=== PATIENT | female | born 1985 | race Caucasian/White ===

== ENCOUNTER 2016-09-14 02:37 | Emergency (ER) | payer OTHER ==
[2016-09-14] MEDS ORDERED: KETOROLAC 30 MG/ML VIAL (J1885) As Ordered ONE (03:32)
[2016-09-14] MEDS ORDERED: LORazepam 2 MG/ML VIAL (J2060) As Ordered ONE ×2 (03:35→04:32)
--- NOTE | 2016-09-14 05:34 | EDDOCDS ---
Physician Documentation [facility] Name: Alessia Huff Age: 31 yrs Sex: Female : 1985 Arrival Date: 09/14/2016 Time: 02:37 Bed 5 Private MD: Disposition: 09/14/16 05:16 Discharged to Home/Self Care. Impression: Pelvic and perineal pain - Chronic. - Condition is Stable. - Medication Reconciliation, Local Pharmacy Hours form. - Follow up: Private Physician; When: Call to arrange an appointment; Reason: Recheck today's complaints, Continuance of care. - Problem is chronic. - Symptoms have improved. Historical: - Allergies: Morphine (Chest pain, SOB, itching); Suprax (Hives); - Home Meds: 1. estradiol 2 mg Oral tab 2 tab once daily 2. oxycodone 5 mg Oral tab 3 times per day (Last dose: 09/13/2016 23:00) 3. Xanax 0.5 mg Oral tab 1 tab as needed 4. Zanaflex 4 mg Oral tab 1 tab every 8 hours 5. Zoloft 100 mg Oral tab 2 tabs once daily - PMHx: Anxiety; Endometriosis; IBS; ulcers; - PSHx: laproscopy X 8; Hysterectomy; - Social history: Smoking status: Patient states was never smoker of tobacco. No barriers to communication noted, The patient speaks fluent Serbian, Speaks appropriately for age. - Family history: No immediate family members are acutely ill. - : The pt / caregiver states he / she is not on anticoagulants. Home medication list is obtained from the patient. - Exposure Risk Screening:: None identified. 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 1 in. (154.94 cm) (R); 02:46 BP 138 / 102 LA Standing (man/lg); jmb 05:32 BP 92 / 58; Pulse 64; Resp 18; Temp 97.1(O); Pulse Ox 96% on R/A; Pain 3/10; nn1 02:46 Body Mass Index 33.07 (79.38 kg, 154.94 cm) andrea MDM: 03:26 IV Saline Lock ordered. cs11 03:26 ketorolac 30 mg IVP once ordered. cs11 03:32 LORazepam 1 mg IVP once ordered. cs11 03:40 Financial registration complete. hs2 03:41 [facility] Payment Agreement was scanned into [employer] and attached to record. hs2 04:29 LORazepam 1 mg IVP once ordered. cs11 Administered Medications: 03:42 Drug: ketorolac 30 mg [ketorolac 30 mg/mL (1 mL) injection solution (1 mL)] Route: IVP; nn1 Site: left antecubital; 03:42 Drug: LORazepam 1 mg [lorazepam 2 mg/mL injection solution (0.5 mL)] Route: IVP; Site: nn1 left antecubital; 04:42 Drug: LORazepam 1 mg [lorazepam 2 mg/mL injection solution (0.5 mL)] Route: IVP; Site: nn1 left antecubital; Signatures: Skyler Miramontes, DO cs11 Brijesh OrtizRN RN juanab Ariel Aguilar,RN RN nn1 Amy Valdez, Reg Reg hs2 The chart was reviewed and I authenticate all verbal orders and agree with the evaluation and treatment provided.Attachments: 03:41 [facility] Payment Agreement hs2 MTDD
--- NOTE | 2016-09-14 05:34 | EDDOCDS ---
Nurse's Notes [facility] Name: Alessia Huff Age: 31 yrs Sex: Female : 1985 Arrival Date: 09/14/2016 Time: 02:37 Bed 5 Private MD: Diagnosis: Pelvic and perineal pain-Chronic Presentation: 09/14 02:43 Presenting complaint: Patient states: Patient reports pelvic pain that has been present jmb for couple days since seeing specialist in [place]. Patient reports having transvaginal trigger point injections and abdominal trigger point injections. Adult Sepsis Screening: The patient does not have new or worsening altered mentation. Patient's respiratory rate is less than 22. Systolic blood pressure is greater than 100. Patient has a qSOFA score of 0- Negative Sepsis Screen. Suicide/Homicide risk assessment- the patient denies having any suicidal and/or homicidal ideations and does not present with any other emotional, behavioral or mental health complaints. Status: Patient is not a pump servicer helper or dependent. Transition of care: patient was not received from another setting of care. 02:43 Acuity: LORENZO Level 3 b 02:43 Method Of Arrival: Walkin/Carried/Asstd jmb Triage Assessment: 02:46 General: Appears uncomfortable, Behavior is appropriate for age, cooperative. Pain: jmb Location: pelvis Pain currently is 7 out of 10 on a pain scale. HIV screening NA for this visit Offered previously. The patient is triaged at the bedside. See Assessment in Nurses Notes section of ED record. The patient is triaged at the bedside. See Assessment in Nurses Notes section of ED record. Neurological: Level of Consciousness is awake, alert, obeys commands, Oriented to person, place, time, Gait is steady, Speech is normal, Facial symmetry appears normal, Facial symmetry: tongue is midline. Respiratory: Airway is patent Respiratory effort is even, unlabored, Respiratory pattern is regular, symmetrical. Derm: Skin is pink, warm & dry. Musculoskeletal: Capillary refill < 3 seconds. 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 estradiol 2 mg Oral tab 2 tab once daily 2. oxycodone 5 mg Oral tab 3 times per day (Last dose: 09/13/2016 23:00) 3. Xanax 0.5 mg Oral tab 1 tab as needed 4. Zanaflex 4 mg Oral tab 1 tab every 8 hours 5. Zoloft 100 mg Oral tab 2 tabs once daily - PMHx: Anxiety; Endometriosis; IBS; ulcers; - PSHx: laproscopy X 8; Hysterectomy; - Social history: Smoking status: Patient states was never smoker of tobacco. No barriers to communication noted, The patient speaks fluent Filipino, Speaks appropriately for age. - Family history: No immediate family members are acutely ill. - : The pt / caregiver states he / she is not on anticoagulants. Home medication list is obtained from the patient. - Exposure Risk Screening:: None identified. Screenin:32 Screening information is obtained from the patient. Fall risk: No risks identified. nn1 Assistance ADL's: requires no assistance with activities of daily living. Abuse/DV Screen: The patient / caregiver reports he/she is: not in a situation that causes fear, pain or injury. Nutritional screening: No deficits noted. Advance Directives: Currently, there is no health care proxy. home support is adequate. Assessment: 02:57 General: Appears distressed, uncomfortable, Behavior is anxious, crying. Pain: nn1 Location: pelvis Pain currently is 7 out of 10 on a pain scale. Neurological: Level of Consciousness is awake, alert, Oriented to person, place, time. Respiratory: Airway is patent Respiratory effort is even, unlabored. GI: Abdomen is non- distended Bowel sounds present X 4 quads. Abd is soft and non tender X 4 quads. Denies nausea, vomiting. : Denies burning with urination, vaginal bleeding. Derm: Skin is pink, warm & dry. 03:42 General: Appears uncomfortable, Behavior is crying. Neurological: Level of nn1 Consciousness is awake, alert. Derm: Skin is pink, warm & dry. 04:26 General: Appears Denies Patient reports no relief of pain at this time. Patient in nn1 room, continues to cry. Provider notified. . 04:42 General: Patient medicated for pain per orders. . nn1 05:25 General: Appears in no apparent distress, comfortable, Behavior is appropriate for age, nn1 cooperative, Patient reports improvement in condition at this time, states pain is manageable at this time. Patient resting comfortably. . Neurological: Level of Consciousness is awake, alert. Derm: Skin is pink, warm & dry. 05:32 Pain: Location: pelvis Pain currently is 3 out of 10 on a pain scale. nn1 Vital Signs: 02:46 BP 139 / 100; Pulse 105; Resp 22; Temp 97.7(O); Pulse Ox 100% on R/A; Weight 79.38 kg jmb (R); Height 5 ft. 1 in. (154.94 cm) (R); 02:46 BP 138 / 102 LA Standing (man/lg); jmb 05:32 BP 92 / 58; Pulse 64; Resp 18; Temp 97.1(O); Pulse Ox 96% on R/A; Pain 3/10; nn1 02:46 Body Mass Index 33.07 (79.38 kg, 154.94 cm) [facility] Vitals: 02:46 Log In Time: September 14, 2016 at 02:35. [facility] ED Course: 02:38 Patient visited by Taylor Arroyo. gjb 02:38 Patient moved to Waiting gjb 02:44 Triage Initiated [facility] 02:51 Patient moved to 5 jm 02:54 Skyler Miramontes DO is Attending Physician. cs11 02:54 Patient visited by kSyler Miramontes DO. cs11 03:41 [facility] Payment Agreement was scanned into [employer] and attached to record. hs2 03:43 Inserted saline lock: 20 gauge in left antecubital area. nn1 04:18 Patient visited by Ariel Aguilar RN. nn1 05:33 The patient / caregiver is instructed regarding the plan of care and ED course. nn1 05:33 Discontinued IV bleeding controlled, pressure dressing applied, No redness/swelling at nn1 site. No procedures done that require assistance. Administered Medications: 03:42 Drug: ketorolac 30 mg [ketorolac 30 mg/mL (1 mL) injection solution (1 mL)] Route: IVP; nn1 Site: left antecubital; 03:42 Drug: LORazepam 1 mg [lorazepam 2 mg/mL injection solution (0.5 mL)] Route: IVP; Site: nn1 left antecubital; 04:42 Drug: LORazepam 1 mg [lorazepam 2 mg/mL injection solution (0.5 mL)] Route: IVP; Site: nn1 left antecubital; Order Results: There are currently no results for this order. Outcome: 05:16 Discharge ordered by Provider. cs11 05:33 Discharge Assessment: Patient awake, alert and oriented x 3. No cognitive and/or nn1 functional deficits noted. Patient verbalized understanding of disposition instructions. patient administered narcotics - yes. Pt provided with safe discharge. The following High Risk Discharge criteria are identified: None. Discharged to home ambulatory. Condition: stable. No special radiology studies were completed. Property :Personal belongings accompany Pt. 05:33 Patient left the ED. nn1 Signatures: Skyler Miramontes, DO cs11 Brijesh OrtizRN RN Ariel Etienne RN RN nn1 Taylor Arroyo Hillary, Reg Reg hs2 MTDD
--- NOTE | 2016-09-16 06:34 | EDDOCDS ---
Physician Documentation [facility] Name: Alessia Huff Age: 31 yrs Sex: Female : 1985 Arrival Date: 09/14/2016 Time: 02:37 Bed 5 Private MD: Disposition: 09/14/16 05:16 Discharged to Home/Self Care. Impression: Pelvic and perineal pain - Chronic. - Condition is Stable. - Medication Reconciliation, Local Pharmacy Hours form. - Follow up: Private Physician; When: Call to arrange an appointment; Reason: Recheck today's complaints, Continuance of care. - Problem is chronic. - Symptoms have improved. Historical: - Allergies: Morphine (Chest pain, SOB, itching); Suprax (Hives); - Home Meds: 1. estradiol 2 mg Oral tab 2 tab once daily 2. oxycodone 5 mg Oral tab 3 times per day (Last dose: 09/13/2016 23:00) 3. Xanax 0.5 mg Oral tab 1 tab as needed 4. Zanaflex 4 mg Oral tab 1 tab every 8 hours 5. Zoloft 100 mg Oral tab 2 tabs once daily - PMHx: Anxiety; Endometriosis; IBS; ulcers; - PSHx: laproscopy X 8; Hysterectomy; - Social history: Smoking status: Patient states was never smoker of tobacco. No barriers to communication noted, The patient speaks fluent Belarusian, Speaks appropriately for age. - Family history: No immediate family members are acutely ill. - : The pt / caregiver states he / she is not on anticoagulants. Home medication list is obtained from the patient. - Exposure Risk Screening:: None identified. 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 1 in. (154.94 cm) (R); 02:46 BP 138 / 102 LA Standing (man/lg); jmb 05:32 BP 92 / 58; Pulse 64; Resp 18; Temp 97.1(O); Pulse Ox 96% on R/A; Pain 3/10; nn1 02:46 Body Mass Index 33.07 (79.38 kg, 154.94 cm) andrea MDM: 03:26 IV Saline Lock ordered. cs11 03:26 ketorolac 30 mg IVP once ordered. cs11 03:32 LORazepam 1 mg IVP once ordered. cs11 03:40 Financial registration complete. hs2 03:41 [facility] Payment Agreement was scanned into [employer] and attached to record. hs2 04:29 LORazepam 1 mg IVP once ordered. cs11 09:06 T-Sheet-- Draft Copy was scanned into [employer] and attached to record. seh Administered Medications: 03:42 Drug: ketorolac 30 mg [ketorolac 30 mg/mL (1 mL) injection solution (1 mL)] Route: IVP; nn1 Site: left antecubital; 03:42 Drug: LORazepam 1 mg [lorazepam 2 mg/mL injection solution (0.5 mL)] Route: IVP; Site: nn1 left antecubital; 04:42 Drug: LORazepam 1 mg [lorazepam 2 mg/mL injection solution (0.5 mL)] Route: IVP; Site: nn1 left antecubital; Signatures: Skyler Miramontes, DO cs11 Brijesh Ortiz RN RN jmb Ariel Aguilar RN RN nn1 Amy Valdez, Reg Reg hs2 Debby Villaseñor [facility] The chart was reviewed and I authenticate all verbal orders and agree with the evaluation and treatment provided.Attachments: 03:41 [facility] Payment Agreement hs2 09:06 T-Sheet-- Draft Copy se Chart Complete MTDD
--- NOTE | 2016-09-16 06:34 | EDDOCDS ---
Physician Documentation [facility] Name: Alessia Huff Age: 31 yrs Sex: Female : 1985 Arrival Date: 09/14/2016 Time: 02:37 Bed 5 Private MD: Disposition: 09/14/16 05:16 Discharged to Home/Self Care. Impression: Pelvic and perineal pain - Chronic. - Condition is Stable. - Medication Reconciliation, Local Pharmacy Hours form. - Follow up: Private Physician; When: Call to arrange an appointment; Reason: Recheck today's complaints, Continuance of care. - Problem is chronic. - Symptoms have improved. Historical: - Allergies: Morphine (Chest pain, SOB, itching); Suprax (Hives); - Home Meds: 1. estradiol 2 mg Oral tab 2 tab once daily 2. oxycodone 5 mg Oral tab 3 times per day (Last dose: 09/13/2016 23:00) 3. Xanax 0.5 mg Oral tab 1 tab as needed 4. Zanaflex 4 mg Oral tab 1 tab every 8 hours 5. Zoloft 100 mg Oral tab 2 tabs once daily - PMHx: Anxiety; Endometriosis; IBS; ulcers; - PSHx: laproscopy X 8; Hysterectomy; - Social history: Smoking status: Patient states was never smoker of tobacco. No barriers to communication noted, The patient speaks fluent Faroese, Speaks appropriately for age. - Family history: No immediate family members are acutely ill. - : The pt / caregiver states he / she is not on anticoagulants. Home medication list is obtained from the patient. - Exposure Risk Screening:: None identified. 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 1 in. (154.94 cm) (R); 02:46 BP 138 / 102 LA Standing (man/lg); jmb 05:32 BP 92 / 58; Pulse 64; Resp 18; Temp 97.1(O); Pulse Ox 96% on R/A; Pain 3/10; nn1 02:46 Body Mass Index 33.07 (79.38 kg, 154.94 cm) andrea MDM: 03:26 IV Saline Lock ordered. cs11 03:26 ketorolac 30 mg IVP once ordered. cs11 03:32 LORazepam 1 mg IVP once ordered. cs11 03:40 Financial registration complete. hs2 03:41 [facility] Payment Agreement was scanned into [employer] and attached to record. hs2 04:29 LORazepam 1 mg IVP once ordered. cs11 09:06 T-Sheet-- Draft Copy was scanned into [employer] and attached to record. seh Administered Medications: 03:42 Drug: ketorolac 30 mg [ketorolac 30 mg/mL (1 mL) injection solution (1 mL)] Route: IVP; nn1 Site: left antecubital; 03:42 Drug: LORazepam 1 mg [lorazepam 2 mg/mL injection solution (0.5 mL)] Route: IVP; Site: nn1 left antecubital; 04:42 Drug: LORazepam 1 mg [lorazepam 2 mg/mL injection solution (0.5 mL)] Route: IVP; Site: nn1 left antecubital; Signatures: Skyler Miramontes, DO cs11 Brijesh Ortiz RN RN jmb Ariel Aguilar RN RN nn1 Amy Valdez, Reg Reg hs2 Debby Villaseñor [facility] The chart was reviewed and I authenticate all verbal orders and agree with the evaluation and treatment provided.Attachments: 03:41 [facility] Payment Agreement hs2 09:06 T-Sheet-- Draft Copy se Chart Complete MTDD
--- NOTE | 2016-09-16 06:34 | EDDOCDS ---
Nurse's Notes [facility] Name: Alessia Huff Age: 31 yrs Sex: Female : 1985 Arrival Date: 09/14/2016 Time: 02:37 Bed 5 Private MD: Diagnosis: Pelvic and perineal pain-Chronic Presentation: 09/14 02:43 Presenting complaint: Patient states: Patient reports pelvic pain that has been present jmb for couple days since seeing specialist in [place]. Patient reports having transvaginal trigger point injections and abdominal trigger point injections. Adult Sepsis Screening: The patient does not have new or worsening altered mentation. Patient's respiratory rate is less than 22. Systolic blood pressure is greater than 100. Patient has a qSOFA score of 0- Negative Sepsis Screen. Suicide/Homicide risk assessment- the patient denies having any suicidal and/or homicidal ideations and does not present with any other emotional, behavioral or mental health complaints. Status: Patient is not a services tech or dependent. Transition of care: patient was not received from another setting of care. 02:43 Acuity: LORENZO Level 3 b 02:43 Method Of Arrival: Walkin/Carried/Asstd jmb Triage Assessment: 02:46 General: Appears uncomfortable, Behavior is appropriate for age, cooperative. Pain: jmb Location: pelvis Pain currently is 7 out of 10 on a pain scale. HIV screening NA for this visit Offered previously. The patient is triaged at the bedside. See Assessment in Nurses Notes section of ED record. The patient is triaged at the bedside. See Assessment in Nurses Notes section of ED record. Neurological: Level of Consciousness is awake, alert, obeys commands, Oriented to person, place, time, Gait is steady, Speech is normal, Facial symmetry appears normal, Facial symmetry: tongue is midline. Respiratory: Airway is patent Respiratory effort is even, unlabored, Respiratory pattern is regular, symmetrical. Derm: Skin is pink, warm & dry. Musculoskeletal: Capillary refill < 3 seconds. 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 estradiol 2 mg Oral tab 2 tab once daily 2. oxycodone 5 mg Oral tab 3 times per day (Last dose: 09/13/2016 23:00) 3. Xanax 0.5 mg Oral tab 1 tab as needed 4. Zanaflex 4 mg Oral tab 1 tab every 8 hours 5. Zoloft 100 mg Oral tab 2 tabs once daily - PMHx: Anxiety; Endometriosis; IBS; ulcers; - PSHx: laproscopy X 8; Hysterectomy; - Social history: Smoking status: Patient states was never smoker of tobacco. No barriers to communication noted, The patient speaks fluent Gabonese, Speaks appropriately for age. - Family history: No immediate family members are acutely ill. - : The pt / caregiver states he / she is not on anticoagulants. Home medication list is obtained from the patient. - Exposure Risk Screening:: None identified. Screenin:32 Screening information is obtained from the patient. Fall risk: No risks identified. nn1 Assistance ADL's: requires no assistance with activities of daily living. Abuse/DV Screen: The patient / caregiver reports he/she is: not in a situation that causes fear, pain or injury. Nutritional screening: No deficits noted. Advance Directives: Currently, there is no health care proxy. home support is adequate. Assessment: 02:57 General: Appears distressed, uncomfortable, Behavior is anxious, crying. Pain: nn1 Location: pelvis Pain currently is 7 out of 10 on a pain scale. Neurological: Level of Consciousness is awake, alert, Oriented to person, place, time. Respiratory: Airway is patent Respiratory effort is even, unlabored. GI: Abdomen is non- distended Bowel sounds present X 4 quads. Abd is soft and non tender X 4 quads. Denies nausea, vomiting. : Denies burning with urination, vaginal bleeding. Derm: Skin is pink, warm & dry. 03:42 General: Appears uncomfortable, Behavior is crying. Neurological: Level of nn1 Consciousness is awake, alert. Derm: Skin is pink, warm & dry. 04:26 General: Appears Denies Patient reports no relief of pain at this time. Patient in nn1 room, continues to cry. Provider notified. . 04:42 General: Patient medicated for pain per orders. . nn1 05:25 General: Appears in no apparent distress, comfortable, Behavior is appropriate for age, nn1 cooperative, Patient reports improvement in condition at this time, states pain is manageable at this time. Patient resting comfortably. . Neurological: Level of Consciousness is awake, alert. Derm: Skin is pink, warm & dry. 05:32 Pain: Location: pelvis Pain currently is 3 out of 10 on a pain scale. nn1 Vital Signs: 02:46 BP 139 / 100; Pulse 105; Resp 22; Temp 97.7(O); Pulse Ox 100% on R/A; Weight 79.38 kg [facility] (R); Height 5 ft. 1 in. (154.94 cm) (R); 02:46 BP 138 / 102 LA Standing (man/lg); jmb 05:32 BP 92 / 58; Pulse 64; Resp 18; Temp 97.1(O); Pulse Ox 96% on R/A; Pain 3/10; nn1 02:46 Body Mass Index 33.07 (79.38 kg, 154.94 cm) [facility] Vitals: 02:46 Log In Time: September 14, 2016 at 02:35. [facility] ED Course: 02:38 Patient visited by Taylor Arroyo. gjb 02:38 Patient moved to Waiting gj 02:44 Triage Initiated [facility] 02:51 Patient moved to 5 jm 02:54 Skyler Miramontes DO is Attending Physician. cs11 02:54 Patient visited by Skyler Miramontes DO. cs11 03:41 [facility] Payment Agreement was scanned into [employer] and attached to record. hs2 03:43 Inserted saline lock: 20 gauge in left antecubital area. nn1 04:18 Patient visited by Ariel Aguilar RN. nn1 05:33 The patient / caregiver is instructed regarding the plan of care and ED course. nn1 05:33 Discontinued IV bleeding controlled, pressure dressing applied, No redness/swelling at nn1 site. No procedures done that require assistance. 09:06 T-Sheet-- Draft Copy was scanned into [employer] and attached to record. [facility] Administered Medications: 03:42 Drug: ketorolac 30 mg [ketorolac 30 mg/mL (1 mL) injection solution (1 mL)] Route: IVP; nn1 Site: left antecubital; 03:42 Drug: LORazepam 1 mg [lorazepam 2 mg/mL injection solution (0.5 mL)] Route: IVP; Site: nn1 left antecubital; 04:42 Drug: LORazepam 1 mg [lorazepam 2 mg/mL injection solution (0.5 mL)] Route: IVP; Site: nn1 left antecubital; Order Results: There are currently no results for this order. Outcome: 05:16 Discharge ordered by Provider. cs11 05:33 Discharge Assessment: Patient awake, alert and oriented x 3. No cognitive and/or nn1 functional deficits noted. Patient verbalized understanding of disposition instructions. patient administered narcotics - yes. Pt provided with safe discharge. The following High Risk Discharge criteria are identified: None. Discharged to home ambulatory. Condition: stable. No special radiology studies were completed. Property :Personal belongings accompany Pt. 05:33 Patient left the ED. nn1 Signatures: Skyler Miramontes, DO cs11 Brijesh OrtizRN RN Ariel EtienneRN RN nn1 aTylor Arroyo Hillary, Reg Reg hs2 Debby Villaseñor Chart Complete MTDD
== END 2016-09-14 05:33 | disposition home or self-care (01) ==
LOC: M ED 02:37
DX: R10.2 Pelvic and perineal pain (principal); K58.9 Irritable bowel syndrome, unspecified; F41.9 Anxiety disorder, unspecified; N80.9 Endometriosis, unspecified; Z90.710 Acquired absence of both cervix and uterus; Z79.899 Other long term (current) drug therapy; Z79.891 Long term (current) use of opiate analgesic; Z79.890 Hormone replacement therapy; Z88.5 Allergy status to narcotic agent
CPT/HCPCS: 99283; J1885; J2060

== ENCOUNTER 2016-10-11 03:12 | Emergency (ER) | payer OTHER ==
[2016-10-11 04:06] LABS: BASO % 0.5 % (0.0-1.0); EOS # 0.5 K/mm3 (0.0-0.50); EOS % 8.2 % (0.0-3.0); LARGE UNSTAINED CELL # 0.2 K/mm3 (0.0-0.4); LYMPH # 2.3 K/mm3 (1.5-4.5); LYMPH % 37.1 % (24.0-44.0); MEAN CORPUSCULAR HEMOGLOBIN 28.9 pg (27.0-33.0); MEAN CORPUSCULAR HGB CONC 33.3 g/dl (32.0-36.5); MONO # 0.3 K/mm3 (0.0-0.8); MONO % 4.4 % (0.0-5.0); NEUTROPHILS # 2.9 K/mm3 (1.8-7.7); NEUTROPHILS % 46.8 % (36.0-66.0); PLATELET COUNT, AUTOMATED 283 k/mm3 (150-450); RED CELL DISTRIBUTION WIDTH 13.4 % (11.5-14.5); WHITE BLOOD COUNT 6.1 K/mm3 (4.0-10.0)
[2016-10-11] MEDS ORDERED: HYDROmorphone HCL 1 MG/ML SYRINGE (J1170) As Ordered ONE ×2 (04:06→06:41)
[2016-10-11] MEDS ORDERED: ONDANSETRON 4MG/2ML VIAL (J2405) As Ordered ONE (04:06)
[2016-10-11 04:39] LABS: CONTROL LINE HCG INT CTR LINE PRESENT
[2016-10-11 04:46] LABS: ALBUMIN 3.4 GM/DL (3.2-5.2); ALBUMIN/GLOBULIN RATIO 0.92 (1.00-1.93); ALKALINE PHOSPHATASE 64 U/L (45-117); ALT/SGPT 14 U/L (12-78); AMYLASE 50 U/L (25-115); ANION GAP 8 MEQ/L (8-16); AST/SGOT 15 U/L (15-37); BILIRUBIN,DIRECT < 0.1 MG/DL (0.0-0.2); BILIRUBIN,TOTAL 0.1 MG/DL (0.2-1.0); BLOOD UREA NITROGEN 11 MG/DL (7-18); CALCIUM LEVEL 8.4 MG/DL (8.5-10.1); CARBON DIOXIDE LEVEL 26 MEQ/L (21-32); CHLORIDE LEVEL 106 MEQ/L (98-107); CREATININE FOR GFR 0.81 MG/DL (0.55-1.02); GLOMERULAR FILTRATION RATE > 60.0 (>60); GLUCOSE, FASTING 96 MG/DL (70-105); POTASSIUM SERUM 3.6 MEQ/L (3.5-5.1); SODIUM LEVEL 140 MEQ/L (136-145); TOTAL PROTEIN 7.1 GM/DL (6.4-8.2)
[2016-10-11 04:50] LABS: INR 1.04
[2016-10-11] MEDS ORDERED: GI COCKTAIL 50ML BTL(HYOSCYAMINE/MAALOX/LIDOCAINE VISCOUS)(1:3:1) As Ordered ONE (05:09)
[2016-10-11] MEDS ORDERED: PANTOPRAZOLE 40MG INJ (PROTONIX) (C9113) As Ordered ONE (05:09)
[2016-10-11] MEDS ORDERED: ISOVUE-370 76% 100ML VIAL (Q9967) As Ordered ONE (05:11)
--- NOTE | 2016-10-11 05:40 | REPUSA ---
CLINICAL HISTORY: Abdominal pain. TECHNIQUE: Multiple axial, sagittal and coronal CT images were obtained through the abdomen and pelvi s after administration of intravenous contrast material. COMMENTS: The liver is mildly enlarged with decreased attenuation without mass or defect. There is no intra or extrahepatic biliary ductal dilatation. The spleen is normal. The gallbladder is surgically absent. T he pancreas is of normal contour and attenuation characteristics. There is no evidence of adrenal mas s. Both kidneys demonstrate prompt and equal nephrograms. The kidneys are normal in size, shape and conf iguration. There is no evidence of renal or ureteral mass. No renal or ureteral calculi are identifie d. There is no hydroureter or hydronephrosis. No evidence for appendicitis. There is no bowel wall thickening. No evidence for small or large farhat l obstruction. There is no evidence of abdominal ascites or lymphadenopathy. Both small bowels. There is no evidence of intrinsic or extrinsic bladder mass. There is no pelvic ascites or lymphadeno mame. Fecal stasis. Images of the lung bases show no evidence of pleural or parenchymal mass. There are no pleural effusi ons. The bony structures are free of lytic or blastic lesions. Multilevel degenerative changes are seen in volving the thoracolumbar spine. Scattered calcifications are seen involving the aorta and major bran ches compatible with atherosclerosis. IMPRESSION: Fluid filled small bowels. Ileus versus developing enteritis. Fecal stasis. Thank you for your kind referral of this patient.
[2016-10-11] MEDS ORDERED: SUCRALFATE 1 GM TAB As Ordered ONE (06:41)
[2016-10-11] MEDS ORDERED: FAMOTIDINE 20 MG TAB As Ordered ONE (06:41)
--- NOTE | 2016-10-11 07:04 | EDDOCDS ---
Physician Documentation [facility] Name: Alessia Huff Age: 31 yrs Sex: Female : 1985 Arrival Date: 10/11/2016 Time: 03:12 Bed 6 Private MD: Disposition: 10/11/16 06:29 Discharged to Home/Self Care. Impression: Abdominal and pelvic pain - suspect PUD. - Condition is Stable. - Discharge Instructions: Abdominal Pain, Adult, Peptic Ulcer Disease. - Prescriptions for Carafate 1 gram Oral Tablet - take 1 tablet by ORAL route 4 times per day take on an empty stomach, beginning on waking and last dose at bedtime; 100 tablet. Pepcid 20 mg Oral Tablet - take 1 tablet by ORAL route every 12 hours for 5 days; 10 tablet. Percocet 5- 325 mg Oral Tablet - take 1 tablet by ORAL route every 6 hours As needed MDD: 4 tabs; 20 tablet. - Medication Reconciliation, Local Pharmacy Hours form. - Follow up: PAMELA Ga; When: 2 - 3 days; Reason: Continuance of care. - Problem is an acute exacerbation. - Symptoms have improved. Historical: - Allergies: Morphine (Chest pain, SOB, itching); Suprax (Hives); - Home Meds: 1. estradiol 2 mg Oral tab 2 tab once daily 2. oxycodone 5 mg Oral tab 3 times per day 3. Xanax 0.5 mg Oral tab 1 tab as needed 4. Zanaflex 4 mg Oral tab 1 tab every 8 hours 5. Zoloft 100 mg Oral tab 2 tabs once daily 6. Nexium 40 mg Oral cpDR 1 cap 2 times per day - PMHx: Anxiety; Endometriosis; IBS; ulcers; - PSHx: laproscopy X 8; Hysterectomy; Hernia repair- Umbilical; Cholecystectomy; Atrial septal defect repair; cystocele rupture repair; Laparoscopy; - Social history: Smoking status: Smoking status: Patient states was never smoker of tobacco. No barriers to communication noted, The patient speaks fluent Malaysian, Speaks appropriately for age. - Family history: No immediate family members are acutely ill. - : The pt / caregiver states he / she is not on anticoagulants. Home medication list is obtained from the patient. - Exposure Risk Screening:: None identified. 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 1 in. (154.94 cm); Pain 7/10; 03:28 Temp 98.9(O); kas2 03:33 BP 141 / 93 (auto/); mv5 03:34 Pulse Ox 96% ; mv5 04:03 BP 123 / 91 (auto/); mv5 04:03 Pulse Ox 98% ; mv5 04:33 BP 118 / 88 (auto/); mv5 04:33 Pulse Ox 96% ; mv5 05:03 BP 122 / 95 (auto/); mv5 05:03 Pulse 71; Resp 16; Pulse Ox 96% ; mv5 03:23 Body Mass Index 32.12 (77.11 kg, 154.94 cm) nn1 MDM: 03:58 NS 0.9% 1000 ml IV at bolus once ordered. mm11 03:58 Ondansetron 4 mg IVP once ordered. mm11 03:58 IV Saline Lock ordered. mm11 03:58 Undress patient appropriately for examination ordered. mm11 03:58 Dilaudid - HYDROmorphone 0.5 mg IVP once ordered. mm11 03:59 Amylase Ordered. EDMS 03:59 Basic Metabolic Profile Ordered. EDMS 03:59 CBC with Diff Ordered. EDMS 03:59 HCG,Serum Qualitative Ordered. EDMS 03:59 Lipase Ordered. EDMS 03:59 Liver Profile Ordered. EDMS 03:59 Partial Thromboplastin Time Ordered. EDMS 03:59 Prothrombin Time Profile\E\INR Ordered. EDMS 04:00 Type & Screen Ordered. EDMS 04:00 NOTHING BY MOUTH+DIET ordered. EDMS 04:54 Financial registration complete. pm4 05:03 GI Cocktail - (Alum-Mag Hydroxide-Simeth 30 ml, Lidocaine 10 ml, Hyoscyamine 10 ml) PO mm11 once; Pre-mixed 50mL unit dose ordered. 05:03 pantoprazole 40 mg IV at bolus once ordered. mm11 05:03 Basic Metabolic Profile Reviewed. mm11 05:03 CBC with Diff Reviewed. mm11 05:03 Liver Profile Reviewed. mm11 05:03 Amylase Reviewed. mm11 05:03 HCG,Serum Qualitative Reviewed. mm11 05:03 Lipase Reviewed. mm11 05:03 Partial Thromboplastin Time Reviewed. mm11 05:03 Prothrombin Time Profile\E\INR Reviewed. mm11 05:03 Type & Screen Reviewed. mm11 05:05 CT ABD & PELVIS: IV Contrast Only Ordered. EDMS 05:17 [facility] Payment Agreement was scanned into [employer] and attached to record. pm4 06:29 Sucralfate 1 grams PO once ordered. mm11 06:29 Famotidine 20 mg PO once ordered. mm11 06:29 Dilaudid - HYDROmorphone 0.5 mg IVP once ordered. mm11 06:35 CT ABD & PELVIS: IV Contrast Only Reviewed. mm11 Administered Medications: 04:17 Drug: Dilaudid - HYDROmorphone 0.5 mg [hydromorphone 1 mg/mL injection syringe (0.5 mv5 mL)] Route: IVP; Site: left antecubital; 06:54 Follow up: Response: No Adverse Reaction mv5 04:18 Drug: NS 0.9% 1000 ml [sodium chloride 0.9 % intravenous solution] Route: IV; Rate: mv5 bolus; Site: left antecubital; 04:18 Drug: Ondansetron 4 mg [ondansetron HCl 2 mg/mL intravenous solution (2 mL)] Route: mv5 IVP; Site: left antecubital; 06:54 Follow up: Response: No Adverse Reaction mv5 05:15 Drug: GI Cocktail - (Alum-Mag Hydroxide-Simeth Suspension 225 mg-200 mg-25 mg/5 mL 30 mv5 ml, Lidocaine Liquid 2 % 10 ml, Hyoscyamine Liquid 10 ml) Route: PO; 06:54 Follow up: Response: No Adverse Reaction mv5 05:15 Drug: pantoprazole 40 mg [pantoprazole 40 mg intravenous solution] Route: IV; Rate: mv5 bolus; Site: left antecubital; 06:56 Follow up: IV Status: Completed infusion mv5 06:51 Drug: Sucralfate 1 grams [sucralfate 1 gram tablet (1 tabs)] Route: PO; mv5 06:53 Follow up: Response: No Adverse Reaction mv5 06:51 Drug: Famotidine 20 mg [famotidine 20 mg tablet (1 tabs)] Route: PO; mv5 06:53 Follow up: Response: No Adverse Reaction mv5 06:51 Drug: Dilaudid - HYDROmorphone 0.5 mg [hydromorphone 1 mg/mL injection syringe (0.5 mv5 mL)] Route: IVP; Site: left antecubital; 06:53 Follow up: Response: No Adverse Reaction mv5 Signatures: Dispatcher [employer] Joaquin Garcia DO DO mm11 Ariel Augilar,RN RN nn1 Walt Piña, Reg Reg pm4 Millie Morales RN RN mv5 The chart was reviewed and I authenticate all verbal orders and agree with the evaluation and treatment provided.Attachments: 05:17 [facility] Payment Agreement pm4 MTDD
--- NOTE | 2016-10-11 07:04 | EDDOCDS ---
Nurse's Notes [facility] Name: Alessia Huff Age: 31 yrs Sex: Female : 1985 Arrival Date: 10/11/2016 Time: 03:12 Bed 6 Private MD: Diagnosis: Abdominal and pelvic pain-suspect PUD Presentation: 10/11 03:18 Presenting complaint: Patient states: for the past 3 days she has been having nn1 increasing abdominal pain. Seen by PCP, prescribed nexium. Patient reports vomiting with blood. Risk factors: the patient reports no vaginal bleeding. Adult Sepsis Screening: The patient does not have new or worsening altered mentation. Patient's respiratory rate is less than 22. Systolic blood pressure is greater than 100. Patient has a qSOFA score of 0- Negative Sepsis Screen. Suicide/Homicide risk assessment- the patient denies having any suicidal and/or homicidal ideations and does not present with any other emotional, behavioral or mental health complaints. Status: The patient is a dependent. Transition of care: patient was not received from another setting of care. 03:18 Acuity: LORENZO Level 3 nn1 03:18 Method Of Arrival: Walkin/Carried/Asstd nn1 Triage Assessment: 03:24 General: Appears uncomfortable, Behavior is appropriate for age, cooperative. Pain: nn1 Location: epigastric area Pain currently is 7 out of 10 on a pain scale. Quality of pain is described as "Tearing throbbing pain" Pain began 2 weeks ago increasing steadily. HIV screening NA for this visit Offered previously. GI: Abdomen is non- distended Bowel sounds present X 4 quads. Abd is tender to palpation in epigastric area, right upper quadrant and left upper quadrant Reports nausea, vomiting, Vomiting coffee grounds x 2 weeks. More frequent last couple of days. Derm: Skin is pink, warm & dry. 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 estradiol 2 mg Oral tab 2 tab once daily 2. oxycodone 5 mg Oral tab 3 times per day 3. Xanax 0.5 mg Oral tab 1 tab as needed 4. Zanaflex 4 mg Oral tab 1 tab every 8 hours 5. Zoloft 100 mg Oral tab 2 tabs once daily 6. Nexium 40 mg Oral cpDR 1 cap 2 times per day - PMHx: Anxiety; Endometriosis; IBS; ulcers; - PSHx: laproscopy X 8; Hysterectomy; Hernia repair- Umbilical; Cholecystectomy; Atrial septal defect repair; cystocele rupture repair; Laparoscopy; - Social history: Smoking status: Smoking status: Patient states was never smoker of tobacco. No barriers to communication noted, The patient speaks fluent Irish, Speaks appropriately for age. - Family history: No immediate family members are acutely ill. - : The pt / caregiver states he / she is not on anticoagulants. Home medication list is obtained from the patient. - Exposure Risk Screening:: None identified. Screenin:34 Screening information is obtained from the patient. Fall risk: No risks identified. mv5 Assistance ADL's: requires no assistance with activities of daily living. Abuse/DV Screen: The patient / caregiver reports he/she is: not in a situation that causes fear, pain or injury. Nutritional screening: No deficits noted. Advance Directives: There is no active DNR order. home support is adequate. Assessment: 03:57 General: Appears uncomfortable, well nourished, well groomed, Behavior is cooperative, mv5 pleasant. Pain: Location: right upper quadrant and left upper quadrant Pain currently is 7 out of 10 on a pain scale. Neurological: Level of Consciousness is awake, alert, Oriented to person, place, time. Cardiovascular: Capillary refill < 3 seconds Heart tones S1 S2 present. Respiratory: Airway is patent Respiratory effort is even, unlabored, Respiratory pattern is regular, symmetrical. GI: Abdomen is flat, Bowel sounds present X 4 quads. Abd is tender to palpation in right upper quadrant and left upper quadrant. Derm: Skin is pink, warm & dry. 04:38 General: Appears in no apparent distress. Respiratory: Airway is patent Respiratory mv5 effort is even, unlabored, Respiratory pattern is regular, symmetrical. Derm: Skin is pink, warm & dry. 04:52 Reassessment: Patient states symptoms have not improved. aware.. mv5 05:36 General: Appears uncomfortable, Behavior is cooperative, pleasant. Respiratory: Airway mv5 is patent Respiratory effort is even, unlabored, Respiratory pattern is regular, symmetrical. Derm: Skin is pink, warm & dry. Vital Signs: 03:23 BP 142 / 90; Pulse 98; Resp 18; Pulse Ox 98% on R/A; Weight 77.11 kg; Height 5 ft. 1 nn1 in. (154.94 cm); Pain 7/10; 03:28 Temp 98.9(O); kas2 03:33 BP 141 / 93 (auto/); mv5 03:34 Pulse Ox 96% ; mv5 04:03 BP 123 / 91 (auto/); mv5 04:03 Pulse Ox 98% ; mv5 04:33 BP 118 / 88 (auto/); mv5 04:33 Pulse Ox 96% ; mv5 05:03 BP 122 / 95 (auto/); mv5 05:03 Pulse 71; Resp 16; Pulse Ox 96% ; mv5 03:23 Body Mass Index 32.12 (77.11 kg, 154.94 cm) nn1 Vitals: 03:23 Log In Time: October 11, 2016 at 03:12. nn1 ED Course: 03:13 Patient visited by Taylor Arroyo. gjb 03:13 Patient moved to Waiting gjb 03:19 Triage Initiated nn1 03:27 Millie Morales,KAYLA is Primary Nurse. nn1 03:27 Primary Nurse role handed off by Millie Morales RN cf2 03:27 Marge Jones,KAYLA is Primary Nurse. cf2 03:27 Patient visited by Marge Jones,KAYLA. cf2 03:27 Patient moved to 6 nn1 03:29 Patient visited by Shellie Sharpe RN. kas2 03:34 The patient / caregiver is instructed regarding the plan of care and ED course. mv5 03:34 Inserted saline lock: 20 gauge in left antecubital area and blood collected. The mv5 patient tolerated the procedure well. 03:45 Joaquin Pineda DO is Attending Physician. mm11 03:45 Patient visited by Joaquin Pineda DO. mm11 03:57 Patient visited by Joaquin Pineda DO. mm11 03:57 Millie Morales,KAYLA is Primary Nurse. mv5 04:03 Liver Profile Sent. mv5 04:03 Lipase Sent. mv5 04:03 HCG,Serum Qualitative Sent. mv5 04:04 CBC with Diff Sent. mv5 04:04 Basic Metabolic Profile Sent. mv5 04:04 Amylase Sent. mv5 04:18 Partial Thromboplastin Time Sent. mv5 04:18 Prothrombin Time Profile\\E\\INR Sent. mv5 04:18 Type & Screen Sent. mv5 04:26 Patient visited by Millie Morales RN. mv5 05:00 Patient visited by Millie Morales RN. mv5 05:17 [facility] Payment Agreement was scanned into [employer] and attached to record. pm4 05:38 Patient visited by Millie Morales RN. mv5 06:10 CT ABD & PELVIS: IV Contrast Only Returned. EDMS 06:20 Patient visited by Millie Morales RN. mv5 06:29 S[facility] is Referral Physician. mm11 06:52 Discontinued intact, bleeding controlled, pressure dressing applied, No mv5 redness/swelling at site. No procedures done that require assistance. Administered Medications: 04:17 Drug: Dilaudid - HYDROmorphone 0.5 mg [hydromorphone 1 mg/mL injection syringe (0.5 mv5 mL)] Route: IVP; Site: left antecubital; 06:54 Follow up: Response: No Adverse Reaction mv5 04:18 Drug: NS 0.9% 1000 ml [sodium chloride 0.9 % intravenous solution] Route: IV; Rate: mv5 bolus; Site: left antecubital; 04:18 Drug: Ondansetron 4 mg [ondansetron HCl 2 mg/mL intravenous solution (2 mL)] Route: mv5 IVP; Site: left antecubital; 06:54 Follow up: Response: No Adverse Reaction mv5 05:15 Drug: GI Cocktail - (Alum-Mag Hydroxide-Simeth Suspension 225 mg-200 mg-25 mg/5 mL 30 mv5 ml, Lidocaine Liquid 2 % 10 ml, Hyoscyamine Liquid 10 ml) Route: PO; 06:54 Follow up: Response: No Adverse Reaction mv5 05:15 Drug: pantoprazole 40 mg [pantoprazole 40 mg intravenous solution] Route: IV; Rate: mv5 bolus; Site: left antecubital; 06:56 Follow up: IV Status: Completed infusion mv5 06:51 Drug: Sucralfate 1 grams [sucralfate 1 gram tablet (1 tabs)] Route: PO; mv5 06:53 Follow up: Response: No Adverse Reaction mv5 06:51 Drug: Famotidine 20 mg [famotidine 20 mg tablet (1 tabs)] Route: PO; mv5 06:53 Follow up: Response: No Adverse Reaction mv5 06:51 Drug: Dilaudid - HYDROmorphone 0.5 mg [hydromorphone 1 mg/mL injection syringe (0.5 mv5 mL)] Route: IVP; Site: left antecubital; 06:53 Follow up: Response: No Adverse Reaction mv5 Order Results: Lab Order: Amylase; SPEC10/11/16 04:12 Test: AMYLASE; Value: 50; Range: 25-115; Units: U/L; Status: F Lab Order: Basic Metabolic Profile; SPEC10/11/16 04:12 Test: GLUCOSE, FASTING; Value: 96; Range: 70-105; Units: MG/DL; Status: F Test: BLOOD UREA NITROGEN; Value: 11; Range: 7-18; Units: MG/DL; Status: F Test: CREATININE FOR GFR; Value: 0.81; Range: 0.55-1.02; Units: MG/DL; Status: F Test: SODIUM LEVEL; Range: 136-145; Units: MEQ/L; Status: I Test: POTASSIUM SERUM; Range: 3.5-5.1; Units: MEQ/L; Status: I Test: CHLORIDE LEVEL; Range: 98-107; Units: MEQ/L; Status: I Test: CARBON DIOXIDE LEVEL; Range: 21-32; Units: MEQ/L; Status: I Test: ANION GAP; Range: 8-16; Units: MEQ/L; Status: I Test: CALCIUM LEVEL; Range: 8.5-10.1; Units: MG/DL; Status: I Test: GLOMERULAR FILTRATION RATE; Value: > 60.0; Range: >60; Status: F Test: SODIUM LEVEL; Value: 140; Range: 136-145; Units: MEQ/L; Status: F Test: POTASSIUM SERUM; Value: 3.6; Range: 3.5-5.1; Units: MEQ/L; Status: F Test: CHLORIDE LEVEL; Value: 106; Range: 98-107; Units: MEQ/L; Status: F Test: CARBON DIOXIDE LEVEL; Value: 26; Range: 21-32; Units: MEQ/L; Status: F Test: ANION GAP; Value: 8; Range: 8-16; Units: MEQ/L; Status: F Test: CALCIUM LEVEL; Value: 8.4; Range: 8.5-10.1; Abnormal: Below low normal; Units: MG/DL; Status: F Test Note: ; Units are mL/min/1.73 m2 Chronic Kidney Disease Staging per NKF: Stage I & II GFR >=60 Normal to Mildly Decreased Stage III GFR 30-59 Moderately Decreased Stage IV GFR 15-29 Severely Decreased Stage V GFR <15 Very Little GFR Left ESRD GFR <15 on MEDICAL LAB SCIENTIST Lab Order: CBC with Diff; SPEC'M 10/11/16 03:38 Test: WHITE BLOOD COUNT; Value: 6.1; Range: 4.0-10.0; Units: K/mm3; Status: F Test: RED BLOOD COUNT; Value: 4.45; Range: 4.00-5.40; Units: M/mm3; Status: F Test: HEMOGLOBIN; Value: 12.9; Range: 12.0-16.0; Units: g/dl; Status: F Test: HEMATOCRIT; Value: 38.7; Range: 36.0-47.0; Units: %; Status: F Test: MEAN CORPUSCULAR VOLUME; Value: 87.0; Range: 80.0-96.0; Units: fl; Status: F Test: MEAN CORPUSCULAR HEMOGLOBIN; Value: 28.9; Range: 27.0-33.0; Units: pg; Status: F Test: MEAN CORPUSCULAR HGB CONC; Value: 33.3; Range: 32.0-36.5; Units: g/dl; Status: F Test: RED CELL DISTRIBUTION WIDTH; Value: 13.4; Range: 11.5-14.5; Units: %; Status: F Test: PLATELET COUNT, AUTOMATED; Value: 283; Range: 150-450; Units: k/mm3; Status: F Test: NEUTROPHILS %; Value: 46.8; Range: 36.0-66.0; Units: %; Status: F Test: LYMPH %; Value: 37.1; Range: 24.0-44.0; Units: %; Status: F Test: MONO %; Value: 4.4; Range: 0.0-5.0; Units: %; Status: F Test: EOS %; Value: 8.2; Range: 0.0-3.0; Abnormal: Above high normal; Units: %; Status: F Test: BASO %; Value: 0.5; Range: 0.0-1.0; Units: %; Status: F Test: LARGE UNSTAINED CELL %; Value: 3.0; Range: 0.0-4.0; Units: %; Status: F Test: NEUTROPHILS #; Value: 2.9; Range: 1.8-7.7; Units: K/mm3; Status: F Test: LYMPH #; Value: 2.3; Range: 1.5-4.5; Units: K/mm3; Status: F Test: MONO #; Value: 0.3; Range: 0.0-0.8; Units: K/mm3; Status: F Test: EOS #; Value: 0.5; Range: 0.0-0.50; Units: K/mm3; Status: F Test: BASO #; Value: 0.0; Range: 0.0-0.2; Units: K/mm3; Status: F Test: LARGE UNSTAINED CELL #; Value: 0.2; Range: 0.0-0.4; Units: K/mm3; Status: F Lab Order: HCG,Serum Qualitative; [facility] 10/11/16 04:12 Test: HCG, SERUM QUALITATIVE; Value: NEGATIVE; Range: NEGATIVE; Status: F Lab Order: Lipase; [facility] 10/11/16 04:12 Test: LIPASE; Value: 186; Range: 73-393; Units: U/L; Status: F Lab Order: Liver Profile; [facility] 10/11/16 04:12 Test: AST/SGOT; Value: 15; Range: 15-37; Units: U/L; Status: F Test: ALT/SGPT; Value: 14; Range: 12-78; Units: U/L; Status: F Test: ALKALINE PHOSPHATASE; Value: 64; Range: 45-117; Units: U/L; Status: F Test: BILIRUBIN,TOTAL; Value: 0.1; Range: 0.2-1.0; Abnormal: Below low normal; Units: MG/DL; Status: F Test: BILIRUBIN,DIRECT; Value: < 0.1; Range: 0.0-0.2; Units: MG/DL; Status: F Test: TOTAL PROTEIN; Value: 7.1; Range: 6.4-8.2; Units: GM/DL; Status: F Test: ALBUMIN; Value: 3.4; Range: 3.2-5.2; Units: GM/DL; Status: F Test: ALBUMIN/GLOBULIN RATIO; Value: 0.92; Range: 1.00-1.93; Abnormal: Below low normal; Status: F Lab Order: Partial Thromboplastin Time; [facility] 10/11/16 04:12 Test: PARTIAL THROMBOPLASTIN TIME; Value: 31.5; Range: 26.6-37.1; Units: SECONDS; Status: F Lab Order: Prothrombin Time Profile\\E\\INR; 10/11/16 04:12 Test: PROTHROMBIN TIME; Value: 13.7; Range: 12.3-14.5; Units: SECONDS; Status: F Test: INR; Value: 1.04; Status: F Test Note: ; THERAPUTIC HUMAN INR VALUES INDICATIONS NORMAL RANGES PROPHYLAXIS/TREATMENT OF: VENOUS THROMBOSIS 2.0-3.0 PULMONARY EMBOLISM 2.0-3.0 PREVENTION OF SYSTEMIC EMBOLISM FROM: TISSUE HEART VALVES 2.0-3.0 ACUTE MYOCARDIAL INFARCTION 2.0-3.0 VALVULAR HEART DISEASE 2.0-3.0 ATRIAL FIBRILLATION 2.0-3.0 MECHANICAL VALVES(HIGH RISK) 2.5-3.5 RECURRENT MYOCARDIAL INFARCTION 2.5-3.5 Lab Order: Type & Screen; [facility] 04:12 Test: BLOOD TYPE; Value: O POS; Status: F Test: AB SCREEN (INDIRECT BRANDY)VIS; Value: NEGATIVE; Status: F Radiology Order: CT ABD & PELVIS: IV Contrast Only Test: CT ABD & PELVIS: IV Contrast Only REASON FOR EXAMINATION: Abdomen Pain; ; CLINICAL HISTORY: Abdominal pain.; TECHNIQUE: Multiple axial, sagittal and coronal CT images were obtained through the abdomen and pelvi; s after administration of intravenous contrast material.; COMMENTS:; The liver is mildly enlarged with decreased attenuation without mass or defect. There is no intra or; extrahepatic biliary ductal dilatation. The spleen is normal. The gallbladder is surgically absent. T; he pancreas is of normal contour and attenuation characteristics. There is no evidence of adrenal mas; s.; Both kidneys demonstrate prompt and equal nephrograms. The kidneys are normal in size, shape and conf; iguration. There is no evidence of renal or ureteral mass. No renal or ureteral calculi are identifie; d. There is no hydroureter or hydronephrosis.; No evidence for appendicitis. There is no bowel wall thickening. No evidence for small or large farhat; l obstruction. There is no evidence of abdominal ascites or lymphadenopathy. Both small bowels.; There is no evidence of intrinsic or extrinsic bladder mass. There is no pelvic ascites or lymphadeno; mame.; Fecal stasis.; Images of the lung bases show no evidence of pleural or parenchymal mass. There are no pleural effusi; ons.; The bony structures are free of lytic or blastic lesions. Multilevel degenerative changes are seen in; volving the thoracolumbar spine. Scattered calcifications are seen involving the aorta and major bran; ches compatible with atherosclerosis.; IMPRESSION:; Fluid filled small bowels. Ileus versus developing enteritis.; Fecal stasis.; Thank you for your kind referral of this patient.; ; Outcome: 06:29 Discharge ordered by Provider. mm11 06:52 Discharge Assessment: Patient awake, alert and oriented x 3. No cognitive and/or mv5 functional deficits noted. Patient verbalized understanding of disposition instructions. patient administered narcotics - yes. Pt provided with safe discharge. The following High Risk Discharge criteria are identified: None. Condition: stable. Discharge instructions given to patient, Demonstrated understanding of Pt was receptive of discharge instructions/ teaching. CT Study completed. Property sent home with patient. 07:03 Patient left the ED. mv5 Signatures: Dispatcher [employer] EDMS Joaquin Pineda DO DO mm11 Ariel AguilarRN RN prashant1 Taylor Arroyo Kim, RN RN [id number] Marge Jones,RN RN cf2 Walt Piña, Reg Reg pm4 Millie MoralesRN RN mv5 MTDD
--- NOTE | 2016-10-13 08:04 | EDDOCDS ---
Nurse's Notes [facility] Name: Alessia Huff Age: 31 yrs Sex: Female : 1985 Arrival Date: 10/11/2016 Time: 03:12 Bed 6 Private MD: Diagnosis: Abdominal and pelvic pain-suspect PUD Presentation: 10/11 03:18 Presenting complaint: Patient states: for the past 3 days she has been having nn1 increasing abdominal pain. Seen by PCP, prescribed nexium. Patient reports vomiting with blood. Risk factors: the patient reports no vaginal bleeding. Adult Sepsis Screening: The patient does not have new or worsening altered mentation. Patient's respiratory rate is less than 22. Systolic blood pressure is greater than 100. Patient has a qSOFA score of 0- Negative Sepsis Screen. Suicide/Homicide risk assessment- the patient denies having any suicidal and/or homicidal ideations and does not present with any other emotional, behavioral or mental health complaints. Status: The patient is a dependent. Transition of care: patient was not received from another setting of care. 03:18 Acuity: LORENZO Level 3 nn1 03:18 Method Of Arrival: Walkin/Carried/Asstd nn1 Triage Assessment: 03:24 General: Appears uncomfortable, Behavior is appropriate for age, cooperative. Pain: nn1 Location: epigastric area Pain currently is 7 out of 10 on a pain scale. Quality of pain is described as "Tearing throbbing pain" Pain began 2 weeks ago increasing steadily. HIV screening NA for this visit Offered previously. GI: Abdomen is non- distended Bowel sounds present X 4 quads. Abd is tender to palpation in epigastric area, right upper quadrant and left upper quadrant Reports nausea, vomiting, Vomiting coffee grounds x 2 weeks. More frequent last couple of days. Derm: Skin is pink, warm & dry. 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 estradiol 2 mg Oral tab 2 tab once daily 2. oxycodone 5 mg Oral tab 3 times per day 3. Xanax 0.5 mg Oral tab 1 tab as needed 4. Zanaflex 4 mg Oral tab 1 tab every 8 hours 5. Zoloft 100 mg Oral tab 2 tabs once daily 6. Nexium 40 mg Oral cpDR 1 cap 2 times per day - PMHx: Anxiety; Endometriosis; IBS; ulcers; - PSHx: laproscopy X 8; Hysterectomy; Hernia repair- Umbilical; Cholecystectomy; Atrial septal defect repair; cystocele rupture repair; Laparoscopy; - Social history: Smoking status: Smoking status: Patient states was never smoker of tobacco. No barriers to communication noted, The patient speaks fluent Welsh, Speaks appropriately for age. - Family history: No immediate family members are acutely ill. - : The pt / caregiver states he / she is not on anticoagulants. Home medication list is obtained from the patient. - Exposure Risk Screening:: None identified. Screenin:34 Screening information is obtained from the patient. Fall risk: No risks identified. mv5 Assistance ADL's: requires no assistance with activities of daily living. Abuse/DV Screen: The patient / caregiver reports he/she is: not in a situation that causes fear, pain or injury. Nutritional screening: No deficits noted. Advance Directives: There is no active DNR order. home support is adequate. Assessment: 03:57 General: Appears uncomfortable, well nourished, well groomed, Behavior is cooperative, mv5 pleasant. Pain: Location: right upper quadrant and left upper quadrant Pain currently is 7 out of 10 on a pain scale. Neurological: Level of Consciousness is awake, alert, Oriented to person, place, time. Cardiovascular: Capillary refill < 3 seconds Heart tones S1 S2 present. Respiratory: Airway is patent Respiratory effort is even, unlabored, Respiratory pattern is regular, symmetrical. GI: Abdomen is flat, Bowel sounds present X 4 quads. Abd is tender to palpation in right upper quadrant and left upper quadrant. Derm: Skin is pink, warm & dry. 04:38 General: Appears in no apparent distress. Respiratory: Airway is patent Respiratory mv5 effort is even, unlabored, Respiratory pattern is regular, symmetrical. Derm: Skin is pink, warm & dry. 04:52 Reassessment: Patient states symptoms have not improved. aware.. mv5 05:36 General: Appears uncomfortable, Behavior is cooperative, pleasant. Respiratory: Airway mv5 is patent Respiratory effort is even, unlabored, Respiratory pattern is regular, symmetrical. Derm: Skin is pink, warm & dry. Vital Signs: 03:23 BP 142 / 90; Pulse 98; Resp 18; Pulse Ox 98% on R/A; Weight 77.11 kg; Height 5 ft. 1 nn1 in. (154.94 cm); Pain 7/10; 03:28 Temp 98.9(O); kas2 03:33 BP 141 / 93 (auto/); mv5 03:34 Pulse Ox 96% ; mv5 04:03 BP 123 / 91 (auto/); mv5 04:03 Pulse Ox 98% ; mv5 04:33 BP 118 / 88 (auto/); mv5 04:33 Pulse Ox 96% ; mv5 05:03 BP 122 / 95 (auto/); mv5 05:03 Pulse 71; Resp 16; Pulse Ox 96% ; mv5 03:23 Body Mass Index 32.12 (77.11 kg, 154.94 cm) nn1 Vitals: 03:23 Log In Time: October 11, 2016 at 03:12. nn1 ED Course: 03:13 Patient visited by Taylor Arroyo. gjb 03:13 Patient moved to Waiting gjb 03:19 Triage Initiated nn1 03:27 Millie Morales,KAYLA is Primary Nurse. nn1 03:27 Primary Nurse role handed off by Millie Morales RN cf2 03:27 Marge Jones,KAYLA is Primary Nurse. cf2 03:27 Patient visited by Marge Jones,KAYLA. cf2 03:27 Patient moved to 6 nn1 03:29 Patient visited by Shellie Sharpe RN. kas2 03:34 The patient / caregiver is instructed regarding the plan of care and ED course. mv5 03:34 Inserted saline lock: 20 gauge in left antecubital area and blood collected. The mv5 patient tolerated the procedure well. 03:45 Joaquin Pineda DO is Attending Physician. mm11 03:45 Patient visited by Joaquin Pineda DO. mm11 03:57 Patient visited by Joaquin Pineda DO. mm11 03:57 Millie Morales,KAYLA is Primary Nurse. mv5 04:03 Liver Profile Sent. mv5 04:03 Lipase Sent. mv5 04:03 HCG,Serum Qualitative Sent. mv5 04:04 CBC with Diff Sent. mv5 04:04 Basic Metabolic Profile Sent. mv5 04:04 Amylase Sent. mv5 04:18 Partial Thromboplastin Time Sent. mv5 04:18 Prothrombin Time Profile\\E\\INR Sent. mv5 04:18 Type & Screen Sent. mv5 04:26 Patient visited by Millie Morales RN. mv5 05:00 Patient visited by Millie Morales RN. mv5 05:17 [facility] Payment Agreement was scanned into [employer] and attached to record. pm4 05:38 Patient visited by Millie Morales RN. mv5 06:10 CT ABD & PELVIS: IV Contrast Only Returned. EDMS 06:20 Patient visited by Millie Morales RN. mv5 06:29 [facility] is Referral Physician. mm11 06:52 Discontinued intact, bleeding controlled, pressure dressing applied, No mv5 redness/swelling at site. No procedures done that require assistance. 09:48 T-Sheet-- Draft Copy was scanned into [employer] and attached to record. gb Administered Medications: 04:17 Drug: Dilaudid - HYDROmorphone 0.5 mg [hydromorphone 1 mg/mL injection syringe (0.5 mv5 mL)] Route: IVP; Site: left antecubital; 06:54 Follow up: Response: No Adverse Reaction mv5 04:18 Drug: NS 0.9% 1000 ml [sodium chloride 0.9 % intravenous solution] Route: IV; Rate: mv5 bolus; Site: left antecubital; 04:18 Drug: Ondansetron 4 mg [ondansetron HCl 2 mg/mL intravenous solution (2 mL)] Route: mv5 IVP; Site: left antecubital; 06:54 Follow up: Response: No Adverse Reaction mv5 05:15 Drug: GI Cocktail - (Alum-Mag Hydroxide-Simeth Suspension 225 mg-200 mg-25 mg/5 mL 30 mv5 ml, Lidocaine Liquid 2 % 10 ml, Hyoscyamine Liquid 10 ml) Route: PO; 06:54 Follow up: Response: No Adverse Reaction mv5 05:15 Drug: pantoprazole 40 mg [pantoprazole 40 mg intravenous solution] Route: IV; Rate: mv5 bolus; Site: left antecubital; 06:56 Follow up: IV Status: Completed infusion mv5 06:51 Drug: Sucralfate 1 grams [sucralfate 1 gram tablet (1 tabs)] Route: PO; mv5 06:53 Follow up: Response: No Adverse Reaction mv5 06:51 Drug: Famotidine 20 mg [famotidine 20 mg tablet (1 tabs)] Route: PO; mv5 06:53 Follow up: Response: No Adverse Reaction mv5 06:51 Drug: Dilaudid - HYDROmorphone 0.5 mg [hydromorphone 1 mg/mL injection syringe (0.5 mv5 mL)] Route: IVP; Site: left antecubital; 06:53 Follow up: Response: No Adverse Reaction mv5 Order Results: Lab Order: Amylase; SPEC10/11/16 04:12 Test: AMYLASE; Value: 50; Range: 25-115; Units: U/L; Status: F Lab Order: Basic Metabolic Profile; 10/11/16 04:12 Test: GLUCOSE, FASTING; Value: 96; Range: 70-105; Units: MG/DL; Status: F Test: BLOOD UREA NITROGEN; Value: 11; Range: 7-18; Units: MG/DL; Status: F Test: CREATININE FOR GFR; Value: 0.81; Range: 0.55-1.02; Units: MG/DL; Status: F Test: SODIUM LEVEL; Range: 136-145; Units: MEQ/L; Status: I Test: POTASSIUM SERUM; Range: 3.5-5.1; Units: MEQ/L; Status: I Test: CHLORIDE LEVEL; Range: 98-107; Units: MEQ/L; Status: I Test: CARBON DIOXIDE LEVEL; Range: 21-32; Units: MEQ/L; Status: I Test: ANION GAP; Range: 8-16; Units: MEQ/L; Status: I Test: CALCIUM LEVEL; Range: 8.5-10.1; Units: MG/DL; Status: I Test: GLOMERULAR FILTRATION RATE; Value: > 60.0; Range: >60; Status: F Test: SODIUM LEVEL; Value: 140; Range: 136-145; Units: MEQ/L; Status: F Test: POTASSIUM SERUM; Value: 3.6; Range: 3.5-5.1; Units: MEQ/L; Status: F Test: CHLORIDE LEVEL; Value: 106; Range: 98-107; Units: MEQ/L; Status: F Test: CARBON DIOXIDE LEVEL; Value: 26; Range: 21-32; Units: MEQ/L; Status: F Test: ANION GAP; Value: 8; Range: 8-16; Units: MEQ/L; Status: F Test: CALCIUM LEVEL; Value: 8.4; Range: 8.5-10.1; Abnormal: Below low normal; Units: MG/DL; Status: F Test Note: ; Units are mL/min/1.73 m2 Chronic Kidney Disease Staging per NKF: Stage I & II GFR >=60 Normal to Mildly Decreased Stage III GFR 30-59 Moderately Decreased Stage IV GFR 15-29 Severely Decreased Stage V GFR <15 Very Little GFR Left ESRD GFR <15 on INSTRUCTIONAL WRITER Lab Order: CBC with Diff; SPEC'M 10/11/16 03:38 Test: WHITE BLOOD COUNT; Value: 6.1; Range: 4.0-10.0; Units: K/mm3; Status: F Test: RED BLOOD COUNT; Value: 4.45; Range: 4.00-5.40; Units: M/mm3; Status: F Test: HEMOGLOBIN; Value: 12.9; Range: 12.0-16.0; Units: g/dl; Status: F Test: HEMATOCRIT; Value: 38.7; Range: 36.0-47.0; Units: %; Status: F Test: MEAN CORPUSCULAR VOLUME; Value: 87.0; Range: 80.0-96.0; Units: fl; Status: F Test: MEAN CORPUSCULAR HEMOGLOBIN; Value: 28.9; Range: 27.0-33.0; Units: pg; Status: F Test: MEAN CORPUSCULAR HGB CONC; Value: 33.3; Range: 32.0-36.5; Units: g/dl; Status: F Test: RED CELL DISTRIBUTION WIDTH; Value: 13.4; Range: 11.5-14.5; Units: %; Status: F Test: PLATELET COUNT, AUTOMATED; Value: 283; Range: 150-450; Units: k/mm3; Status: F Test: NEUTROPHILS %; Value: 46.8; Range: 36.0-66.0; Units: %; Status: F Test: LYMPH %; Value: 37.1; Range: 24.0-44.0; Units: %; Status: F Test: MONO %; Value: 4.4; Range: 0.0-5.0; Units: %; Status: F Test: EOS %; Value: 8.2; Range: 0.0-3.0; Abnormal: Above high normal; Units: %; Status: F Test: BASO %; Value: 0.5; Range: 0.0-1.0; Units: %; Status: F Test: LARGE UNSTAINED CELL %; Value: 3.0; Range: 0.0-4.0; Units: %; Status: F Test: NEUTROPHILS #; Value: 2.9; Range: 1.8-7.7; Units: K/mm3; Status: F Test: LYMPH #; Value: 2.3; Range: 1.5-4.5; Units: K/mm3; Status: F Test: MONO #; Value: 0.3; Range: 0.0-0.8; Units: K/mm3; Status: F Test: EOS #; Value: 0.5; Range: 0.0-0.50; Units: K/mm3; Status: F Test: BASO #; Value: 0.0; Range: 0.0-0.2; Units: K/mm3; Status: F Test: LARGE UNSTAINED CELL #; Value: 0.2; Range: 0.0-0.4; Units: K/mm3; Status: F Lab Order: HCG,Serum Qualitative; [facility]' 10/11/16 04:12 Test: HCG, SERUM QUALITATIVE; Value: NEGATIVE; Range: NEGATIVE; Status: F Lab Order: Lipase; [facility] 10/11/16 04:12 Test: LIPASE; Value: 186; Range: 73-393; Units: U/L; Status: F Lab Order: Liver Profile; [facility] 10/11/16 04:12 Test: AST/SGOT; Value: 15; Range: 15-37; Units: U/L; Status: F Test: ALT/SGPT; Value: 14; Range: 12-78; Units: U/L; Status: F Test: ALKALINE PHOSPHATASE; Value: 64; Range: 45-117; Units: U/L; Status: F Test: BILIRUBIN,TOTAL; Value: 0.1; Range: 0.2-1.0; Abnormal: Below low normal; Units: MG/DL; Status: F Test: BILIRUBIN,DIRECT; Value: < 0.1; Range: 0.0-0.2; Units: MG/DL; Status: F Test: TOTAL PROTEIN; Value: 7.1; Range: 6.4-8.2; Units: GM/DL; Status: F Test: ALBUMIN; Value: 3.4; Range: 3.2-5.2; Units: GM/DL; Status: F Test: ALBUMIN/GLOBULIN RATIO; Value: 0.92; Range: 1.00-1.93; Abnormal: Below low normal; Status: F Lab Order: Partial Thromboplastin Time; [facility] 04:12 Test: PARTIAL THROMBOPLASTIN TIME; Value: 31.5; Range: 26.6-37.1; Units: SECONDS; Status: F Lab Order: Prothrombin Time Profile\\E\\INR; 10/11/16 04:12 Test: PROTHROMBIN TIME; Value: 13.7; Range: 12.3-14.5; Units: SECONDS; Status: F Test: INR; Value: 1.04; Status: F Test Note: ; THERAPUTIC HUMAN INR VALUES INDICATIONS NORMAL RANGES PROPHYLAXIS/TREATMENT OF: VENOUS THROMBOSIS 2.0-3.0 PULMONARY EMBOLISM 2.0-3.0 PREVENTION OF SYSTEMIC EMBOLISM FROM: TISSUE HEART VALVES 2.0-3.0 ACUTE MYOCARDIAL INFARCTION 2.0-3.0 VALVULAR HEART DISEASE 2.0-3.0 ATRIAL FIBRILLATION 2.0-3.0 MECHANICAL VALVES(HIGH RISK) 2.5-3.5 RECURRENT MYOCARDIAL INFARCTION 2.5-3.5 Lab Order: Type & Screen; 10/11/16 04:12 Test: BLOOD TYPE; Value: O POS; Status: F Test: AB SCREEN (INDIRECT BRANDY)VIS; Value: NEGATIVE; Status: F Radiology Order: CT ABD & PELVIS: IV Contrast Only Test: CT ABD & PELVIS: IV Contrast Only REASON FOR EXAMINATION: Abdomen Pain; ; CLINICAL HISTORY: Abdominal pain.; TECHNIQUE: Multiple axial, sagittal and coronal CT images were obtained through the abdomen and pelvi; s after administration of intravenous contrast material.; COMMENTS:; The liver is mildly enlarged with decreased attenuation without mass or defect. There is no intra or; extrahepatic biliary ductal dilatation. The spleen is normal. The gallbladder is surgically absent. T; he pancreas is of normal contour and attenuation characteristics. There is no evidence of adrenal mas; s.; Both kidneys demonstrate prompt and equal nephrograms. The kidneys are normal in size, shape and conf; iguration. There is no evidence of renal or ureteral mass. No renal or ureteral calculi are identifie; d. There is no hydroureter or hydronephrosis.; No evidence for appendicitis. There is no bowel wall thickening. No evidence for small or large farhat; l obstruction. There is no evidence of abdominal ascites or lymphadenopathy. Both small bowels.; There is no evidence of intrinsic or extrinsic bladder mass. There is no pelvic ascites or lymphadeno; mame.; Fecal stasis.; Images of the lung bases show no evidence of pleural or parenchymal mass. There are no pleural effusi; ons.; The bony structures are free of lytic or blastic lesions. Multilevel degenerative changes are seen in; volving the thoracolumbar spine. Scattered calcifications are seen involving the aorta and major bran; ches compatible with atherosclerosis.; IMPRESSION:; Fluid filled small bowels. Ileus versus developing enteritis.; Fecal stasis.; Thank you for your kind referral of this patient.; ; Outcome: 06:29 Discharge ordered by Provider. mm11 06:52 Discharge Assessment: Patient awake, alert and oriented x 3. No cognitive and/or mv5 functional deficits noted. Patient verbalized understanding of disposition instructions. patient administered narcotics - yes. Pt provided with safe discharge. The following High Risk Discharge criteria are identified: None. Condition: stable. Discharge instructions given to patient, Demonstrated understanding of Pt was receptive of discharge instructions/ teaching. CT Study completed. Property sent home with patient. 07:03 Patient left the ED. mv5 Signatures: Dispatcher [employer] EDMS Maria Jurado, Reg Reg gb Joaquin Pineda DO DO mm11 Ariel Aguilar,RN RN nn1 Taylor Arroyo KimRN RN kas2 Marge Jones,RN RN cf2 Walt Piña, Reg Reg pm4 Millie MoralesRN RN mv5 Chart Complete MTDD
--- NOTE | 2016-10-13 08:04 | EDDOCDS ---
Physician Documentation [facility] Name: Alessia Huff Age: 31 yrs Sex: Female : 1985 Arrival Date: 10/11/2016 Time: 03:12 Bed 6 Private MD: Disposition: 10/11/16 06:29 Discharged to Home/Self Care. Impression: Abdominal and pelvic pain - suspect PUD. - Condition is Stable. - Discharge Instructions: Abdominal Pain, Adult, Peptic Ulcer Disease. - Prescriptions for Carafate 1 gram Oral Tablet - take 1 tablet by ORAL route 4 times per day take on an empty stomach, beginning on waking and last dose at bedtime; 100 tablet. Pepcid 20 mg Oral Tablet - take 1 tablet by ORAL route every 12 hours for 5 days; 10 tablet. Percocet 5- 325 mg Oral Tablet - take 1 tablet by ORAL route every 6 hours As needed MDD: 4 tabs; 20 tablet. - Medication Reconciliation, Local Pharmacy Hours form. - Follow up: PAMELA Ga; When: 2 - 3 days; Reason: Continuance of care. - Problem is an acute exacerbation. - Symptoms have improved. Historical: - Allergies: Morphine (Chest pain, SOB, itching); Suprax (Hives); - Home Meds: 1. estradiol 2 mg Oral tab 2 tab once daily 2. oxycodone 5 mg Oral tab 3 times per day 3. Xanax 0.5 mg Oral tab 1 tab as needed 4. Zanaflex 4 mg Oral tab 1 tab every 8 hours 5. Zoloft 100 mg Oral tab 2 tabs once daily 6. Nexium 40 mg Oral cpDR 1 cap 2 times per day - PMHx: Anxiety; Endometriosis; IBS; ulcers; - PSHx: laproscopy X 8; Hysterectomy; Hernia repair- Umbilical; Cholecystectomy; Atrial septal defect repair; cystocele rupture repair; Laparoscopy; - Social history: Smoking status: Smoking status: Patient states was never smoker of tobacco. No barriers to communication noted, The patient speaks fluent Tanzanian, Speaks appropriately for age. - Family history: No immediate family members are acutely ill. - : The pt / caregiver states he / she is not on anticoagulants. Home medication list is obtained from the patient. - Exposure Risk Screening:: None identified. 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 1 in. (154.94 cm); Pain 7/10; 03:28 Temp 98.9(O); kas2 03:33 BP 141 / 93 (auto/); mv5 03:34 Pulse Ox 96% ; mv5 04:03 BP 123 / 91 (auto/); mv5 04:03 Pulse Ox 98% ; mv5 04:33 BP 118 / 88 (auto/); mv5 04:33 Pulse Ox 96% ; mv5 05:03 BP 122 / 95 (auto/); mv5 05:03 Pulse 71; Resp 16; Pulse Ox 96% ; mv5 03:23 Body Mass Index 32.12 (77.11 kg, 154.94 cm) nn1 MDM: 03:58 NS 0.9% 1000 ml IV at bolus once ordered. mm11 03:58 Ondansetron 4 mg IVP once ordered. mm11 03:58 IV Saline Lock ordered. mm11 03:58 Undress patient appropriately for examination ordered. mm11 03:58 Dilaudid - HYDROmorphone 0.5 mg IVP once ordered. mm11 03:59 Amylase Ordered. EDMS 03:59 Basic Metabolic Profile Ordered. EDMS 03:59 CBC with Diff Ordered. EDMS 03:59 HCG,Serum Qualitative Ordered. EDMS 03:59 Lipase Ordered. EDMS 03:59 Liver Profile Ordered. EDMS 03:59 Partial Thromboplastin Time Ordered. EDMS 03:59 Prothrombin Time Profile\E\INR Ordered. EDMS 04:00 Type & Screen Ordered. EDMS 04:00 NOTHING BY MOUTH+DIET ordered. EDMS 04:54 Financial registration complete. pm4 05:03 GI Cocktail - (Alum-Mag Hydroxide-Simeth 30 ml, Lidocaine 10 ml, Hyoscyamine 10 ml) PO mm11 once; Pre-mixed 50mL unit dose ordered. 05:03 pantoprazole 40 mg IV at bolus once ordered. mm11 05:03 Basic Metabolic Profile Reviewed. mm11 05:03 CBC with Diff Reviewed. mm11 05:03 Liver Profile Reviewed. mm11 05:03 Amylase Reviewed. mm11 05:03 HCG,Serum Qualitative Reviewed. mm11 05:03 Lipase Reviewed. mm11 05:03 Partial Thromboplastin Time Reviewed. mm11 05:03 Prothrombin Time Profile\E\INR Reviewed. mm11 05:03 Type & Screen Reviewed. mm11 05:05 CT ABD & PELVIS: IV Contrast Only Ordered. EDMS 05:17 [facility] [place] was scanned into [employer] and attached to record. pm4 06:29 Sucralfate 1 grams PO once ordered. mm11 06:29 Famotidine 20 mg PO once ordered. mm11 06:29 Dilaudid - HYDROmorphone 0.5 mg IVP once ordered. mm11 06:35 CT ABD & PELVIS: IV Contrast Only Reviewed. mm11 09:48 T-Sheet-- Draft Copy was scanned into [employer] and attached to record. gb Administered Medications: 04:17 Drug: Dilaudid - HYDROmorphone 0.5 mg [hydromorphone 1 mg/mL injection syringe (0.5 mv5 mL)] Route: IVP; Site: left antecubital; 06:54 Follow up: Response: No Adverse Reaction mv5 04:18 Drug: NS 0.9% 1000 ml [sodium chloride 0.9 % intravenous solution] Route: IV; Rate: mv5 bolus; Site: left antecubital; 04:18 Drug: Ondansetron 4 mg [ondansetron HCl 2 mg/mL intravenous solution (2 mL)] Route: mv5 IVP; Site: left antecubital; 06:54 Follow up: Response: No Adverse Reaction mv5 05:15 Drug: GI Cocktail - (Alum-Mag Hydroxide-Simeth Suspension 225 mg-200 mg-25 mg/5 mL 30 mv5 ml, Lidocaine Liquid 2 % 10 ml, Hyoscyamine Liquid 10 ml) Route: PO; 06:54 Follow up: Response: No Adverse Reaction mv5 05:15 Drug: pantoprazole 40 mg [pantoprazole 40 mg intravenous solution] Route: IV; Rate: mv5 bolus; Site: left antecubital; 06:56 Follow up: IV Status: Completed infusion mv5 06:51 Drug: Sucralfate 1 grams [sucralfate 1 gram tablet (1 tabs)] Route: PO; mv5 06:53 Follow up: Response: No Adverse Reaction mv5 06:51 Drug: Famotidine 20 mg [famotidine 20 mg tablet (1 tabs)] Route: PO; mv5 06:53 Follow up: Response: No Adverse Reaction mv5 06:51 Drug: Dilaudid - HYDROmorphone 0.5 mg [hydromorphone 1 mg/mL injection syringe (0.5 mv5 mL)] Route: IVP; Site: left antecubital; 06:53 Follow up: Response: No Adverse Reaction mv5 Signatures: Dispatcher [employer] EDMS Maria Jurado, Reg Reg gb Joaquin Pineda, DO DO mm11 Ariel Aguilar,RN RN nn1 Walt Piña, Reg Reg pm4 Millie Morales,KAYLA RN mv5 The chart was reviewed and I authenticate all verbal orders and agree with the evaluation and treatment provided.Attachments: 05:17 [facility] Payment Agreement pm4 09:48 T-Sheet-- Draft Copy gb Chart Complete MTDD
--- NOTE | 2016-10-13 08:04 | EDDOCDS ---
Physician Documentation [facility] Name: Alessia Huff Age: 31 yrs Sex: Female : 1985 Arrival Date: 10/11/2016 Time: 03:12 Bed 6 Private MD: Disposition: 10/11/16 06:29 Discharged to Home/Self Care. Impression: Abdominal and pelvic pain - suspect PUD. - Condition is Stable. - Discharge Instructions: Abdominal Pain, Adult, Peptic Ulcer Disease. - Prescriptions for Carafate 1 gram Oral Tablet - take 1 tablet by ORAL route 4 times per day take on an empty stomach, beginning on waking and last dose at bedtime; 100 tablet. Pepcid 20 mg Oral Tablet - take 1 tablet by ORAL route every 12 hours for 5 days; 10 tablet. Percocet 5- 325 mg Oral Tablet - take 1 tablet by ORAL route every 6 hours As needed MDD: 4 tabs; 20 tablet. - Medication Reconciliation, Local Pharmacy Hours form. - Follow up: PAMELA Ga; When: 2 - 3 days; Reason: Continuance of care. - Problem is an acute exacerbation. - Symptoms have improved. Historical: - Allergies: Morphine (Chest pain, SOB, itching); Suprax (Hives); - Home Meds: 1. estradiol 2 mg Oral tab 2 tab once daily 2. oxycodone 5 mg Oral tab 3 times per day 3. Xanax 0.5 mg Oral tab 1 tab as needed 4. Zanaflex 4 mg Oral tab 1 tab every 8 hours 5. Zoloft 100 mg Oral tab 2 tabs once daily 6. Nexium 40 mg Oral cpDR 1 cap 2 times per day - PMHx: Anxiety; Endometriosis; IBS; ulcers; - PSHx: laproscopy X 8; Hysterectomy; Hernia repair- Umbilical; Cholecystectomy; Atrial septal defect repair; cystocele rupture repair; Laparoscopy; - Social history: Smoking status: Smoking status: Patient states was never smoker of tobacco. No barriers to communication noted, The patient speaks fluent [place], Speaks appropriately for age. - Family history: No immediate family members are acutely ill. - : The pt / caregiver states he / she is not on anticoagulants. Home medication list is obtained from the patient. - Exposure Risk Screening:: None identified. 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 1 in. (154.94 cm); Pain 7/10; 03:28 Temp 98.9(O); kas2 03:33 BP 141 / 93 (auto/); mv5 03:34 Pulse Ox 96% ; mv5 04:03 BP 123 / 91 (auto/); mv5 04:03 Pulse Ox 98% ; mv5 04:33 BP 118 / 88 (auto/); mv5 04:33 Pulse Ox 96% ; mv5 05:03 BP 122 / 95 (auto/); mv5 05:03 Pulse 71; Resp 16; Pulse Ox 96% ; mv5 03:23 Body Mass Index 32.12 (77.11 kg, 154.94 cm) nn1 MDM: 03:58 NS 0.9% 1000 ml IV at bolus once ordered. mm11 03:58 Ondansetron 4 mg IVP once ordered. mm11 03:58 IV Saline Lock ordered. mm11 03:58 Undress patient appropriately for examination ordered. mm11 03:58 Dilaudid - HYDROmorphone 0.5 mg IVP once ordered. mm11 03:59 Amylase Ordered. EDMS 03:59 Basic Metabolic Profile Ordered. EDMS 03:59 CBC with Diff Ordered. EDMS 03:59 HCG,Serum Qualitative Ordered. EDMS 03:59 Lipase Ordered. EDMS 03:59 Liver Profile Ordered. EDMS 03:59 Partial Thromboplastin Time Ordered. EDMS 03:59 Prothrombin Time Profile\E\INR Ordered. EDMS 04:00 Type & Screen Ordered. EDMS 04:00 NOTHING BY MOUTH+DIET ordered. EDMS 04:54 Financial registration complete. pm4 05:03 GI Cocktail - (Alum-Mag Hydroxide-Simeth 30 ml, Lidocaine 10 ml, Hyoscyamine 10 ml) PO mm11 once; Pre-mixed 50mL unit dose ordered. 05:03 pantoprazole 40 mg IV at bolus once ordered. mm11 05:03 Basic Metabolic Profile Reviewed. mm11 05:03 CBC with Diff Reviewed. mm11 05:03 Liver Profile Reviewed. mm11 05:03 Amylase Reviewed. mm11 05:03 HCG,Serum Qualitative Reviewed. mm11 05:03 Lipase Reviewed. mm11 05:03 Partial Thromboplastin Time Reviewed. mm11 05:03 Prothrombin Time Profile\E\INR Reviewed. mm11 05:03 Type & Screen Reviewed. mm11 05:05 CT ABD & PELVIS: IV Contrast Only Ordered. EDMS 05:17 [facility] [place] [place] Payment Agreement was scanned into [employer] and attached to record. pm4 06:29 Sucralfate 1 grams PO once ordered. mm11 06:29 Famotidine 20 mg PO once ordered. mm11 06:29 Dilaudid - HYDROmorphone 0.5 mg IVP once ordered. mm11 06:35 CT ABD & PELVIS: IV Contrast Only Reviewed. mm11 09:48 T-Sheet-- Draft Copy was scanned into [employer] and attached to record. gb Administered Medications: 04:17 Drug: Dilaudid - HYDROmorphone 0.5 mg [hydromorphone 1 mg/mL injection syringe (0.5 mv5 mL)] Route: IVP; Site: left antecubital; 06:54 Follow up: Response: No Adverse Reaction mv5 04:18 Drug: NS 0.9% 1000 ml [sodium chloride 0.9 % intravenous solution] Route: IV; Rate: mv5 bolus; Site: left antecubital; 04:18 Drug: Ondansetron 4 mg [ondansetron HCl 2 mg/mL intravenous solution (2 mL)] Route: mv5 IVP; Site: left antecubital; 06:54 Follow up: Response: No Adverse Reaction mv5 05:15 Drug: GI Cocktail - (Alum-Mag Hydroxide-Simeth Suspension 225 mg-200 mg-25 mg/5 mL 30 mv5 ml, Lidocaine Liquid 2 % 10 ml, Hyoscyamine Liquid 10 ml) Route: PO; 06:54 Follow up: Response: No Adverse Reaction mv5 05:15 Drug: pantoprazole 40 mg [pantoprazole 40 mg intravenous solution] Route: IV; Rate: mv5 bolus; Site: left antecubital; 06:56 Follow up: IV Status: Completed infusion mv5 06:51 Drug: Sucralfate 1 grams [sucralfate 1 gram tablet (1 tabs)] Route: PO; mv5 06:53 Follow up: Response: No Adverse Reaction mv5 06:51 Drug: Famotidine 20 mg [famotidine 20 mg tablet (1 tabs)] Route: PO; mv5 06:53 Follow up: Response: No Adverse Reaction mv5 06:51 Drug: Dilaudid - HYDROmorphone 0.5 mg [hydromorphone 1 mg/mL injection syringe (0.5 mv5 mL)] Route: IVP; Site: left antecubital; 06:53 Follow up: Response: No Adverse Reaction mv5 Signatures: Dispatcher [employer] EDMS Maria Jurado, Reg Reg gb Joaquin Pineda, DO DO mm11 Ariel Aguilar,RN RN nn1 Walt Piña, Reg Reg pm4 Millie Morales,KAYLA RN mv5 The chart was reviewed and I authenticate all verbal orders and agree with the evaluation and treatment provided.Attachments: 05:17 [facility] Payment Agreement pm4 09:48 T-Sheet-- Draft Copy gb Chart Complete MTDD
--- NOTE | 2016-10-17 13:48 | EDDOCDS ---
Physician Documentation [facility] Name: Alessia Huff Age: 31 yrs Sex: Female : 1985 Arrival Date: 10/11/2016 Time: 03:12 Bed 6 Private MD: Disposition: 10/11/16 06:29 Discharged to Home/Self Care. Impression: Abdominal and pelvic pain - suspect PUD. - Condition is Stable. - Discharge Instructions: Abdominal Pain, Adult, Peptic Ulcer Disease. - Prescriptions for Carafate 1 gram Oral Tablet - take 1 tablet by ORAL route 4 times per day take on an empty stomach, beginning on waking and last dose at bedtime; 100 tablet. Pepcid 20 mg Oral Tablet - take 1 tablet by ORAL route every 12 hours for 5 days; 10 tablet. Percocet 5- 325 mg Oral Tablet - take 1 tablet by ORAL route every 6 hours As needed MDD: 4 tabs; 20 tablet. - Medication Reconciliation, Local Pharmacy Hours form. - Follow up: PAMELA Ga; When: 2 - 3 days; Reason: Continuance of care. - Problem is an acute exacerbation. - Symptoms have improved. Historical: - Allergies: Morphine (Chest pain, SOB, itching); Suprax (Hives); - Home Meds: 1. estradiol 2 mg Oral tab 2 tab once daily 2. oxycodone 5 mg Oral tab 3 times per day 3. Xanax 0.5 mg Oral tab 1 tab as needed 4. Zanaflex 4 mg Oral tab 1 tab every 8 hours 5. Zoloft 100 mg Oral tab 2 tabs once daily 6. Nexium 40 mg Oral cpDR 1 cap 2 times per day - PMHx: Anxiety; Endometriosis; IBS; ulcers; - PSHx: laproscopy X 8; Hysterectomy; Hernia repair- Umbilical; Cholecystectomy; Atrial septal defect repair; cystocele rupture repair; Laparoscopy; - Social history: Smoking status: Smoking status: Patient states was never smoker of tobacco. No barriers to communication noted, The patient speaks fluent [place], Speaks appropriately for age. - Family history: No immediate family members are acutely ill. - : The pt / caregiver states he / she is not on anticoagulants. Home medication list is obtained from the patient. - Exposure Risk Screening:: None identified. 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 1 in. (154.94 cm); Pain 7/10; 03:28 Temp 98.9(O); kas2 03:33 BP 141 / 93 (auto/); mv5 03:34 Pulse Ox 96% ; mv5 04:03 BP 123 / 91 (auto/); mv5 04:03 Pulse Ox 98% ; mv5 04:33 BP 118 / 88 (auto/); mv5 04:33 Pulse Ox 96% ; mv5 05:03 BP 122 / 95 (auto/); mv5 05:03 Pulse 71; Resp 16; Pulse Ox 96% ; mv5 03:23 Body Mass Index 32.12 (77.11 kg, 154.94 cm) nn1 MDM: 03:58 NS 0.9% 1000 ml IV at bolus once ordered. mm11 03:58 Ondansetron 4 mg IVP once ordered. mm11 03:58 IV Saline Lock ordered. mm11 03:58 Undress patient appropriately for examination ordered. mm11 03:58 Dilaudid - HYDROmorphone 0.5 mg IVP once ordered. mm11 03:59 Amylase Ordered. EDMS 03:59 Basic Metabolic Profile Ordered. EDMS 03:59 CBC with Diff Ordered. EDMS 03:59 HCG,Serum Qualitative Ordered. EDMS 03:59 Lipase Ordered. EDMS 03:59 Liver Profile Ordered. EDMS 03:59 Partial Thromboplastin Time Ordered. EDMS 03:59 Prothrombin Time Profile\E\INR Ordered. EDMS 04:00 Type & Screen Ordered. EDMS 04:00 NOTHING BY MOUTH+DIET ordered. EDMS 04:54 Financial registration complete. pm4 05:03 GI Cocktail - (Alum-Mag Hydroxide-Simeth 30 ml, Lidocaine 10 ml, Hyoscyamine 10 ml) PO mm11 once; Pre-mixed 50mL unit dose ordered. 05:03 pantoprazole 40 mg IV at bolus once ordered. mm11 05:03 Basic Metabolic Profile Reviewed. mm11 05:03 CBC with Diff Reviewed. mm11 05:03 Liver Profile Reviewed. mm11 05:03 Amylase Reviewed. mm11 05:03 HCG,Serum Qualitative Reviewed. mm11 05:03 Lipase Reviewed. mm11 05:03 Partial Thromboplastin Time Reviewed. mm11 05:03 Prothrombin Time Profile\E\INR Reviewed. mm11 05:03 Type & Screen Reviewed. mm11 05:05 CT ABD & PELVIS: IV Contrast Only Ordered. EDMS 05:17 [facility] [place] Payment Agreement was scanned into [employer] and attached to record. pm4 06:29 Sucralfate 1 grams PO once ordered. mm11 06:29 Famotidine 20 mg PO once ordered. mm11 06:29 Dilaudid - HYDROmorphone 0.5 mg IVP once ordered. mm11 06:35 CT ABD & PELVIS: IV Contrast Only Reviewed. mm11 09:48 T-Sheet-- Draft Copy was scanned into [employer] and attached to record. gb Administered Medications: 04:17 Drug: Dilaudid - HYDROmorphone 0.5 mg [hydromorphone 1 mg/mL injection syringe (0.5 mv5 mL)] Route: IVP; Site: left antecubital; 06:54 Follow up: Response: No Adverse Reaction mv5 04:18 Drug: NS 0.9% 1000 ml [sodium chloride 0.9 % intravenous solution] Route: IV; Rate: mv5 bolus; Site: left antecubital; 04:18 Drug: Ondansetron 4 mg [ondansetron HCl 2 mg/mL intravenous solution (2 mL)] Route: mv5 IVP; Site: left antecubital; 06:54 Follow up: Response: No Adverse Reaction mv5 05:15 Drug: GI Cocktail - (Alum-Mag Hydroxide-Simeth Suspension 225 mg-200 mg-25 mg/5 mL 30 mv5 ml, Lidocaine Liquid 2 % 10 ml, Hyoscyamine Liquid 10 ml) Route: PO; 06:54 Follow up: Response: No Adverse Reaction mv5 05:15 Drug: pantoprazole 40 mg [pantoprazole 40 mg intravenous solution] Route: IV; Rate: mv5 bolus; Site: left antecubital; 06:56 Follow up: IV Status: Completed infusion mv5 06:51 Drug: Sucralfate 1 grams [sucralfate 1 gram tablet (1 tabs)] Route: PO; mv5 06:53 Follow up: Response: No Adverse Reaction mv5 06:51 Drug: Famotidine 20 mg [famotidine 20 mg tablet (1 tabs)] Route: PO; mv5 06:53 Follow up: Response: No Adverse Reaction mv5 06:51 Drug: Dilaudid - HYDROmorphone 0.5 mg [hydromorphone 1 mg/mL injection syringe (0.5 mv5 mL)] Route: IVP; Site: left antecubital; 06:53 Follow up: Response: No Adverse Reaction mv5 Signatures: Dispatcher [employer] EDMS Maria Jurado, Reg Reg gb Joaquin Pineda, DO DO mm11 Ariel Aguilar,RN RN nn1 Walt Piña, Reg Reg pm4 Millie Morales RN RN mv5 The chart was reviewed and I authenticate all verbal orders and agree with the evaluation and treatment provided.Attachments: 05:17 [facility] Payment Agreement pm4 Chart Complete MTDD
--- NOTE | 2016-10-17 13:48 | EDDOCDS ---
Physician Documentation [facility] Name: Alessia Huff Age: 31 yrs Sex: Female : 1985 Arrival Date: 10/11/2016 Time: 03:12 Bed 6 Private MD: Disposition: 10/11/16 06:29 Discharged to Home/Self Care. Impression: Abdominal and pelvic pain - suspect PUD. - Condition is Stable. - Discharge Instructions: Abdominal Pain, Adult, Peptic Ulcer Disease. - Prescriptions for Carafate 1 gram Oral Tablet - take 1 tablet by ORAL route 4 times per day take on an empty stomach, beginning on waking and last dose at bedtime; 100 tablet. Pepcid 20 mg Oral Tablet - take 1 tablet by ORAL route every 12 hours for 5 days; 10 tablet. Percocet 5- 325 mg Oral Tablet - take 1 tablet by ORAL route every 6 hours As needed MDD: 4 tabs; 20 tablet. - Medication Reconciliation, Local Pharmacy Hours form. - Follow up: PAMELA Ga; When: 2 - 3 days; Reason: Continuance of care. - Problem is an acute exacerbation. - Symptoms have improved. Historical: - Allergies: Morphine (Chest pain, SOB, itching); Suprax (Hives); - Home Meds: 1. estradiol 2 mg Oral tab 2 tab once daily 2. oxycodone 5 mg Oral tab 3 times per day 3. Xanax 0.5 mg Oral tab 1 tab as needed 4. Zanaflex 4 mg Oral tab 1 tab every 8 hours 5. Zoloft 100 mg Oral tab 2 tabs once daily 6. Nexium 40 mg Oral cpDR 1 cap 2 times per day - PMHx: Anxiety; Endometriosis; IBS; ulcers; - PSHx: laproscopy X 8; Hysterectomy; Hernia repair- Umbilical; Cholecystectomy; Atrial septal defect repair; cystocele rupture repair; Laparoscopy; - Social history: Smoking status: Smoking status: Patient states was never smoker of tobacco. No barriers to communication noted, The patient speaks fluent Scottish, Speaks appropriately for age. - Family history: No immediate family members are acutely ill. - : The pt / caregiver states he / she is not on anticoagulants. Home medication list is obtained from the patient. - Exposure Risk Screening:: None identified. 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 1 in. (154.94 cm); Pain 7/10; 03:28 Temp 98.9(O); kas2 03:33 BP 141 / 93 (auto/); mv5 03:34 Pulse Ox 96% ; mv5 04:03 BP 123 / 91 (auto/); mv5 04:03 Pulse Ox 98% ; mv5 04:33 BP 118 / 88 (auto/); mv5 04:33 Pulse Ox 96% ; mv5 05:03 BP 122 / 95 (auto/); mv5 05:03 Pulse 71; Resp 16; Pulse Ox 96% ; mv5 03:23 Body Mass Index 32.12 (77.11 kg, 154.94 cm) nn1 MDM: 03:58 NS 0.9% 1000 ml IV at bolus once ordered. mm11 03:58 Ondansetron 4 mg IVP once ordered. mm11 03:58 IV Saline Lock ordered. mm11 03:58 Undress patient appropriately for examination ordered. mm11 03:58 Dilaudid - HYDROmorphone 0.5 mg IVP once ordered. mm11 03:59 Amylase Ordered. EDMS 03:59 Basic Metabolic Profile Ordered. EDMS 03:59 CBC with Diff Ordered. EDMS 03:59 HCG,Serum Qualitative Ordered. EDMS 03:59 Lipase Ordered. EDMS 03:59 Liver Profile Ordered. EDMS 03:59 Partial Thromboplastin Time Ordered. EDMS 03:59 Prothrombin Time Profile\E\INR Ordered. EDMS 04:00 Type & Screen Ordered. EDMS 04:00 NOTHING BY MOUTH+DIET ordered. EDMS 04:54 Financial registration complete. pm4 05:03 GI Cocktail - (Alum-Mag Hydroxide-Simeth 30 ml, Lidocaine 10 ml, Hyoscyamine 10 ml) PO mm11 once; Pre-mixed 50mL unit dose ordered. 05:03 pantoprazole 40 mg IV at bolus once ordered. mm11 05:03 Basic Metabolic Profile Reviewed. mm11 05:03 CBC with Diff Reviewed. mm11 05:03 Liver Profile Reviewed. mm11 05:03 Amylase Reviewed. mm11 05:03 HCG,Serum Qualitative Reviewed. mm11 05:03 Lipase Reviewed. mm11 05:03 Partial Thromboplastin Time Reviewed. mm11 05:03 Prothrombin Time Profile\E\INR Reviewed. mm11 05:03 Type & Screen Reviewed. mm11 05:05 CT ABD & PELVIS: IV Contrast Only Ordered. EDMS 05:17 [facility] [place] Payment Agreement was scanned into [employer] and attached to record. pm4 06:29 Sucralfate 1 grams PO once ordered. mm11 06:29 Famotidine 20 mg PO once ordered. mm11 06:29 Dilaudid - HYDROmorphone 0.5 mg IVP once ordered. mm11 06:35 CT ABD & PELVIS: IV Contrast Only Reviewed. mm11 09:48 T-Sheet-- Draft Copy was scanned into [employer] and attached to record. gb Administered Medications: 04:17 Drug: Dilaudid - HYDROmorphone 0.5 mg [hydromorphone 1 mg/mL injection syringe (0.5 mv5 mL)] Route: IVP; Site: left antecubital; 06:54 Follow up: Response: No Adverse Reaction mv5 04:18 Drug: NS 0.9% 1000 ml [sodium chloride 0.9 % intravenous solution] Route: IV; Rate: mv5 bolus; Site: left antecubital; 04:18 Drug: Ondansetron 4 mg [ondansetron HCl 2 mg/mL intravenous solution (2 mL)] Route: mv5 IVP; Site: left antecubital; 06:54 Follow up: Response: No Adverse Reaction mv5 05:15 Drug: GI Cocktail - (Alum-Mag Hydroxide-Simeth Suspension 225 mg-200 mg-25 mg/5 mL 30 mv5 ml, Lidocaine Liquid 2 % 10 ml, Hyoscyamine Liquid 10 ml) Route: PO; 06:54 Follow up: Response: No Adverse Reaction mv5 05:15 Drug: pantoprazole 40 mg [pantoprazole 40 mg intravenous solution] Route: IV; Rate: mv5 bolus; Site: left antecubital; 06:56 Follow up: IV Status: Completed infusion mv5 06:51 Drug: Sucralfate 1 grams [sucralfate 1 gram tablet (1 tabs)] Route: PO; mv5 06:53 Follow up: Response: No Adverse Reaction mv5 06:51 Drug: Famotidine 20 mg [famotidine 20 mg tablet (1 tabs)] Route: PO; mv5 06:53 Follow up: Response: No Adverse Reaction mv5 06:51 Drug: Dilaudid - HYDROmorphone 0.5 mg [hydromorphone 1 mg/mL injection syringe (0.5 mv5 mL)] Route: IVP; Site: left antecubital; 06:53 Follow up: Response: No Adverse Reaction mv5 Signatures: Dispatcher [employer] EDMS Maria Jurado, Reg Reg gb Joaquin Pineda, DO DO mm11 Ariel Aguilar,RN RN nn1 Walt Piña, Reg Reg pm4 Millie Morales RN RN mv5 The chart was reviewed and I authenticate all verbal orders and agree with the evaluation and treatment provided.Attachments: 05:17 [facility] Payment Agreement pm4 Chart Complete MTDD
--- NOTE | 2016-10-17 13:48 | EDDOCDS ---
Nurse's Notes [facility] Name: Alessia Huff Age: 31 yrs Sex: Female : 1985 Arrival Date: 10/11/2016 Time: 03:12 Bed 6 Private MD: Diagnosis: Abdominal and pelvic pain-suspect PUD Presentation: 10/11 03:18 Presenting complaint: Patient states: for the past 3 days she has been having nn1 increasing abdominal pain. Seen by PCP, prescribed nexium. Patient reports vomiting with blood. Risk factors: the patient reports no vaginal bleeding. Adult Sepsis Screening: The patient does not have new or worsening altered mentation. Patient's respiratory rate is less than 22. Systolic blood pressure is greater than 100. Patient has a qSOFA score of 0- Negative Sepsis Screen. Suicide/Homicide risk assessment- the patient denies having any suicidal and/or homicidal ideations and does not present with any other emotional, behavioral or mental health complaints. Status: The patient is a dependent. Transition of care: patient was not received from another setting of care. 03:18 Acuity: LORENZO Level 3 nn1 03:18 Method Of Arrival: Walkin/Carried/Asstd nn1 Triage Assessment: 03:24 General: Appears uncomfortable, Behavior is appropriate for age, cooperative. Pain: nn1 Location: epigastric area Pain currently is 7 out of 10 on a pain scale. Quality of pain is described as "Tearing throbbing pain" Pain began 2 weeks ago increasing steadily. HIV screening NA for this visit Offered previously. GI: Abdomen is non- distended Bowel sounds present X 4 quads. Abd is tender to palpation in epigastric area, right upper quadrant and left upper quadrant Reports nausea, vomiting, Vomiting coffee grounds x 2 weeks. More frequent last couple of days. Derm: Skin is pink, warm & dry. CLINIC LPN: 03:23 LMP N/A - Hysterectomy nn1 Historical: - Allergies: Morphine (Chest pain, SOB, itching); Suprax (Hives); - Home Meds: 1. estradiol 2 mg Oral tab 2 tab once daily 2. oxycodone 5 mg Oral tab 3 times per day 3. Xanax 0.5 mg Oral tab 1 tab as needed 4. Zanaflex 4 mg Oral tab 1 tab every 8 hours 5. Zoloft 100 mg Oral tab 2 tabs once daily 6. Nexium 40 mg Oral cpDR 1 cap 2 times per day - PMHx: Anxiety; Endometriosis; IBS; ulcers; - PSHx: laproscopy X 8; Hysterectomy; Hernia repair- Umbilical; Cholecystectomy; Atrial septal defect repair; cystocele rupture repair; Laparoscopy; - Social history: Smoking status: Smoking status: Patient states was never smoker of tobacco. No barriers to communication noted, The patient speaks fluent Swedish, Speaks appropriately for age. - Family history: No immediate family members are acutely ill. - : The pt / caregiver states he / she is not on anticoagulants. Home medication list is obtained from the patient. - Exposure Risk Screening:: None identified. Screenin:34 Screening information is obtained from the patient. Fall risk: No risks identified. mv5 Assistance ADL's: requires no assistance with activities of daily living. Abuse/DV Screen: The patient / caregiver reports he/she is: not in a situation that causes fear, pain or injury. Nutritional screening: No deficits noted. Advance Directives: There is no active DNR order. home support is adequate. Assessment: 03:57 General: Appears uncomfortable, well nourished, well groomed, Behavior is cooperative, mv5 pleasant. Pain: Location: right upper quadrant and left upper quadrant Pain currently is 7 out of 10 on a pain scale. Neurological: Level of Consciousness is awake, alert, Oriented to person, place, time. Cardiovascular: Capillary refill < 3 seconds Heart tones S1 S2 present. Respiratory: Airway is patent Respiratory effort is even, unlabored, Respiratory pattern is regular, symmetrical. GI: Abdomen is flat, Bowel sounds present X 4 quads. Abd is tender to palpation in right upper quadrant and left upper quadrant. Derm: Skin is pink, warm & dry. 04:38 General: Appears in no apparent distress. Respiratory: Airway is patent Respiratory mv5 effort is even, unlabored, Respiratory pattern is regular, symmetrical. Derm: Skin is pink, warm & dry. 04:52 Reassessment: Patient states symptoms have not improved. aware.. mv5 05:36 General: Appears uncomfortable, Behavior is cooperative, pleasant. Respiratory: Airway mv5 is patent Respiratory effort is even, unlabored, Respiratory pattern is regular, symmetrical. Derm: Skin is pink, warm & dry. Vital Signs: 03:23 BP 142 / 90; Pulse 98; Resp 18; Pulse Ox 98% on R/A; Weight 77.11 kg; Height 5 ft. 1 nn1 in. (154.94 cm); Pain 7/10; 03:28 Temp 98.9(O); kas2 03:33 BP 141 / 93 (auto/); mv5 03:34 Pulse Ox 96% ; mv5 04:03 BP 123 / 91 (auto/); mv5 04:03 Pulse Ox 98% ; mv5 04:33 BP 118 / 88 (auto/); mv5 04:33 Pulse Ox 96% ; mv5 05:03 BP 122 / 95 (auto/); mv5 05:03 Pulse 71; Resp 16; Pulse Ox 96% ; mv5 03:23 Body Mass Index 32.12 (77.11 kg, 154.94 cm) nn1 Vitals: 03:23 Log In Time: October 11, 2016 at 03:12. nn1 ED Course: 03:13 Patient visited by Taylor Arroyo. gjb 03:13 Patient moved to Waiting gjb 03:19 Triage Initiated nn1 03:27 Millie Morales,KAYLA is Primary Nurse. nn1 03:27 Primary Nurse role handed off by Millie Morales RN cf2 03:27 Marge Jones,KAYLA is Primary Nurse. cf2 03:27 Patient visited by Marge Jones,KAYLA. cf2 03:27 Patient moved to 6 nn1 03:29 Patient visited by Shellie Sharpe RN. kas2 03:34 The patient / caregiver is instructed regarding the plan of care and ED course. mv5 03:34 Inserted saline lock: 20 gauge in left antecubital area and blood collected. The mv5 patient tolerated the procedure well. 03:45 Joaquin Pineda DO is Attending Physician. mm11 03:45 Patient visited by Joaquin Pineda DO. mm11 03:57 Patient visited by Joaquin Pineda DO. mm11 03:57 Millie Morales,KAYLA is Primary Nurse. mv5 04:03 Liver Profile Sent. mv5 04:03 Lipase Sent. mv5 04:03 HCG,Serum Qualitative Sent. mv5 04:04 CBC with Diff Sent. mv5 04:04 Basic Metabolic Profile Sent. mv5 04:04 Amylase Sent. mv5 04:18 Partial Thromboplastin Time Sent. mv5 04:18 Prothrombin Time Profile\\E\\INR Sent. mv5 04:18 Type & Screen Sent. mv5 04:26 Patient visited by Millie Morales RN. mv5 05:00 Patient visited by Millie Morales RN. mv5 05:17 [facility] Payment Agreement was scanned into [employer] and attached to record. pm4 05:38 Patient visited by Millie Morales RN. mv5 06:10 CT ABD & PELVIS: IV Contrast Only Returned. EDMS 06:20 Patient visited by Millie Morales RN. mv5 06:29 [facility] [place]erral Physician. mm11 06:52 Discontinued intact, bleeding controlled, pressure dressing applied, No mv5 redness/swelling at site. No procedures done that require assistance. 09:48 T-Sheet-- Draft Copy was scanned into [employer] and attached to record. gb Administered Medications: 04:17 Drug: Dilaudid - HYDROmorphone 0.5 mg [hydromorphone 1 mg/mL injection syringe (0.5 mv5 mL)] Route: IVP; Site: left antecubital; 06:54 Follow up: Response: No Adverse Reaction mv5 04:18 Drug: NS 0.9% 1000 ml [sodium chloride 0.9 % intravenous solution] Route: IV; Rate: mv5 bolus; Site: left antecubital; 04:18 Drug: Ondansetron 4 mg [ondansetron HCl 2 mg/mL intravenous solution (2 mL)] Route: mv5 IVP; Site: left antecubital; 06:54 Follow up: Response: No Adverse Reaction mv5 05:15 Drug: GI Cocktail - (Alum-Mag Hydroxide-Simeth Suspension 225 mg-200 mg-25 mg/5 mL 30 mv5 ml, Lidocaine Liquid 2 % 10 ml, Hyoscyamine Liquid 10 ml) Route: PO; 06:54 Follow up: Response: No Adverse Reaction mv5 05:15 Drug: pantoprazole 40 mg [pantoprazole 40 mg intravenous solution] Route: IV; Rate: mv5 bolus; Site: left antecubital; 06:56 Follow up: IV Status: Completed infusion mv5 06:51 Drug: Sucralfate 1 grams [sucralfate 1 gram tablet (1 tabs)] Route: PO; mv5 06:53 Follow up: Response: No Adverse Reaction mv5 06:51 Drug: Famotidine 20 mg [famotidine 20 mg tablet (1 tabs)] Route: PO; mv5 06:53 Follow up: Response: No Adverse Reaction mv5 06:51 Drug: Dilaudid - HYDROmorphone 0.5 mg [hydromorphone 1 mg/mL injection syringe (0.5 mv5 mL)] Route: IVP; Site: left antecubital; 06:53 Follow up: Response: No Adverse Reaction mv5 Order Results: Lab Order: Amylase; SPEC10/11/16 04:12 Test: AMYLASE; Value: 50; Range: 25-115; Units: U/L; Status: F Lab Order: Basic Metabolic Profile; 10/11/16 04:12 Test: GLUCOSE, FASTING; Value: 96; Range: 70-105; Units: MG/DL; Status: F Test: BLOOD UREA NITROGEN; Value: 11; Range: 7-18; Units: MG/DL; Status: F Test: CREATININE FOR GFR; Value: 0.81; Range: 0.55-1.02; Units: MG/DL; Status: F Test: SODIUM LEVEL; Range: 136-145; Units: MEQ/L; Status: I Test: POTASSIUM SERUM; Range: 3.5-5.1; Units: MEQ/L; Status: I Test: CHLORIDE LEVEL; Range: 98-107; Units: MEQ/L; Status: I Test: CARBON DIOXIDE LEVEL; Range: 21-32; Units: MEQ/L; Status: I Test: ANION GAP; Range: 8-16; Units: MEQ/L; Status: I Test: CALCIUM LEVEL; Range: 8.5-10.1; Units: MG/DL; Status: I Test: GLOMERULAR FILTRATION RATE; Value: > 60.0; Range: >60; Status: F Test: SODIUM LEVEL; Value: 140; Range: 136-145; Units: MEQ/L; Status: F Test: POTASSIUM SERUM; Value: 3.6; Range: 3.5-5.1; Units: MEQ/L; Status: F Test: CHLORIDE LEVEL; Value: 106; Range: 98-107; Units: MEQ/L; Status: F Test: CARBON DIOXIDE LEVEL; Value: 26; Range: 21-32; Units: MEQ/L; Status: F Test: ANION GAP; Value: 8; Range: 8-16; Units: MEQ/L; Status: F Test: CALCIUM LEVEL; Value: 8.4; Range: 8.5-10.1; Abnormal: Below low normal; Units: MG/DL; Status: F Test Note: ; Units are mL/min/1.73 m2 Chronic Kidney Disease Staging per NKF: Stage I & II GFR >=60 Normal to Mildly Decreased Stage III GFR 30-59 Moderately Decreased Stage IV GFR 15-29 Severely Decreased Stage V GFR <15 Very Little GFR Left ESRD GFR <15 on ROLL SKINNER Lab Order: CBC with Diff; SPEC'M 10/11/16 03:38 Test: WHITE BLOOD COUNT; Value: 6.1; Range: 4.0-10.0; Units: K/mm3; Status: F Test: RED BLOOD COUNT; Value: 4.45; Range: 4.00-5.40; Units: M/mm3; Status: F Test: HEMOGLOBIN; Value: 12.9; Range: 12.0-16.0; Units: g/dl; Status: F Test: HEMATOCRIT; Value: 38.7; Range: 36.0-47.0; Units: %; Status: F Test: MEAN CORPUSCULAR VOLUME; Value: 87.0; Range: 80.0-96.0; Units: fl; Status: F Test: MEAN CORPUSCULAR HEMOGLOBIN; Value: 28.9; Range: 27.0-33.0; Units: pg; Status: F Test: MEAN CORPUSCULAR HGB CONC; Value: 33.3; Range: 32.0-36.5; Units: g/dl; Status: F Test: RED CELL DISTRIBUTION WIDTH; Value: 13.4; Range: 11.5-14.5; Units: %; Status: F Test: PLATELET COUNT, AUTOMATED; Value: 283; Range: 150-450; Units: k/mm3; Status: F Test: NEUTROPHILS %; Value: 46.8; Range: 36.0-66.0; Units: %; Status: F Test: LYMPH %; Value: 37.1; Range: 24.0-44.0; Units: %; Status: F Test: MONO %; Value: 4.4; Range: 0.0-5.0; Units: %; Status: F Test: EOS %; Value: 8.2; Range: 0.0-3.0; Abnormal: Above high normal; Units: %; Status: F Test: BASO %; Value: 0.5; Range: 0.0-1.0; Units: %; Status: F Test: LARGE UNSTAINED CELL %; Value: 3.0; Range: 0.0-4.0; Units: %; Status: F Test: NEUTROPHILS #; Value: 2.9; Range: 1.8-7.7; Units: K/mm3; Status: F Test: LYMPH #; Value: 2.3; Range: 1.5-4.5; Units: K/mm3; Status: F Test: MONO #; Value: 0.3; Range: 0.0-0.8; Units: K/mm3; Status: F Test: EOS #; Value: 0.5; Range: 0.0-0.50; Units: K/mm3; Status: F Test: BASO #; Value: 0.0; Range: 0.0-0.2; Units: K/mm3; Status: F Test: LARGE UNSTAINED CELL #; Value: 0.2; Range: 0.0-0.4; Units: K/mm3; Status: F Lab Order: HCG,Serum Qualitative; [facility] 10/11/16 04:12 Test: HCG, SERUM QUALITATIVE; Value: NEGATIVE; Range: NEGATIVE; Status: F Lab Order: Lipase; [facility] 10/11/16 04:12 Test: LIPASE; Value: 186; Range: 73-393; Units: U/L; Status: F Lab Order: Liver Profile; [facility] 10/11/16 04:12 Test: AST/SGOT; Value: 15; Range: 15-37; Units: U/L; Status: F Test: ALT/SGPT; Value: 14; Range: 12-78; Units: U/L; Status: F Test: ALKALINE PHOSPHATASE; Value: 64; Range: 45-117; Units: U/L; Status: F Test: BILIRUBIN,TOTAL; Value: 0.1; Range: 0.2-1.0; Abnormal: Below low normal; Units: MG/DL; Status: F Test: BILIRUBIN,DIRECT; Value: < 0.1; Range: 0.0-0.2; Units: MG/DL; Status: F Test: TOTAL PROTEIN; Value: 7.1; Range: 6.4-8.2; Units: GM/DL; Status: F Test: ALBUMIN; Value: 3.4; Range: 3.2-5.2; Units: GM/DL; Status: F Test: ALBUMIN/GLOBULIN RATIO; Value: 0.92; Range: 1.00-1.93; Abnormal: Below low normal; Status: F Lab Order: Partial Thromboplastin Time; [facility] 04[facility]12 Test: PARTIAL THROMBOPLASTIN TIME; Value: 31.5; Range: 26.6-37.1; Units: SECONDS; Status: F Lab Order: Prothrombin Time Profile\\E\\INR; 10/11/16 04:12 Test: PROTHROMBIN TIME; Value: 13.7; Range: 12.3-14.5; Units: SECONDS; Status: F Test: INR; Value: 1.04; Status: F Test Note: ; THERAPUTIC HUMAN INR VALUES INDICATIONS NORMAL RANGES PROPHYLAXIS/TREATMENT OF: VENOUS THROMBOSIS 2.0-3.0 PULMONARY EMBOLISM 2.0-3.0 PREVENTION OF SYSTEMIC EMBOLISM FROM: TISSUE HEART VALVES 2.0-3.0 ACUTE MYOCARDIAL INFARCTION 2.0-3.0 VALVULAR HEART DISEASE 2.0-3.0 ATRIAL FIBRILLATION 2.0-3.0 MECHANICAL VALVES(HIGH RISK) 2.5-3.5 RECURRENT MYOCARDIAL INFARCTION 2.5-3.5 Lab Order: Type & Screen; 10/11/16 04:12 Test: BLOOD TYPE; Value: O POS; Status: F Test: AB SCREEN (INDIRECT BRANDY)VIS; Value: NEGATIVE; Status: F Radiology Order: CT ABD & PELVIS: IV Contrast Only Test: CT ABD & PELVIS: IV Contrast Only REASON FOR EXAMINATION: Abdomen Pain; ; CLINICAL HISTORY: Abdominal pain.; TECHNIQUE: Multiple axial, sagittal and coronal CT images were obtained through the abdomen and pelvi; s after administration of intravenous contrast material.; COMMENTS:; The liver is mildly enlarged with decreased attenuation without mass or defect. There is no intra or; extrahepatic biliary ductal dilatation. The spleen is normal. The gallbladder is surgically absent. T; he pancreas is of normal contour and attenuation characteristics. There is no evidence of adrenal mas; s.; Both kidneys demonstrate prompt and equal nephrograms. The kidneys are normal in size, shape and conf; iguration. There is no evidence of renal or ureteral mass. No renal or ureteral calculi are identifie; d. There is no hydroureter or hydronephrosis.; No evidence for appendicitis. There is no bowel wall thickening. No evidence for small or large farhat; l obstruction. There is no evidence of abdominal ascites or lymphadenopathy. Both small bowels.; There is no evidence of intrinsic or extrinsic bladder mass. There is no pelvic ascites or lymphadeno; mame.; Fecal stasis.; Images of the lung bases show no evidence of pleural or parenchymal mass. There are no pleural effusi; ons.; The bony structures are free of lytic or blastic lesions. Multilevel degenerative changes are seen in; volving the thoracolumbar spine. Scattered calcifications are seen involving the aorta and major bran; ches compatible with atherosclerosis.; IMPRESSION:; Fluid filled small bowels. Ileus versus developing enteritis.; Fecal stasis.; Thank you for your kind referral of this patient.; ; Outcome: 06:29 Discharge ordered by Provider. mm11 06:52 Discharge Assessment: Patient awake, alert and oriented x 3. No cognitive and/or mv5 functional deficits noted. Patient verbalized understanding of disposition instructions. patient administered narcotics - yes. Pt provided with safe discharge. The following High Risk Discharge criteria are identified: None. Condition: stable. Discharge instructions given to patient, Demonstrated understanding of Pt was receptive of discharge instructions/ teaching. CT Study completed. Property sent home with patient. 07:03 Patient left the ED. mv5 Signatures: Dispatcher [employer] EDMS Maria Jurado, Reg Reg gb Joaquin Pineda DO DO mm11 Ariel Aguilar,RN RN nn1 Taylor Arroyo KimRN RN kas2 Marge Jones,RN RN cf2 Walt Piña, Reg Reg pm4 Millie MoralesRN RN mv5 Chart Complete MTDD
== END 2016-10-11 07:03 | disposition home or self-care (01) ==
LOC: M ED 03:12
DX: K59.00 Constipation, unspecified (principal); K58.9 Irritable bowel syndrome, unspecified; F41.9 Anxiety disorder, unspecified; N80.9 Endometriosis, unspecified; Z79.891 Long term (current) use of opiate analgesic; Z79.899 Other long term (current) drug therapy; Z79.890 Hormone replacement therapy; Z88.5 Allergy status to narcotic agent; Z88.8 Allergy status to other drugs, medicaments and biological substances
CPT/HCPCS: 36415; 74177; 80048; 80076; 82150; 83690; 84703; 85025; 85610; 85730; 86850; 86900; 86901; 96365; 96366; 96375; 96376; 99284; C9113; J1170; J2405; Q9967

== ENCOUNTER 2016-10-17 12:42 | Observation (INO) | payer OTHER ==
[~2016-10-17] VITALS: Ht 154.9 cm; Wt 77.1 kg
[2016-10-17] MEDS ORDERED: SUCRALFATE 1 GM TAB As Ordered ONE (13:50)
[2016-10-17] MEDS ORDERED: ONDANSETRON 4MG/2ML VIAL (J2405) As Ordered ONE (13:50)
[2016-10-17] MEDS ORDERED: PANTOPRAZOLE 40MG INJ (PROTONIX) (C9113) As Ordered ONE (13:50)
[2016-10-17 13:57] LABS: BASO % 0.7 % (0.0-1.0); EOS # 0.5 K/mm3 (0.0-0.50); EOS % 7.4 % (0.0-3.0); LARGE UNSTAINED CELL # 0.2 K/mm3 (0.0-0.4); LARGE UNSTAINED CELL % 2.8 % (0.0-4.0); LYMPH # 2.2 K/mm3 (1.5-4.5); LYMPH % 32.4 % (24.0-44.0); MEAN CORPUSCULAR HEMOGLOBIN 29.4 pg (27.0-33.0); MEAN CORPUSCULAR HGB CONC 34.2 g/dl (32.0-36.5); MEAN CORPUSCULAR VOLUME 85.9 fl (80.0-96.0); MONO # 0.2 K/mm3 (0.0-0.8); MONO % 3.3 % (0.0-5.0); NEUTROPHILS # 3.6 K/mm3 (1.8-7.7); NEUTROPHILS % 53.3 % (36.0-66.0); PLATELET COUNT, AUTOMATED 287 k/mm3 (150-450); RED CELL DISTRIBUTION WIDTH 13.3 % (11.5-14.5); WHITE BLOOD COUNT 6.8 K/mm3 (4.0-10.0)
[2016-10-17 14:02] LABS: INR 1.02
--- NOTE | 2016-10-17 14:09 | REP ---
Clinical: Abdominal pain and hematemesis. Comparison: 10/11/2016. Findings: Lung bases clear. Visualized heart and pericardium normal. Liver, spleen, pancreas, bilateral adrenal glands and kidneys are normal for noncontrast evaluation. The patient is status post cholecystectomy and hysterectomy with midline anterior abdominal scar noted. The enteric system including stomach, small and large bowel is without obstruction or acute inflammatory process pelvis demonstrates normal bladder. No pelvic fluid or ascites. No adenopathy. No free air. Abdominal aorta normal caliber without aneurysm. Musculoskeletal structures without focal osseous abnormality. Impression: Essentially normal noncontrast CT of the abdomen and pelvis. No acute pathology noted. Signed by Edis Verde MD 10/17/2016 02:01 P
[2016-10-17 14:14] LABS: ALBUMIN 3.6 GM/DL (3.2-5.2); ALBUMIN/GLOBULIN RATIO 0.86 (1.00-1.93); ALKALINE PHOSPHATASE 61 U/L (45-117); ALT/SGPT 20 U/L (12-78); AMYLASE 40 U/L (25-115); ANION GAP 10 MEQ/L (8-16); AST/SGOT 12 U/L (15-37); BILIRUBIN,DIRECT < 0.1 MG/DL (0.0-0.2); BILIRUBIN,TOTAL 0.2 MG/DL (0.2-1.0); BLOOD UREA NITROGEN 9 MG/DL (7-18); CALCIUM LEVEL 8.8 MG/DL (8.5-10.1); CARBON DIOXIDE LEVEL 27 MEQ/L (21-32); CHLORIDE LEVEL 104 MEQ/L (98-107); CREATININE FOR GFR 0.89 MG/DL (0.55-1.02); GLOMERULAR FILTRATION RATE > 60.0 (>60); GLUCOSE, FASTING 108 MG/DL (70-105); POTASSIUM SERUM 3.6 MEQ/L (3.5-5.1); SODIUM LEVEL 141 MEQ/L (136-145); TOTAL PROTEIN 7.8 GM/DL (6.4-8.2)
[2016-10-17] MEDS ORDERED: MORPHINE 2 MG/ML 1ML SYRINGE As Ordered ONE (14:33)
[2016-10-17] MEDS ORDERED: XANA0.5T PO (14:43)
[2016-10-17] MEDS ORDERED: ZANA4CAP PO (14:43)
[2016-10-17] MEDS ORDERED: ZOFR4TAB3 PO (14:43)
[2016-10-17] MEDS ORDERED: OXYC1TAB23 PO (14:43)
[2016-10-17] MEDS ORDERED: ESTR2TA PO (14:43)
[2016-10-17] MEDS ORDERED: PANT40TA2 PO (14:43)
[2016-10-17] MEDS ORDERED: CARA1TAB2 PO (14:43)
[2016-10-17] MEDS ORDERED: HYDROmorphone HCL 1 MG/ML SYRINGE (J1170) As Ordered ONE ×2 (14:43→16:31)
[2016-10-17] MEDS ORDERED: ZOLO100T PO (14:43)
[2016-10-17] MEDS ORDERED: PANTOPRAZOLE SODIUM 40 MG in D5W MINI-BAG PLUS 50 ML IV SCH (15:16)
--- NOTE | 2016-10-17 15:16 | HPEPDOC ---
Medical History and Physical Date of Admission 10/17/16 History and Physical ATTENDING: PCP: S[facility] CC: vomiting clots of blood HPI: 31yoF with a past medical history significant for h/o peptic ulcer seen in ED Sat and placed on Carafate for abdominal pain, Was seen at PCP Wed 10/15 and was placed on Protonix daily and Carafate. From Thu to today she reports abdominal pain worsening with vomiting BRB with clots. Today she states she has tolerated liquids related to worsening abdominal pain. Denies any fevers, chills, weakness, fatigue, COOPER, CP, SOB, cough, palpitations, change in bladder habits. Upon presentation to the hospital the patient was found to have UGI bleeding, thus the hospitalist team was consulted. PMHx: H/O peptic ulcer 2009, PPI x 2 mo. anxiety endometriosis IBS PSHX: laparoscopy x 8- chronic abdominal pain hysterectomy hernia repair cholecystectomy ASD repair cystocele repair EGD 2009 SOCHX: Resides in: [place] Marital Status: Kids: 3 Employment: unemployed Tobacco use: denies ETOH: denies Illicit Drugs: Denies Recent travel: denies Advanced directives:denies FAMHX: Mother: Alive, DM Father: Alive, IDDM Siblings: Alive, well Children: Alive, well Unexpected deaths due to medical reasons: None. ROS: As noted in HPI, otherwise 11pt ROS of systems reviewed and remarkable only for chronic abdominal and pelvic pain. PE: GEN: 31yoF, appears stated age. Well-nourished, well developed. No acute distress. Alert and oriented x 3. Pleasant, interactive. HEENT: Normocephalic, atraumatic. Pupils are equal, round, and reactive to light. Extraocular movements are intact. No nystagmus appreciated. Sclera are nonicteric. Conjunctiva without injection. Nose midline. Nasal turbinates without bogginess. EACs both patent BL. TMs both visualized and christensen with good cone of light, no bulging or erythema. No facial asymmetry. Moist mucous membranes. Dentition fair. Pharynx pink and moist, no cobblestoning. Neck supple , trachea midline. No lymphadenopathy or thyromegaly appreciated. CHEST: Regular rate and rhythm, +S1, +S2 LUNGS: Clear to auscultation bilaterally. No wheezes, rales, or rhonchi. Breathing appears symmetric and easy. Patient is speaking in full sentences. No accessory muscle use. ABD: Round, soft, TTP across upper abdomen, non-distended. No guarding/rebound. BS present, hypoactive. No costovertebral angle tenderness. EXT: Pulses 2+ bilaterally dorsalis pedis and radial. No lower extremity edema appreciated. SKIN: [place], dry, warm. Capillary refill <2sec. No rashes. NEURO: Alert and oriented x 3. Cranial nerves III-XII are intact. No focal deficits appreciated. CT: Abd and pelvis. Neg. OB pos in ED. A&P: 31yoF with a past medical history significant for h/o peptic ulcer seen in ED Sat and placed on Carafate for abdominal pain, Was seen at PCP Wed 10/15 and was placed on Protonix daily and Carafate. From Wed to today she reports abdominal pain worsening with vomiting BRB with clots. Today she states she has tolerated liquids related to worsening abdominal pain. The patient will be admitted to M/S for at least [address] Huitron's service. Pt is discussed with Dr Collier. UGI bleeding. NPO. IVF at 75 cc/hr. IV protonix gtt. Zofran IV as needed. CBC q6HR. T&C. Consent for blood products placed on chart. Dr Smith consulted and agrees to see pt this PM. Possibly proceeding with EGD this PM, PO meds on hold for now and to be restarted post procedure. H/O IBS. Endometriosis Chronic Pain. Anxiety/depression S/P hysterectomy DVT prophylaxis. SCD/TEDS The patient is a Full Code. Vital Signs 121/79 92 18 98.2 97RA Laboratory Data Labs 24H Laboratory Tests 2 10/17/16 13:47: Aspartate Amino Transf (AST/SGOT) 12L, Alanine Aminotransferase (ALT/SGPT) 20, Alkaline Phosphatase 61, Total Bilirubin 0.2, Direct Bilirubin < 0.1, Albumin 3.6, Albumin/Globulin Ratio 0.86L, Amylase Level 40, Anion Gap 10, White Blood Count 6.8, Red Blood Count 4.53, Hemoglobin 13.3, Hematocrit 38.9, Mean Corpuscular Volume 85.9, Mean Corpuscular Hemoglobin 29.4, Mean Corpuscular Hemoglobin Concent 34.2, Red Cell Distribution Width 13.3, Platelet Count 287, Neutrophils (%) (Auto) 53.3, Lymphocytes (%) (Auto) 32.4, Monocytes (%) (Auto) 3.3, Eosinophils (%) (Auto) 7.4H, Basophils (%) (Auto) 0.7, Neutrophils # (Auto ) 3.6, Lymphocytes # (Auto) 2.2, Monocytes # (Auto) 0.2, Eosinophils # (Auto) 0.5, Basophils # (Auto) 0.0, Calcium Level 8.8, Glomerular Filtration Rate > 60.0, Large Unclassified Cells # 0.2, Large Unclassified Cells % 2.8, Lipase 105 , Prothromb Time International Ratio 1.02, Prothrombin Time 13.5, Total Protein 7.8 CBC/BMP Laboratory Tests 10/17/16 13:47 Red Blood Count 4.53, Mean Corpuscular Volume 85.9, Mean Corpuscular Hemoglobin 29.4, Mean Corpuscular Hemoglobin Concent 34.2, Red Cell Distribution Width 13.3 , Neutrophils (%) (Auto) 53.3, Lymphocytes (%) (Auto) 32.4, Monocytes (%) (Auto ) 3.3, Eosinophils (%) (Auto) 7.4 H, Basophils (%) (Auto) 0.7, Neutrophils # ( Auto) 3.6, Lymphocytes # (Auto) 2.2, Monocytes # (Auto) 0.2, Eosinophils # (Auto ) 0.5, Basophils # (Auto) 0.0 Home Medications Scheduled Estradiol (Estradiol) 2 Mg Tab 2 MG PO QHS Pantoprazole Sodium (Pantoprazole Sodium) 40 Mg Tab 40 MG PO DAILY Sertraline Hcl (Zoloft) 100 Mg Tab 200 MG PO QHS Sucralfate (Carafate) 1 Gm Tab 1 GM PO ACHS Tizanidine Hydrochloride (Zanaflex) 4 Mg Cap 4 MG PO QHS Scheduled PRN Alprazolam (Xanax) 0.5 Mg Tab 0.5 MG PO BID PRN PRN ANXIETY Ondansetron (Zofran Odt) 4 Mg Tab 4 MG PO Q4H PRN PRN NAUSEA Oxycodone/Acetaminophen (Oxycodone/Acetaminophen 5-325 mg) 1 Tab Tab 1 TAB PO Q6H PRN PRN PAIN Allergies Coded Allergies: Cefixime (Unverified Allergy, Unknown, HIVES, 10/17/16) Morphine (Unverified Allergy, Unknown, 10/17/16) Paula Velarde Oct 17, 2016 15:16
[2016-10-17] MEDS ORDERED: ONDANSETRON 4MG/2ML VIAL (J2405) IV PRN (15:30)
[2016-10-17] MEDS ORDERED: METOCLOPRAMIDE INJ 10MG/2ML VIAL (J2765) As Ordered ONE (16:31)
--- NOTE | 2016-10-17 17:19 | EDDOCDS ---
Nurse's Notes [facility] Name: Alessia Huff Age: 31 yrs Sex: Female : 1985 Arrival Date: 10/17/2016 Time: 12:42 Bed I3 / M3 Private MD: Selene Martins E Diagnosis: Acute gastritis with bleeding Presentation: 10/17 12:46 Presenting complaint: Patient states: Vomiting with clots of blood, dark stools this ck1 morning. Seen here on Thursday for abdominal pain, states she was diagnosed with and "ulcer". Risk factors: the patient reports no vaginal bleeding. Adult Sepsis Screening: The patient does not have new or worsening altered mentation. Patient's respiratory rate is less than 22. Systolic blood pressure is greater than 100. Patient has a qSOFA score of 0- Negative Sepsis Screen. Suicide/Homicide risk assessment- the patient denies having any suicidal and/or homicidal ideations and does not present with any other emotional, behavioral or mental health complaints. Status: The patient is a dependent. Transition of care: patient was not received from another setting of care. 12:46 Acuity: LORENZO Level 3 ck1 12:46 Method Of Arrival: Walkin/Carried/Asstd ck1 Triage Assessment: 12:50 General: Appears uncomfortable, Behavior is appropriate for age, cooperative. Pain: ck1 Location: abdomen Pain currently is 6 out of 10 on a pain scale. HIV screening NA for this visit Offered previously. GI: Abdomen is obese, Reports nausea, vomiting. Derm: Skin is intact, is healthy with good turgor, Skin is pink, warm & dry. Musculoskeletal: Circulation, motion, and sensation intact Range of motion intact in all extremities. 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 Carafate Oral 4 times per day (Last dose: 10/17/2016 08:30) 2. Protonix Oral once daily (Last dose: 10/17/2016 08:00) 3. Zofran (as hydrochloride) 4 mg Oral tab PRN (Last dose: 10/17/2016 11:00) 4. estradiol 2 mg Oral tab 2 tab once daily 5. oxycodone 5 mg Oral tab 3 times per day (Last dose: 10/16/2016 20:00) 6. Xanax 0.5 mg Oral tab 1 tab as needed 7. Zanaflex 4 mg Oral tab 1 tab every 8 hours 8. Zoloft 100 mg Oral tab 2 tabs once daily - PMHx: Anxiety; Endometriosis; IBS; ulcers; - PSHx: laproscopy X 8; Hysterectomy; Hernia repair- Umbilical; Cholecystectomy; Atrial septal defect repair; cystocele rupture repair; Laparoscopy; - Social history: Smoking status: Patient states was never smoker of tobacco. No barriers to communication noted, The patient speaks fluent Kinyarwanda, Speaks appropriately for age. - Family history: Not pertinent. - : The pt / caregiver states he / she is not on anticoagulants. Home medication list is obtained from [employer] import data. - Exposure Risk Screening:: None identified. Screenin:15 Screening information is obtained from the patient. Fall risk: No risks identified. srm Assistance ADL's: requires no assistance with activities of daily living. Abuse/DV Screen: The patient / caregiver reports he/she is: not in a situation that causes fear, pain or injury. Nutritional screening: No deficits noted. Advance Directives: There is no active DNR order. home support is adequate. Assessment: 14:00 General: Appears in no apparent distress, Behavior is appropriate for age, cooperative. srm Neurological: No deficits noted. Cardiovascular: No deficits noted. Respiratory: Airway is patent Respiratory effort is even, unlabored, Breath sounds are clear bilaterally. GI: Abdomen is non- distended obese, Bowel sounds present X 4 quads. Abd is soft X 4 quads Abd is tender to palpation X 4 quads. Derm: No deficits noted. 15:00 General: Appears in no apparent distress, medicated per order. . srm 16:30 General: Appears in no apparent distress, Behavior is appropriate for age, cooperative. srm Neurological: No deficits noted. EENT: No deficits noted. Respiratory: Airway is patent Respiratory effort is even, unlabored. 16:31 GI: Abdomen is non- distended Bowel sounds present X 4 quads. Abd is tender to srm palpation X 4 quads. 17:10 General: Appears in no apparent distress, comfortable, Behavior is appropriate for age, cjh cooperative, no changes from previous assessments, patient denies needs at this time and is awaiting admission. 17:15 General: Appears in no apparent distress, Behavior is appropriate for age, cooperative. [facility] Neurological: No deficits noted. Cardiovascular: No deficits noted. Respiratory: No deficits noted. GI: Denies nausea. Vital Signs: 12:45 BP 121 / 79; Pulse 92; Resp 18 S; Temp 98.2(O); Pulse Ox 97% on R/A; Weight 77.11 kg gr2 (R); Height 5 ft. 1 in. (154.94 cm) (R); Pain 7/10; 16:24 BP 123 / 88; Pulse 75; Resp 18; Temp 98.7; Pulse Ox 98% ; Pain 6/10; jlf 17:14 BP 116 / 70; Pulse 86; Resp 18; Temp 99.1(O); Pulse Ox 98% ; Pain 4/10; srm 12:45 Body Mass Index 32.12 (77.11 kg, 154.94 cm) gr2 Vitals: 12:45 Log In Time: October 17, 2016 at 12:45. gr2 ED Course: 12:44 Patient visited by Shana Bello. gr2 12:44 Selene Martins is Private Physician. gr2 12:44 Patient moved to Waiting gr2 12:46 Patient visited by Shana Bello. gr2 12:46 Patient moved to Pre RCE gr2 12:48 Triage Initiated ck1 13:16 Patient moved to Triage 1 ttb 13:17 [facility] Robertson FNP [facility] ke 13:17 Patient visited by Gilberto Robertson FNP. ke 13:17 Patient visited by Gilberto Robertson FNP. ke 13:35 Patient moved to I3 / M3 jjr 13:39 Patient visited by Sofie Durham PCA. jlf 13:56 The patient / caregiver is instructed regarding the plan of care and ED course. srm Accompanied by Family Member, Patient has correct armband on for positive identification. Placed in gown. Bed in low position. Call light in reach. Side rails up X 1. 13:56 Inserted saline lock: 20 gauge in right antecubital area and blood collected. The [facility] patient tolerated the procedure well. 14:01 Patient visited by Frida Barton RN. [facility] 14:27 CT ABD & PELVIS: No Contrast Returned. EDMS 14:31 Patient visited by Gilberto Robertson FNP. ke 14:42 Patient visited by Sofie Durham PCA. jlf 14:48 [facility] Payment Agreement was scanned into [employer] and attached to record. lg 14:55 Apoorva Collier air brush artist. ys2 15:18 Patient visited by Gilberto Robertson FNP. ke 15:20 Apoorva Collier is Hospitalizing Provider. ke 16:24 Patient visited by Sofie Durham PCA. jlf 16:25 Patient visited by Sofie Durham PCA. jlf 16:30 report called pierre little on peds. srm 16:31 Patient visited by Frida Barton, KAYLA. srm 17:08 Patient visited by Frida Barton, KAYLA. srm 17:15 No procedures done that require assistance. srm Administered Medications: 13:56 Drug: NS 0.9% 1000 ml [sodium chloride 0.9 % intravenous solution] Route: IV; Rate: srm bolus; Site: right antecubital; 13:57 Drug: Ondansetron 4 mg [ondansetron HCl 2 mg/mL intravenous solution (2 mL)] Route: srm IVP; Site: right antecubital; 13:57 Drug: Sucralfate 1 grams [sucralfate 1 gram tablet (1 tabs)] Route: PO; srm 13:59 Drug: pantoprazole 80 mg [pantoprazole 40 mg intravenous solution] Route: IV; Rate: srm bolus; Site: right antecubital; 14:37 Not Given (Other Intervention Used; other used): morphine 2 mg IVP every 15 minutes; ke Document pain score/vitals after each dose (Hold if SBP < 90mmHg) x3 14:54 Drug: Dilaudid - HYDROmorphone 0.5 mg [hydromorphone 1 mg/mL injection syringe (0.5 cjh mL)] Route: IVP; Site: right antecubital; 16:38 Drug: Metoclopramide 10 mg [metoclopramide 5 mg/mL injection solution] Route: IV; Rate: jjr 40 mg/hr; Infused Over: 15 mins; Site: right antecubital; Delivery: Syringe pump; 17:14 Follow up: Response: Nausea is resolved srm 16:38 Drug: Dilaudid - HYDROmorphone 0.5 mg [hydromorphone 1 mg/mL injection syringe (0.5 jjr mL)] Route: IVP; Site: right antecubital; 17:14 Follow up: BP 116 / 70; Pulse 86 bpm; Resp 18 bpm; Temp 99.1 Oral; Pulse Ox 98% ; Pain srm 12/08 Adult Intake: 17:15 IV: 1000.00ml (NS); Total: 1000.00ml. srm Order Results: Lab Order: Amylase; SPEC'M 10/17/16 13:47 Test: AMYLASE; Value: 40; Range: 25-115; Units: U/L; Status: F Lab Order: Basic Metabolic Profile; SPEC'M 10/17/16 13:47 Test: GLUCOSE, FASTING; Value: 108; Range: 70-105; Abnormal: Above high normal; Units: MG/DL; Status: F Test: BLOOD UREA NITROGEN; Value: 9; Range: 7-18; Units: MG/DL; Status: F Test: CREATININE FOR GFR; Value: 0.89; Range: 0.55-1.02; Units: MG/DL; Status: F Test: GLOMERULAR FILTRATION RATE; Value: > 60.0; Range: >60; Status: F Test: SODIUM LEVEL; Value: 141; Range: 136-145; Units: MEQ/L; Status: F Test: POTASSIUM SERUM; Value: 3.6; Range: 3.5-5.1; Units: MEQ/L; Status: F Test: CHLORIDE LEVEL; Value: 104; Range: 98-107; Units: MEQ/L; Status: F Test: CARBON DIOXIDE LEVEL; Value: 27; Range: 21-32; Units: MEQ/L; Status: F Test: ANION GAP; Value: 10; Range: 8-16; Units: MEQ/L; Status: F Test: CALCIUM LEVEL; Value: 8.8; Range: 8.5-10.1; Units: MG/DL; Status: F Test Note: ; Units are mL/min/1.73 m2 Chronic Kidney Disease Staging per NKF: Stage I & II GFR >=60 Normal to Mildly Decreased Stage III GFR 30-59 Moderately Decreased Stage IV GFR 15-29 Severely Decreased Stage V GFR <15 Very Little GFR Left ESRD GFR <15 on DYE CAN OPERATOR Lab Order: CBC with Diff; SPEC'M 10/17/16 13:47 Test: WHITE BLOOD COUNT; Value: 6.8; Range: 4.0-10.0; Units: K/mm3; Status: F Test: RED BLOOD COUNT; Value: 4.53; Range: 4.00-5.40; Units: M/mm3; Status: F Test: HEMOGLOBIN; Value: 13.3; Range: 12.0-16.0; Units: g/dl; Status: F Test: HEMATOCRIT; Value: 38.9; Range: 36.0-47.0; Units: %; Status: F Test: MEAN CORPUSCULAR VOLUME; Value: 85.9; Range: 80.0-96.0; Units: fl; Status: F Test: MEAN CORPUSCULAR HEMOGLOBIN; Value: 29.4; Range: 27.0-33.0; Units: pg; Status: F Test: MEAN CORPUSCULAR HGB CONC; Value: 34.2; Range: 32.0-36.5; Units: g/dl; Status: F Test: RED CELL DISTRIBUTION WIDTH; Value: 13.3; Range: 11.5-14.5; Units: %; Status: F Test: PLATELET COUNT, AUTOMATED; Value: 287; Range: 150-450; Units: k/mm3; Status: F Test: NEUTROPHILS %; Value: 53.3; Range: 36.0-66.0; Units: %; Status: F Test: LYMPH %; Value: 32.4; Range: 24.0-44.0; Units: %; Status: F Test: MONO %; Value: 3.3; Range: 0.0-5.0; Units: %; Status: F Test: EOS %; Value: 7.4; Range: 0.0-3.0; Abnormal: Above high normal; Units: %; Status: F Test: BASO %; Value: 0.7; Range: 0.0-1.0; Units: %; Status: F Test: LARGE UNSTAINED CELL %; Value: 2.8; Range: 0.0-4.0; Units: %; Status: F Test: NEUTROPHILS #; Value: 3.6; Range: 1.8-7.7; Units: K/mm3; Status: F Test: LYMPH #; Value: 2.2; Range: 1.5-4.5; Units: K/mm3; Status: F Test: MONO #; Value: 0.2; Range: 0.0-0.8; Units: K/mm3; Status: F Test: EOS #; Value: 0.5; Range: 0.0-0.50; Units: K/mm3; Status: F Test: BASO #; Value: 0.0; Range: 0.0-0.2; Units: K/mm3; Status: F Test: LARGE UNSTAINED CELL #; Value: 0.2; Range: 0.0-0.4; Units: K/mm3; Status: F Lab Order: Lipase; SPEC'M 10/17/16 13:47 Test: LIPASE; Value: 105; Range: 73-393; Units: U/L; Status: F Lab Order: Liver Profile; SPEC' 10/17/16 13:47 Test: AST/SGOT; Value: 12; Range: 15-37; Abnormal: Below low normal; Units: U/L; Status: F Test: ALT/SGPT; Value: 20; Range: 12-78; Units: U/L; Status: F Test: ALKALINE PHOSPHATASE; Value: 61; Range: 45-117; Units: U/L; Status: F Test: BILIRUBIN,TOTAL; Value: 0.2; Range: 0.2-1.0; Units: MG/DL; Status: F Test: BILIRUBIN,DIRECT; Value: < 0.1; Range: 0.0-0.2; Units: MG/DL; Status: F Test: TOTAL PROTEIN; Value: 7.8; Range: 6.4-8.2; Units: GM/DL; Status: F Test: ALBUMIN; Value: 3.6; Range: 3.2-5.2; Units: GM/DL; Status: F Test: ALBUMIN/GLOBULIN RATIO; Value: 0.86; Range: 1.00-1.93; Abnormal: Below low normal; Status: F Lab Order: Prothrombin Time Profile\\E\\INR; SPEC' 10/17/16 13:47 Test: PROTHROMBIN TIME; Value: 13.5; Range: 12.3-14.5; Units: SECONDS; Status: F Test: INR; Value: 1.02; Status: F Test Note: ; THERAPUTIC HUMAN INR VALUES INDICATIONS NORMAL RANGES PROPHYLAXIS/TREATMENT OF: VENOUS THROMBOSIS 2.0-3.0 PULMONARY EMBOLISM 2.0-3.0 PREVENTION OF SYSTEMIC EMBOLISM FROM: TISSUE HEART VALVES 2.0-3.0 ACUTE MYOCARDIAL INFARCTION 2.0-3.0 VALVULAR HEART DISEASE 2.0-3.0 ATRIAL FIBRILLATION 2.0-3.0 MECHANICAL VALVES(HIGH RISK) 2.5-3.5 RECURRENT MYOCARDIAL INFARCTION 2.5-3.5 Lab Order: TYPE & SCREEN; SPEC'M 10/17/16 13:47 Test: BLOOD TYPE; Value: O POS; Status: F Test: AB SCREEN (INDIRECT BRANDY)VIS; Value: NEGATIVE; Status: F Radiology Order: CT ABD & PELVIS: No Contrast Test: CT ABD & PELVIS: No Contrast REASON FOR EXAMINATION: hematemesis; Clinical: Abdominal pain and hematemesis.; ; Comparison: 10/11/2016.; ; Findings:; Lung bases clear. Visualized heart and pericardium normal.; ; Liver, spleen, pancreas, bilateral adrenal glands and kidneys are normal for; noncontrast evaluation. The patient is status post cholecystectomy and; hysterectomy with midline anterior abdominal scar noted. The enteric system; including stomach, small and large bowel is without obstruction or acute; inflammatory process pelvis demonstrates normal bladder. No pelvic fluid or; ascites. No adenopathy. No free air. Abdominal aorta normal caliber without; aneurysm. Musculoskeletal structures without focal osseous abnormality.; ; Impression:; Essentially normal noncontrast CT of the abdomen and pelvis.; No acute pathology noted.; ; ; Signed by; Edis Verde MD 10/17/2016 02:01 P; Outcome: 15:23 Decision to Hospitalize by Provider. ke 17:15 Discharge Assessment: Patient awake, alert and oriented x 3. No cognitive and/or srm functional deficits noted. Patient verbalized understanding of disposition instructions. patient administered narcotics - yes. Patient was admitted to the hospital or transferred to another facility. The following High Risk Discharge criteria are identified: None. Admitted to Pediatrics accompanied by tech, via stretcher, with chart. Condition: stable. CT Study completed. Property :Personal belongings accompany Pt. 17:18 Patient left the ED. srm Signatures: Dispatcher [facility] Frida Varma RN RN srm Goran Harmon, Reg Reg lg Gilberto Robertson, RAKE OPERATOR RAKE OPERATOR ke Master,Mariana,RN RN ck1 Megan Bello, RN RN Ksenia Patton,RN RN cjh Odalis Domínguez RN RN ttShana Gupta gr2 Marva, Sofie, BOILER WATER TESTER BOILER WATER TESTER jlf Sung, Guerin ys2 MTDD
--- NOTE | 2016-10-17 17:19 | EDDOCDS ---
Physician Documentation [facility] Name: Alessia Huff Age: 31 yrs Sex: Female : 1985 Arrival Date: 10/17/2016 Time: 12:42 Bed I3 / M3 Private MD: Selene Martins E Disposition: 10/17/16 15:23 Hospitalization ordered by Apoorva Collier for Inpatient Admission. Preliminary diagnosis is Acute gastritis with bleeding. - Bed requested for M PED. - Status is Inpatient Admission. srm - Condition is Stable. - Problem is an ongoing problem. - Symptoms are unchanged. Historical: - Allergies: Morphine (Chest pain, SOB, itching); Suprax (Hives); - Home Meds: 1. Carafate Oral 4 times per day (Last dose: 10/17/2016 08:30) 2. Protonix Oral once daily (Last dose: 10/17/2016 08:00) 3. Zofran (as hydrochloride) 4 mg Oral tab PRN (Last dose: 10/17/2016 11:00) 4. estradiol 2 mg Oral tab 2 tab once daily 5. oxycodone 5 mg Oral tab 3 times per day (Last dose: 10/16/2016 20:00) 6. Xanax 0.5 mg Oral tab 1 tab as needed 7. Zanaflex 4 mg Oral tab 1 tab every 8 hours 8. Zoloft 100 mg Oral tab 2 tabs once daily - PMHx: Anxiety; Endometriosis; IBS; ulcers; - PSHx: laproscopy X 8; Hysterectomy; Hernia repair- Umbilical; Cholecystectomy; Atrial septal defect repair; cystocele rupture repair; Laparoscopy; - Social history: Smoking status: Patient states was never smoker of tobacco. No barriers to communication noted, The patient speaks fluent [place], Speaks appropriately for age. - Family history: Not pertinent. - : The pt / caregiver states he / she is not on anticoagulants. Home medication list is obtained from [employer] import data. - Exposure Risk Screening:: None identified. COMB CAPPER: 10/17 12:50 LMP N/A - Hysterectomy ck1 Vital Signs: 12:45 BP 121 / 79; Pulse 92; Resp 18 S; Temp 98.2(O); Pulse Ox 97% on R/A; Weight 77.11 kg / gr2 170 lbs (R); Height 5 ft. 1 in. (154.94 cm) (R); Pain 7/10; 16:24 BP 123 / 88; Pulse 75; Resp 18; Temp 98.7; Pulse Ox 98% ; Pain 6/10; jlf 17:14 BP 116 / 70; Pulse 86; Resp 18; Temp 99.1(O); Pulse Ox 98% ; Pain 4/10; srm 12:45 Body Mass Index 32.12 (77.11 kg, 154.94 cm) gr2 MDM: 13:28 NS 0.9% 1000 ml IV at bolus once ordered. ke 13:28 Ondansetron 4 mg IVP once ordered. ke 13:28 IV Saline Lock ordered. ke 13:28 Undress patient appropriately for examination ordered. ke 13:28 pantoprazole 80 mg IV at bolus once ordered. ke 13:28 Sucralfate 1 grams PO once ordered. ke 13:29 Amylase Ordered. EDMS 13:29 Basic Metabolic Profile Ordered. EDMS 13:29 CBC with Diff Ordered. EDMS 13:29 Lipase Ordered. EDMS 13:29 Liver Profile Ordered. EDMS 13:29 Prothrombin Time Profile\E\INR Ordered. EDMS 13:29 CT ABD & PELVIS: No Contrast Ordered. EDMS 13:29 NOTHING BY MOUTH+DIET ordered. EDMS 13:37 BED REQUEST+ADM ordered. EDMS 14:20 Basic Metabolic Profile Reviewed. ke 14:20 CBC with Diff Reviewed. ke 14:20 Liver Profile Reviewed. ke 14:20 Amylase Reviewed. ke 14:20 Lipase Reviewed. ke 14:20 Prothrombin Time Profile\E\INR Reviewed. ke 14:31 morphine 2 mg IVP every 15 minutes; Document pain score/vitals after each dose (Hold if ke SBP < 90mmHg) x3 ordered. 14:33 Financial registration complete. lg 14:37 Dilaudid - HYDROmorphone 0.5 mg IVP once ordered. ke 14:48 [facility] Payment Agreement was scanned into [employer] and attached to record. lg 15:07 Admission / Observation Status ordered. EDMS 15:23 TYPE & SCREEN Ordered. EDMS 15:23 NPO DIET ordered. EDMS 15:23 COMPLETE BLOOD COUNT Ordered. EDMS 16:27 Metoclopramide 10 mg IV at 40 mg/hr once over 15 mins ordered. ke 16:27 Dilaudid - HYDROmorphone 0.5 mg IVP once ordered. ke Administered Medications: 13:56 Drug: NS 0.9% 1000 ml [sodium chloride 0.9 % intravenous solution] Route: IV; Rate: srm bolus; Site: right antecubital; 13:57 Drug: Ondansetron 4 mg [ondansetron HCl 2 mg/mL intravenous solution (2 mL)] Route: srm IVP; Site: right antecubital; 13:57 Drug: Sucralfate 1 grams [sucralfate 1 gram tablet (1 tabs)] Route: PO; srm 13:59 Drug: pantoprazole 80 mg [pantoprazole 40 mg intravenous solution] Route: IV; Rate: srm bolus; Site: right antecubital; 14:37 Not Given (Other Intervention Used; other used): morphine 2 mg IVP every 15 minutes; ke Document pain score/vitals after each dose (Hold if SBP < 90mmHg) x3 14:54 Drug: Dilaudid - HYDROmorphone 0.5 mg [hydromorphone 1 mg/mL injection syringe (0.5 cjh mL)] Route: IVP; Site: right antecubital; 16:38 Drug: Metoclopramide 10 mg [metoclopramide 5 mg/mL injection solution] Route: IV; Rate: jjr 40 mg/hr; Infused Over: 15 mins; Site: right antecubital; Delivery: Syringe pump; 17:14 Follow up: Response: Nausea is resolved srm 16:38 Drug: Dilaudid - HYDROmorphone 0.5 mg [hydromorphone 1 mg/mL injection syringe (0.5 jjr mL)] Route: IVP; Site: right antecubital; 17:14 Follow up: BP 116 / 70; Pulse 86 bpm; Resp 18 bpm; Temp 99.1 Oral; Pulse Ox 98% ; Pain srm 4/10 Adult Signatures: Dispatcher [employer] EDMS Frida Barton RN RN srm Goran Harmon, Reg Reg lg Gilberto Robertson, IRRIGATION SERVICE TECHNICIAN IRRIGATION SERVICE TECHNICIAN Mariana Ortiz RN RN ck1 Sofie Durham, SWITCHMAN SWITCHMAN jlf Megan Bello RN, Jane RN [facility] The chart was reviewed and I authenticate all verbal orders and agree with the evaluation and treatment provided.Attachments: 14:48 [facility] Payment Agreement lg MTDD
[2016-10-17] MEDS: NS 1,000 ML IV SCH (17:39)
[2016-10-17] MEDS ORDERED: SUCRALFATE 1 GM TAB PO SCH (18:00)
[2016-10-17 18:21] VITALS: BP 119/57
[2016-10-17] MEDS ORDERED: ACETAMINOPHEN TAB 650MG DOSE (2X325MG) PO ONE (19:00)
[2016-10-17 20:00] VITALS: BP 122/76
[2016-10-17 20:04] LABS: MEAN CORPUSCULAR HEMOGLOBIN 28.3 pg (27.0-33.0); MEAN CORPUSCULAR HGB CONC 33.3 g/dl (32.0-36.5); MEAN CORPUSCULAR VOLUME 84.9 fl (80.0-96.0); RED CELL DISTRIBUTION WIDTH 13.2 % (11.5-14.5); WHITE BLOOD COUNT 5.5 K/mm3 (4.0-10.0)
[2016-10-17] MEDS ORDERED: MIRALAX *UNIT DOSE* 17GM PACKET PO SCH (21:00)
[2016-10-17] MEDS ORDERED: LIDOCAINE 2% INJ 100 MG/5 ML SDV (FOR ANES.) As Ordered ONE (22:57)
[2016-10-17] MEDS ORDERED: PROPOFOL 200 MG/20 ML VIAL As Ordered ONE ×2 (22:57→23:04)
--- NOTE | 2016-10-17 23:31 | ROOR ---
Patient Name: Alessia Huff Procedure Date: 10/17/2016 8:44 PM Date of : 1985 Age: 31 Room: Main OR Gender: Female Note Status: Finalized Procedure: Upper GI endoscopy Indications: Generalized abdominal pain, Hematemesis, Nausea with vomiting Providers: Mayito SMITH MD Referring MD: 2. Inpatient 2. Inpatient Requesting Provider: Medicines: Monitored Anesthesia Care Complications: No immediate complications. Procedure: Pre-Anesthesia Assessment: - After reviewing the risks and benefits, the patient was deemed in satisfactory condition to undergo the procedure. The Endoscope was introduced through the mouth, and advanced to the second part of duodenum. The upper GI endoscopy was accomplished without difficulty. The patient tolerated the procedure well. Findings: Scattered mild inflammation characterized by erythema was found in the gastric antrum. Biopsies were taken with a cold forceps for histology. No gross lesions were noted in the entire examined stomach. The cardia and gastric fundus were normal on retroflexion. The examined esophagus was normal. The examined duodenum was normal. Impression: - Minimal gastritis. Biopsied. - Stomach otherwise normal. - Normal esophagus. - Normal examined duodenum. - Detailed exam reveals no significant lesion in upper GI tract. Gastric and duodenal fluid is clear. Recommendation: - Use Protonix (pantoprazole) 40 mg PO BID. - Observe patient's clinical course. - Her CT scan is notable only for large fecal stasis and is likely related to her chronic narcotic medications. Consideration may be given to starting Pt on movantik if her chronic narcotics are to continue indefinitely. I will in meantime start her on Miralax 34 gm po bid. Mayito Smith MD Mayito SMITH MD 10/17/2016 11:30:42 PM This report has been signed electronically. Number of Addenda: 0 Note Initiated On: 10/17/2016 8:44 PM Estimated Blood Loss: Estimated blood loss: none.
[2016-10-18] VITALS (8 sets, daily range): BP systolic 110–132; BP diastolic 64–86
[2016-10-18] MEDS: PANTOPRAZOLE SODIUM 40 MG in D5W MINI-BAG PLUS 50 ML IV SCH ×2 (00:23→04:49)
[2016-10-18] MEDS: SUCRALFATE 1 GM TAB PO SCH ×3 (00:24→12:04)
[2016-10-18 02:12] LABS: MEAN CORPUSCULAR HEMOGLOBIN 28.9 pg (27.0-33.0); MEAN CORPUSCULAR HGB CONC 33.4 g/dl (32.0-36.5); MEAN CORPUSCULAR VOLUME 86.5 fl (80.0-96.0); RED CELL DISTRIBUTION WIDTH 13.4 % (11.5-14.5); WHITE BLOOD COUNT 5.9 K/mm3 (4.0-10.0)
[2016-10-18] MEDS: NS 1,000 ML IV SCH (04:50)
[2016-10-18] MEDS ORDERED: ACETAMINOPHEN TAB 650MG DOSE (2X325MG) PO PRN (05:30)
[2016-10-18 08:41] LABS: MEAN CORPUSCULAR HEMOGLOBIN 29.2 pg (27.0-33.0); MEAN CORPUSCULAR HGB CONC 33.7 g/dl (32.0-36.5); MEAN CORPUSCULAR VOLUME 86.6 fl (80.0-96.0); RED CELL DISTRIBUTION WIDTH 13.3 % (11.5-14.5); WHITE BLOOD COUNT 5.3 K/mm3 (4.0-10.0)
[2016-10-18] MEDS ORDERED: PANTOPRAZOLE 40MG TAB (PROTONIX) PO SCH (09:00)
[2016-10-18 09:09] LABS: ANION GAP 9 MEQ/L (8-16); BLOOD UREA NITROGEN 8 MG/DL (7-18); CALCIUM LEVEL 8.6 MG/DL (8.5-10.1); CARBON DIOXIDE LEVEL 26 MEQ/L (21-32); CHLORIDE LEVEL 108 MEQ/L (98-107); CREATININE FOR GFR 0.76 MG/DL (0.55-1.02); GLOMERULAR FILTRATION RATE > 60.0 (>60); GLUCOSE, FASTING 94 MG/DL (70-105); POTASSIUM SERUM 4.2 MEQ/L (3.5-5.1); SODIUM LEVEL 143 MEQ/L (136-145)
[2016-10-18 11:41] LABS: BASO % 0.5 % (0.0-1.0); EOS # 0.4 K/mm3 (0.0-0.50); LARGE UNSTAINED CELL # 0.1 K/mm3 (0.0-0.4); LARGE UNSTAINED CELL % 1.3 % (0.0-4.0); LYMPH # 1.5 K/mm3 (1.5-4.5); LYMPH % 25.6 % (24.0-44.0); MEAN CORPUSCULAR HEMOGLOBIN 29.4 pg (27.0-33.0); MEAN CORPUSCULAR HGB CONC 34.1 g/dl (32.0-36.5); MEAN CORPUSCULAR VOLUME 86.1 fl (80.0-96.0); MONO # 0.2 K/mm3 (0.0-0.8); MONO % 4.2 % (0.0-5.0); NEUTROPHILS # 3.3 K/mm3 (1.8-7.7); NEUTROPHILS % 60.4 % (36.0-66.0); PLATELET COUNT, AUTOMATED 261 k/mm3 (150-450); RED CELL DISTRIBUTION WIDTH 13.3 % (11.5-14.5); WHITE BLOOD COUNT 5.5 K/mm3 (4.0-10.0)
[2016-10-18] MEDS ORDERED: MIRA3350 PO (12:24)
[2016-10-18] MEDS ORDERED: PROT1TAB2 PO (12:24)
--- NOTE | 2016-10-18 20:19 | DSES ---
DATE OF ADMISSION: 10/17/2016 DATE OF DISCHARGE: 10/18/2016 ATTENDING PHYSICIAN: Dr. Matthias Huitron PRIMARY CARE PHYSICIAN: Dr. Serafin Martins REFERRING PHYSICIAN: None. CONSULTING PHYSICIAN: Dr. Smith. CONDITION ON DISCHARGE: Stable. FINAL DIAGNOSIS: Acute blood loss anemia, possibly secondary to upper gastrointestinal bleed. PROCEDURES: Upper GI endoscopy performed by Dr. Smith on 10/17/2016. HISTORY OF PRESENT ILLNESS: The patient is a 31-year-old female with a past medical history significant for peptic ulcer, seen in the emergency room on Thursday and placed on Carafate for abdominal pain. She was seen by her primary care provider on 10/15/2016, and was placed on Protonix daily and Carafate. From Thursday to today she reports abdominal pain, worsening with vomiting and bright red blood with clots. Today, she noted that she had not tolerated liquids related to worsening abdominal pain. Denies fevers, chills, weakness, fatigue, headache, chest pain, shortness of breath, cough, or palpitations. HOSPITAL COURSE: 1. Upper GI bleed. The patient presented with bright red bleeding from upper GI source. She had an endoscopy performed by Dr. Smith on 10/17/2016, which revealed normal esophagus, gastric body and duodenum. The patient was started on Protonix drip and was discharged home with Protonix twice a day and she is to continue with Carafate. She was advised to followup with her primary care provider and managed care coordinator within the next 7 days. 2. History of irritable bowel syndrome. 3. History of endometriosis. 4. Chronic pain. 5. Anxiety and depression. 6. Status post hysterectomy. 7. Deep vein thrombosis (DVT) prophylaxis. She was on sequential compression device (SCD). DISCHARGE MEDICATIONS: The patient is being discharged home on the following medications: - alprazolam 0.5 mg by mouth twice a day as needed for anxiety - Estradiol 2 mg by mouth at night - Zofran 4 mg by mouth every 4 hours as needed for nausea - Percocet one tablet by mouth every 6 hours as needed for pain - Protonix 40 mg by mouth daily - sertraline 200 mg by mouth at night - sucralfate 1 gram by mouth before food and nightly - tizanidine 4 mg by mouth at night New prescriptions provided were: Protonix 40 mg by mouth twice a day, polyethylene glycol 17 grams by mouth daily as needed for constipation. DISCHARGE INSTRUCTIONS: The patient was advised to followup with her primary care provider and managed care coordinator within the next 7 days. She has been advised to remain compliant with treatment and medications and to return to the emergency room if she experiences any problems. Time spent on discharge: 35 minutes.
[2016-10-19] MEDS ORDERED: PANTOPRAZOLE 40MG TAB (PROTONIX) PO SCH (09:00)
--- NOTE | 2016-10-19 18:19 | EDDOCDS ---
Nurse's Notes [facility] Name: Alessia Huff Age: 31 yrs Sex: Female : 1985 Arrival Date: 10/17/2016 Time: 12:42 Bed I3 / M3 Private MD: Selene Martins E Diagnosis: Acute gastritis with bleeding Presentation: 10/17 12:46 Presenting complaint: Patient states: Vomiting with clots of blood, dark stools this ck1 morning. Seen here on Thursday for abdominal pain, states she was diagnosed with and "ulcer". Risk factors: the patient reports no vaginal bleeding. Adult Sepsis Screening: The patient does not have new or worsening altered mentation. Patient's respiratory rate is less than 22. Systolic blood pressure is greater than 100. Patient has a qSOFA score of 0- Negative Sepsis Screen. Suicide/Homicide risk assessment- the patient denies having any suicidal and/or homicidal ideations and does not present with any other emotional, behavioral or mental health complaints. Status: The patient is a dependent. Transition of care: patient was not received from another setting of care. 12:46 Acuity: LORENZO Level 3 ck1 12:46 Method Of Arrival: Walkin/Carried/Asstd ck1 Triage Assessment: 12:50 General: Appears uncomfortable, Behavior is appropriate for age, cooperative. Pain: ck1 Location: abdomen Pain currently is 6 out of 10 on a pain scale. HIV screening NA for this visit Offered previously. GI: Abdomen is obese, Reports nausea, vomiting. Derm: Skin is intact, is healthy with good turgor, Skin is pink, warm & dry. Musculoskeletal: Circulation, motion, and sensation intact Range of motion intact in all extremities. CLINICAL PHARMACOLOGIST: 12:50 LMP N/A - Hysterectomy ck1 Historical: - Allergies: Morphine (Chest pain, SOB, itching); Suprax (Hives); - Home Meds: 1. Carafate Oral 4 times per day (Last dose: 10/17/2016 08:30) 2. Protonix Oral once daily (Last dose: 10/17/2016 08:00) 3. Zofran (as hydrochloride) 4 mg Oral tab PRN (Last dose: 10/17/2016 11:00) 4. estradiol 2 mg Oral tab 2 tab once daily 5. oxycodone 5 mg Oral tab 3 times per day (Last dose: 10/16/2016 20:00) 6. Xanax 0.5 mg Oral tab 1 tab as needed 7. Zanaflex 4 mg Oral tab 1 tab every 8 hours 8. Zoloft 100 mg Oral tab 2 tabs once daily - PMHx: Anxiety; Endometriosis; IBS; ulcers; - PSHx: laproscopy X 8; Hysterectomy; Hernia repair- Umbilical; Cholecystectomy; Atrial septal defect repair; cystocele rupture repair; Laparoscopy; - Social history: Smoking status: Patient states was never smoker of tobacco. No barriers to communication noted, The patient speaks fluent Vietnamese, Speaks appropriately for age. - Family history: Not pertinent. - : The pt / caregiver states he / she is not on anticoagulants. Home medication list is obtained from [employer] import data. - Exposure Risk Screening:: None identified. Screenin:15 Screening information is obtained from the patient. Fall risk: No risks identified. srm Assistance ADL's: requires no assistance with activities of daily living. Abuse/DV Screen: The patient / caregiver reports he/she is: not in a situation that causes fear, pain or injury. Nutritional screening: No deficits noted. Advance Directives: There is no active DNR order. home support is adequate. Assessment: 14:00 General: Appears in no apparent distress, Behavior is appropriate for age, cooperative. srm Neurological: No deficits noted. Cardiovascular: No deficits noted. Respiratory: Airway is patent Respiratory effort is even, unlabored, Breath sounds are clear bilaterally. GI: Abdomen is non- distended obese, Bowel sounds present X 4 quads. Abd is soft X 4 quads Abd is tender to palpation X 4 quads. Derm: No deficits noted. 15:00 General: Appears in no apparent distress, medicated per order. . srm 16:30 General: Appears in no apparent distress, Behavior is appropriate for age, cooperative. srm Neurological: No deficits noted. EENT: No deficits noted. Respiratory: Airway is patent Respiratory effort is even, unlabored. 16:31 GI: Abdomen is non- distended Bowel sounds present X 4 quads. Abd is tender to srm palpation X 4 quads. 17:10 General: Appears in no apparent distress, comfortable, Behavior is appropriate for age, cjh cooperative, no changes from previous assessments, patient denies needs at this time and is awaiting admission. 17:15 General: Appears in no apparent distress, Behavior is appropriate for age, cooperative. [facility] [place] Neurological: No deficits noted. Cardiovascular: No deficits noted. Respiratory: No deficits noted. GI: Denies nausea. Vital Signs: 12:45 BP 121 / 79; Pulse 92; Resp 18 S; Temp 98.2(O); Pulse Ox 97% on R/A; Weight 77.11 kg gr2 (R); Height 5 ft. 1 in. (154.94 cm) (R); Pain 7/10; 16:24 BP 123 / 88; Pulse 75; Resp 18; Temp 98.7; Pulse Ox 98% ; Pain 6/10; jlf 17:14 BP 116 / 70; Pulse 86; Resp 18; Temp 99.1(O); Pulse Ox 98% ; Pain 4/10; srm 12:45 Body Mass Index 32.12 (77.11 kg, 154.94 cm) gr2 Vitals: 12:45 Log In Time: October 17, 2016 at 12:45. gr2 ED Course: 12:44 Patient visited by Shana Bello. gr2 12:44 Selene Martins is Private Physician. gr2 12:44 Patient moved to Waiting gr2 12:46 Patient visited by Shana Bello. gr2 12:46 Patient moved to Pre RCE gr2 12:48 Triage Initiated ck1 13:16 Patient moved to Triage 1 ttb 13:17 [facility] ke 13:17 Patient visited by Gilberto Robertson FNP. ke 13:17 Patient visited by Gilberto Robertson FNP. ke 13:35 Patient moved to I3 / M3 jjr 13:39 Patient visited by Sofie Durham PCA. jlf 13:56 The patient / caregiver is instructed regarding the plan of care and ED course. srm Accompanied by Family Member, Patient has correct armband on for positive identification. Placed in gown. Bed in low position. Call light in reach. Side rails up X 1. 13:56 Inserted saline lock: 20 gauge in right antecubital area and blood collected. [place] [facility] [place] tolerated the procedure well. 14:01 Patient visited by Frida Barton RN. [facility] [place] 14:27 CT ABD & PELVIS: No Contrast Returned. EDMS 14:31 Patient visited by Gilberto oRbertson FNP. ke 14:42 Patient visited by Sofie Durham PCA. jlf 14:48 [facility] Payment Agreement was scanned into [employer] and attached to record. lg 14:55 Apoorva Collier sales administrator. ys2 15:18 Patient visited by Gilberto Robertson FNP. ke 15:20 Apoorva Collier is Hospitalizing Provider. ke 16:24 Patient visited by Sofie Durham PCA. jlf 16:25 Patient visited by Sofie Durham PCA. jlf 16:30 report called pierre little on peds. srm 16:31 Patient visited by Frida Barton, KAYLA. srm 17:08 Patient visited by Frida Barton, KAYLA. srm 17:15 No procedures done that require assistance. srm 10/18 11:31 T-Sheet-- Draft Copy was scanned into [employer] and attached to record. gb Administered Medications: 10/17 13:56 Drug: NS 0.9% 1000 ml [sodium chloride 0.9 % intravenous solution] Route: IV; Rate: srm bolus; Site: right antecubital; 13:57 Drug: Ondansetron 4 mg [ondansetron HCl 2 mg/mL intravenous solution (2 mL)] Route: srm IVP; Site: right antecubital; 13:57 Drug: Sucralfate 1 grams [sucralfate 1 gram tablet (1 tabs)] Route: PO; srm 13:59 Drug: pantoprazole 80 mg [pantoprazole 40 mg intravenous solution] Route: IV; Rate: srm bolus; Site: right antecubital; 14:37 Not Given (Other Intervention Used; other used): morphine 2 mg IVP every 15 minutes; ke Document pain score/vitals after each dose (Hold if SBP < 90mmHg) x3 14:54 Drug: Dilaudid - HYDROmorphone 0.5 mg [hydromorphone 1 mg/mL injection syringe (0.5 cjh mL)] Route: IVP; Site: right antecubital; 16:38 Drug: Metoclopramide 10 mg [metoclopramide 5 mg/mL injection solution] Route: IV; Rate: jjr 40 mg/hr; Infused Over: 15 mins; Site: right antecubital; Delivery: Syringe pump; 17:14 Follow up: Response: Nausea is resolved srm 16:38 Drug: Dilaudid - HYDROmorphone 0.5 mg [hydromorphone 1 mg/mL injection syringe (0.5 jjr mL)] Route: IVP; Site: right antecubital; 17:14 Follow up: BP 116 / 70; Pulse 86 bpm; Resp 18 bpm; Temp 99.1 Oral; Pulse Ox 98% ; Pain srm 4/10 Adult Intake: 17:15 IV: 1000.00ml (NS); Total: 1000.00ml. srm Order Results: Lab Order: Amylase; SPEC'M 10/17/16 13:47 Test: AMYLASE; Value: 40; Range: 25-115; Units: U/L; Status: F Lab Order: Basic Metabolic Profile; SPEC'M 10/17/16 13:47 Test: GLUCOSE, FASTING; Value: 108; Range: 70-105; Abnormal: Above high normal; Units: MG/DL; Status: F Test: BLOOD UREA NITROGEN; Value: 9; Range: 7-18; Units: MG/DL; Status: F Test: CREATININE FOR GFR; Value: 0.89; Range: 0.55-1.02; Units: MG/DL; Status: F Test: GLOMERULAR FILTRATION RATE; Value: > 60.0; Range: >60; Status: F Test: SODIUM LEVEL; Value: 141; Range: 136-145; Units: MEQ/L; Status: F Test: POTASSIUM SERUM; Value: 3.6; Range: 3.5-5.1; Units: MEQ/L; Status: F Test: CHLORIDE LEVEL; Value: 104; Range: 98-107; Units: MEQ/L; Status: F Test: CARBON DIOXIDE LEVEL; Value: 27; Range: 21-32; Units: MEQ/L; Status: F Test: ANION GAP; Value: 10; Range: 8-16; Units: MEQ/L; Status: F Test: CALCIUM LEVEL; Value: 8.8; Range: 8.5-10.1; Units: MG/DL; Status: F Test Note: ; Units are mL/min/1.73 m2 Chronic Kidney Disease Staging per NKF: Stage I & II GFR >=60 Normal to Mildly Decreased Stage III GFR 30-59 Moderately Decreased Stage IV GFR 15-29 Severely Decreased Stage V GFR <15 Very Little GFR Left ESRD GFR <15 on GENERAL OFFICE WORKER Lab Order: CBC with Diff; SPEC'M 10/17/16 13:47 Test: WHITE BLOOD COUNT; Value: 6.8; Range: 4.0-10.0; Units: K/mm3; Status: F Test: RED BLOOD COUNT; Value: 4.53; Range: 4.00-5.40; Units: M/mm3; Status: F Test: HEMOGLOBIN; Value: 13.3; Range: 12.0-16.0; Units: g/dl; Status: F Test: HEMATOCRIT; Value: 38.9; Range: 36.0-47.0; Units: %; Status: F Test: MEAN CORPUSCULAR VOLUME; Value: 85.9; Range: 80.0-96.0; Units: fl; Status: F Test: MEAN CORPUSCULAR HEMOGLOBIN; Value: 29.4; Range: 27.0-33.0; Units: pg; Status: F Test: MEAN CORPUSCULAR HGB CONC; Value: 34.2; Range: 32.0-36.5; Units: g/dl; Status: F Test: RED CELL DISTRIBUTION WIDTH; Value: 13.3; Range: 11.5-14.5; Units: %; Status: F Test: PLATELET COUNT, AUTOMATED; Value: 287; Range: 150-450; Units: k/mm3; Status: F Test: NEUTROPHILS %; Value: 53.3; Range: 36.0-66.0; Units: %; Status: F Test: LYMPH %; Value: 32.4; Range: 24.0-44.0; Units: %; Status: F Test: MONO %; Value: 3.3; Range: 0.0-5.0; Units: %; Status: F Test: EOS %; Value: 7.4; Range: 0.0-3.0; Abnormal: Above high normal; Units: %; Status: F Test: BASO %; Value: 0.7; Range: 0.0-1.0; Units: %; Status: F Test: LARGE UNSTAINED CELL %; Value: 2.8; Range: 0.0-4.0; Units: %; Status: F Test: NEUTROPHILS #; Value: 3.6; Range: 1.8-7.7; Units: K/mm3; Status: F Test: LYMPH #; Value: 2.2; Range: 1.5-4.5; Units: K/mm3; Status: F Test: MONO #; Value: 0.2; Range: 0.0-0.8; Units: K/mm3; Status: F Test: EOS #; Value: 0.5; Range: 0.0-0.50; Units: K/mm3; Status: F Test: BASO #; Value: 0.0; Range: 0.0-0.2; Units: K/mm3; Status: F Test: LARGE UNSTAINED CELL #; Value: 0.2; Range: 0.0-0.4; Units: K/mm3; Status: F Lab Order: Lipase; [facility] 10/17/16 13:47 Test: LIPASE; Value: 105; Range: 73-393; Units: U/L; Status: F Lab Order: Liver Profile; [facility] 10/17/16 13:47 Test: AST/SGOT; Value: 12; Range: 15-37; Abnormal: Below low normal; Units: U/L; Status: F Test: ALT/SGPT; Value: 20; Range: 12-78; Units: U/L; Status: F Test: ALKALINE PHOSPHATASE; Value: 61; Range: 45-117; Units: U/L; Status: F Test: BILIRUBIN,TOTAL; Value: 0.2; Range: 0.2-1.0; Units: MG/DL; Status: F Test: BILIRUBIN,DIRECT; Value: < 0.1; Range: 0.0-0.2; Units: MG/DL; Status: F Test: TOTAL PROTEIN; Value: 7.8; Range: 6.4-8.2; Units: GM/DL; Status: F Test: ALBUMIN; Value: 3.6; Range: 3.2-5.2; Units: GM/DL; Status: F Test: ALBUMIN/GLOBULIN RATIO; Value: 0.86; Range: 1.00-1.93; Abnormal: Below low normal; Status: F Lab Order: Prothrombin Time Profile\\E\\INR; [facility] 10/17/16 13:47 Test: PROTHROMBIN TIME; Value: 13.5; Range: 12.3-14.5; Units: SECONDS; Status: F Test: INR; Value: 1.02; Status: F Test Note: ; THERAPUTIC HUMAN INR VALUES INDICATIONS NORMAL RANGES PROPHYLAXIS/TREATMENT OF: VENOUS THROMBOSIS 2.0-3.0 PULMONARY EMBOLISM 2.0-3.0 PREVENTION OF SYSTEMIC EMBOLISM FROM: TISSUE HEART VALVES 2.0-3.0 ACUTE MYOCARDIAL INFARCTION 2.0-3.0 VALVULAR HEART DISEASE 2.0-3.0 ATRIAL FIBRILLATION 2.0-3.0 MECHANICAL VALVES(HIGH RISK) 2.5-3.5 RECURRENT MYOCARDIAL INFARCTION 2.5-3.5 Lab Order: TYPE & SCREEN; SPEC'M 10/17/16 13:47 Test: BLOOD TYPE; Value: O POS; Status: F Test: AB SCREEN (INDIRECT BRANDY)VIS; Value: NEGATIVE; Status: F Radiology Order: CT ABD & PELVIS: No Contrast Test: CT ABD & PELVIS: No Contrast REASON FOR EXAMINATION: hematemesis; Clinical: Abdominal pain and hematemesis.; ; Comparison: 10/11/2016.; ; Findings:; Lung bases clear. Visualized heart and pericardium normal.; ; Liver, spleen, pancreas, bilateral adrenal glands and kidneys are normal for; noncontrast evaluation. The patient is status post cholecystectomy and; hysterectomy with midline anterior abdominal scar noted. The enteric system; including stomach, small and large bowel is without obstruction or acute; inflammatory process pelvis demonstrates normal bladder. No pelvic fluid or; ascites. No adenopathy. No free air. Abdominal aorta normal caliber without; aneurysm. Musculoskeletal structures without focal osseous abnormality.; ; Impression:; Essentially normal noncontrast CT of the abdomen and pelvis.; No acute pathology noted.; ; ; Signed by; Edis Verde MD 10/17/2016 02:01 P; Outcome: 15:23 Decision to Hospitalize by Provider. ke 17:15 Discharge Assessment: Patient awake, alert and oriented x 3. No cognitive and/or srm functional deficits noted. Patient verbalized understanding of disposition instructions. patient administered narcotics - yes. Patient was admitted to the hospital or transferred to another facility. The following High Risk Discharge criteria are identified: None. Admitted to Pediatrics accompanied by tech, via stretcher, with chart. Condition: stable. CT Study completed. Property :Personal belongings accompany Pt. 17:18 Patient left the ED. srm Signatures: Dispatcher [employer] EDMS Frida Barton, RN RN srm Adrien, Maria, Reg Reg gb Goran Harmon, Reg Reg lg Gilberto Robertson, SMALL PRODUCTS II ASSEMBLER SMALL PRODUCTS II ASSEMBLER rob Thao,Mariana,RN RN ck1 Megan Bello, RN RN Ksenia Patton,RN RN Odalis Leon, RN RN Shana King gr2 Sofie Durham, TRISHA SDET jlf Nando, Guerin ys2 Chart Complete MTDD
--- NOTE | 2016-10-19 18:19 | EDDOCDS ---
Physician Documentation [facility] Name: Alessia Huff Age: 31 yrs Sex: Female : 1985 Arrival Date: 10/17/2016 Time: 12:42 Bed I3 / M3 Private MD: Selene Martins E Disposition: 10/17/16 15:23 Hospitalization ordered by Apoorva Collier for Inpatient Admission. Preliminary diagnosis is Acute gastritis with bleeding. - Bed requested for M PED. - Status is Inpatient Admission. srm - Condition is Stable. - Problem is an ongoing problem. - Symptoms are unchanged. Historical: - Allergies: Morphine (Chest pain, SOB, itching); Suprax (Hives); - Home Meds: 1. Carafate Oral 4 times per day (Last dose: 10/17/2016 08:30) 2. Protonix Oral once daily (Last dose: 10/17/2016 08:00) 3. Zofran (as hydrochloride) 4 mg Oral tab PRN (Last dose: 10/17/2016 11:00) 4. estradiol 2 mg Oral tab 2 tab once daily 5. oxycodone 5 mg Oral tab 3 times per day (Last dose: 10/16/2016 20:00) 6. Xanax 0.5 mg Oral tab 1 tab as needed 7. Zanaflex 4 mg Oral tab 1 tab every 8 hours 8. Zoloft 100 mg Oral tab 2 tabs once daily - PMHx: Anxiety; Endometriosis; IBS; ulcers; - PSHx: laproscopy X 8; Hysterectomy; Hernia repair- Umbilical; Cholecystectomy; Atrial septal defect repair; cystocele rupture repair; Laparoscopy; - Social history: Smoking status: Patient states was never smoker of tobacco. No barriers to communication noted, The patient speaks fluent Kuwaiti, Speaks appropriately for age. - Family history: Not pertinent. - : The pt / caregiver states he / she is not on anticoagulants. Home medication list is obtained from [employer] import data. - Exposure Risk Screening:: None identified. ENDOSCOPY TECHNICIAN: 10/17 12:50 LMP N/A - Hysterectomy ck1 Vital Signs: 12:45 BP 121 / 79; Pulse 92; Resp 18 S; Temp 98.2(O); Pulse Ox 97% on R/A; Weight 77.11 kg / gr2 170 lbs (R); Height 5 ft. 1 in. (154.94 cm) (R); Pain 7/10; 16:24 BP 123 / 88; Pulse 75; Resp 18; Temp 98.7; Pulse Ox 98% ; Pain 6/10; jlf 17:14 BP 116 / 70; Pulse 86; Resp 18; Temp 99.1(O); Pulse Ox 98% ; Pain 4/10; srm 12:45 Body Mass Index 32.12 (77.11 kg, 154.94 cm) gr2 MDM: 13:28 NS 0.9% 1000 ml IV at bolus once ordered. ke 13:28 Ondansetron 4 mg IVP once ordered. ke 13:28 IV Saline Lock ordered. ke 13:28 Undress patient appropriately for examination ordered. ke 13:28 pantoprazole 80 mg IV at bolus once ordered. ke 13:28 Sucralfate 1 grams PO once ordered. ke 13:29 Amylase Ordered. EDMS 13:29 Basic Metabolic Profile Ordered. EDMS 13:29 CBC with Diff Ordered. EDMS 13:29 Lipase Ordered. EDMS 13:29 Liver Profile Ordered. EDMS 13:29 Prothrombin Time Profile\E\INR Ordered. EDMS 13:29 CT ABD & PELVIS: No Contrast Ordered. EDMS 13:29 NOTHING BY MOUTH+DIET ordered. EDMS 13:37 BED REQUEST+ADM ordered. EDMS 14:20 Basic Metabolic Profile Reviewed. ke 14:20 CBC with Diff Reviewed. ke 14:20 Liver Profile Reviewed. ke 14:20 Amylase Reviewed. ke 14:20 Lipase Reviewed. ke 14:20 Prothrombin Time Profile\E\INR Reviewed. ke 14:31 morphine 2 mg IVP every 15 minutes; Document pain score/vitals after each dose (Hold if ke SBP < 90mmHg) x3 ordered. 14:33 Financial registration complete. lg 14:37 Dilaudid - HYDROmorphone 0.5 mg IVP once ordered. ke 14:48 [facility] Payment Agreement was scanned into [employer] and attached to record. lg 15:07 Admission / Observation Status ordered. EDMS 15:23 TYPE & SCREEN Ordered. EDMS 15:23 NPO DIET ordered. EDMS 15:23 COMPLETE BLOOD COUNT Ordered. EDMS 16:27 Metoclopramide 10 mg IV at 40 mg/hr once over 15 mins ordered. ke 16:27 Dilaudid - HYDROmorphone 0.5 mg IVP once ordered. rob 10/18 11:31 T-Sheet-- Draft Copy was scanned into [employer] and attached to record. Administered Medications: 10/17 13:56 Drug: NS 0.9% 1000 ml [sodium chloride 0.9 % intravenous solution] Route: IV; Rate: srm bolus; Site: right antecubital; 13:57 Drug: Ondansetron 4 mg [ondansetron HCl 2 mg/mL intravenous solution (2 mL)] Route: srm IVP; Site: right antecubital; 13:57 Drug: Sucralfate 1 grams [sucralfate 1 gram tablet (1 tabs)] Route: PO; srm 13:59 Drug: pantoprazole 80 mg [pantoprazole 40 mg intravenous solution] Route: IV; Rate: srm bolus; Site: right antecubital; 14:37 Not Given (Other Intervention Used; other used): morphine 2 mg IVP every 15 minutes; Document pain score/vitals after each dose (Hold if SBP < 90mmHg) x3 14:54 Drug: Dilaudid - HYDROmorphone 0.5 mg [hydromorphone 1 mg/mL injection syringe (0.5 cjh mL)] Route: IVP; Site: right antecubital; 16:38 Drug: Metoclopramide 10 mg [metoclopramide 5 mg/mL injection solution] Route: IV; Rate: jjr 40 mg/hr; Infused Over: 15 mins; Site: right antecubital; Delivery: Syringe pump; 17:14 Follow up: Response: Nausea is resolved srm 16:38 Drug: Dilaudid - HYDROmorphone 0.5 mg [hydromorphone 1 mg/mL injection syringe (0.5 jjr mL)] Route: IVP; Site: right antecubital; 17:14 Follow up: BP 116 / 70; Pulse 86 bpm; Resp 18 bpm; Temp 99.1 Oral; Pulse Ox 98% ; Pain srm 4/10 Adult Signatures: Dispatcher [employer] EDMS Frida Barton, RN RN srm Maria Jurado, Reg Reg gb Goran Harmon, Reg Reg lg Gilberto Robertson, TECHNOLOGY INSTRUCTOR TECHNOLOGY INSTRUCTOR Mariana OrtizRN RN ck1 Sofie Durham, AFTERNOON BABYSITTER AFTERNOON BABYSITTER jlf Megan Bello RN, Jane RN [facility] The chart was reviewed and I authenticate all verbal orders and agree with the evaluation and treatment provided.Attachments: 14:48 [facility] Payment Agreement lg 10/18 11:31 T-Sheet-- Draft Copy gb Chart Complete MTDD
--- NOTE | 2016-10-19 18:19 | EDDOCDS ---
Physician Documentation [facility] Name: Alessia Huff Age: 31 yrs Sex: Female : 1985 Arrival Date: 10/17/2016 Time: 12:42 Bed I3 / M3 Private MD: Selene Martins E Disposition: 10/17/16 15:23 Hospitalization ordered by Apoorva Collier for Inpatient Admission. Preliminary diagnosis is Acute gastritis with bleeding. - Bed requested for M PED. - Status is Inpatient Admission. srm - Condition is Stable. - Problem is an ongoing problem. - Symptoms are unchanged. Historical: - Allergies: Morphine (Chest pain, SOB, itching); Suprax (Hives); - Home Meds: 1. Carafate Oral 4 times per day (Last dose: 10/17/2016 08:30) 2. Protonix Oral once daily (Last dose: 10/17/2016 08:00) 3. Zofran (as hydrochloride) 4 mg Oral tab PRN (Last dose: 10/17/2016 11:00) 4. estradiol 2 mg Oral tab 2 tab once daily 5. oxycodone 5 mg Oral tab 3 times per day (Last dose: 10/16/2016 20:00) 6. Xanax 0.5 mg Oral tab 1 tab as needed 7. Zanaflex 4 mg Oral tab 1 tab every 8 hours 8. Zoloft 100 mg Oral tab 2 tabs once daily - PMHx: Anxiety; Endometriosis; IBS; ulcers; - PSHx: laproscopy X 8; Hysterectomy; Hernia repair- Umbilical; Cholecystectomy; Atrial septal defect repair; cystocele rupture repair; Laparoscopy; - Social history: Smoking status: Patient states was never smoker of tobacco. No barriers to communication noted, The patient speaks fluent Maldivian, Speaks appropriately for age. - Family history: Not pertinent. - : The pt / caregiver states he / she is not on anticoagulants. Home medication list is obtained from [employer] import data. - Exposure Risk Screening:: None identified. 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 1 in. (154.94 cm) (R); Pain 7/10; 16:24 BP 123 / 88; Pulse 75; Resp 18; Temp 98.7; Pulse Ox 98% ; Pain 6/10; jlf 17:14 BP 116 / 70; Pulse 86; Resp 18; Temp 99.1(O); Pulse Ox 98% ; Pain 4/10; srm 12:45 Body Mass Index 32.12 (77.11 kg, 154.94 cm) gr2 MDM: 13:28 NS 0.9% 1000 ml IV at bolus once ordered. ke 13:28 Ondansetron 4 mg IVP once ordered. ke 13:28 IV Saline Lock ordered. ke 13:28 Undress patient appropriately for examination ordered. ke 13:28 pantoprazole 80 mg IV at bolus once ordered. ke 13:28 Sucralfate 1 grams PO once ordered. ke 13:29 Amylase Ordered. EDMS 13:29 Basic Metabolic Profile Ordered. EDMS 13:29 CBC with Diff Ordered. EDMS 13:29 Lipase Ordered. EDMS 13:29 Liver Profile Ordered. EDMS 13:29 Prothrombin Time Profile\E\INR Ordered. EDMS 13:29 CT ABD & PELVIS: No Contrast Ordered. EDMS 13:29 NOTHING BY MOUTH+DIET ordered. EDMS 13:37 BED REQUEST+ADM ordered. EDMS 14:20 Basic Metabolic Profile Reviewed. ke 14:20 CBC with Diff Reviewed. ke 14:20 Liver Profile Reviewed. ke 14:20 Amylase Reviewed. ke 14:20 Lipase Reviewed. ke 14:20 Prothrombin Time Profile\E\INR Reviewed. ke 14:31 morphine 2 mg IVP every 15 minutes; Document pain score/vitals after each dose (Hold if ke SBP < 90mmHg) x3 ordered. 14:33 Financial registration complete. lg 14:37 Dilaudid - HYDROmorphone 0.5 mg IVP once ordered. ke 14:48 [facility] [place] was scanned into [employer] and attached to record. lg 15:07 Admission / Observation Status ordered. EDMS 15:23 TYPE & SCREEN Ordered. EDMS 15:23 NPO DIET ordered. EDMS 15:23 COMPLETE BLOOD COUNT Ordered. EDMS 16:27 Metoclopramide 10 mg IV at 40 mg/hr once over 15 mins ordered. ke 16:27 Dilaudid - HYDROmorphone 0.5 mg IVP once ordered. rob 10/18 11:31 T-Sheet-- Draft Copy was scanned into [employer] and attached to record. Administered Medications: 10/17 13:56 Drug: NS 0.9% 1000 ml [sodium chloride 0.9 % intravenous solution] Route: IV; Rate: srm bolus; Site: right antecubital; 13:57 Drug: Ondansetron 4 mg [ondansetron HCl 2 mg/mL intravenous solution (2 mL)] Route: srm IVP; Site: right antecubital; 13:57 Drug: Sucralfate 1 grams [sucralfate 1 gram tablet (1 tabs)] Route: PO; srm 13:59 Drug: pantoprazole 80 mg [pantoprazole 40 mg intravenous solution] Route: IV; Rate: srm bolus; Site: right antecubital; 14:37 Not Given (Other Intervention Used; other used): morphine 2 mg IVP every 15 minutes; Document pain score/vitals after each dose (Hold if SBP < 90mmHg) x3 14:54 Drug: Dilaudid - HYDROmorphone 0.5 mg [hydromorphone 1 mg/mL injection syringe (0.5 cjh mL)] Route: IVP; Site: right antecubital; 16:38 Drug: Metoclopramide 10 mg [metoclopramide 5 mg/mL injection solution] Route: IV; Rate: jjr 40 mg/hr; Infused Over: 15 mins; Site: right antecubital; Delivery: Syringe pump; 17:14 Follow up: Response: Nausea is resolved srm 16:38 Drug: Dilaudid - HYDROmorphone 0.5 mg [hydromorphone 1 mg/mL injection syringe (0.5 jjr mL)] Route: IVP; Site: right antecubital; 17:14 Follow up: BP 116 / 70; Pulse 86 bpm; Resp 18 bpm; Temp 99.1 Oral; Pulse Ox 98% ; Pain srm 4/10 Adult Signatures: Dispatcher [employer] EDMS Frida Barton, RN RN srm Maria Jurado, Reg Reg gb Goran Harmon, Reg Reg lg Gilberto Robertson, CAMERA REPAIR TECHNICIAN CAMERA REPAIR TECHNICIAN Mariana OrtizRN RN ck1 Sofie Durham, ENGINE BUILDER ENGINE BUILDER jlf Megan Bello RN, Jane RN [facility] The chart was reviewed and I authenticate all verbal orders and agree with the evaluation and treatment provided.Attachments: 14:48 [facility] Payment Agreement lg 10/18 11:31 T-Sheet-- Draft Copy gb Chart Complete MTDD
== END 2016-10-18 13:18 | disposition home or self-care (01) ==
LOC: M ED 12:42 → M ED INP 15:04 → M PED 17:19
PROVIDERS: ADMIT Internal Medicine; ATTEND Internal Medicine
DX: D62 Acute posthemorrhagic anemia (principal); K92.2 Gastrointestinal hemorrhage, unspecified; K58.8 Other irritable bowel syndrome; N80.8 Other endometriosis; G89.29 Other chronic pain; F32.9 Major depressive disorder, single episode, unspecified; F41.9 Anxiety disorder, unspecified; Z79.899 Other long term (current) drug therapy
CPT/HCPCS: 36415; 43239; 74176; 80048; 80076; 82150; 83690; 85025; 85027; 85610; 86850; 86900; 86901; 88305; 96374; 96375; 96376; 99285; C9113; J1170; J2405; J2765

== ENCOUNTER 2016-12-17 19:20 | Emergency (ER) | payer OTHER ==
[~2016-12-17] VITALS: Ht 154.9 cm; Wt 81.6 kg
[~2016-12-17 19:20] MED LIST: CARA1TAB2 PO; ESTR2TA PO; MIRA3350 PO; OXYC1TAB23 PO; PANT40TA2 PO; PROT1TAB2 PO; XANA0.5T PO; ZANA4CAP PO; ZOFR4TAB3 PO; ZOLO100T PO
[2016-12-17] MEDS ORDERED: HYDROmorphone HCL 1 MG/ML SYRINGE (J1170) IM ONE (21:15)
[2016-12-17] MEDS ORDERED: ONDANSETRON 4 MG ORAL DISINTEGRATING TAB (S0181) PO ONE (21:15)
[2016-12-17 21:41] VITALS: BP 128/92
== END 2016-12-17 21:44 | disposition home or self-care (01) ==
LOC: M ED 20:24
DX: G89.29 Other chronic pain (principal); R10.2 Pelvic and perineal pain; F41.9 Anxiety disorder, unspecified; F32.9 Major depressive disorder, single episode, unspecified; N80.9 Endometriosis, unspecified; Z79.899 Other long term (current) drug therapy; Z88.5 Allergy status to narcotic agent; Z88.1 Allergy status to other antibiotic agents
CPT/HCPCS: 96372; 99282; J1170

== ENCOUNTER 2016-12-19 07:37 | Emergency (ER) | payer OTHER ==
[~2016-12-19] VITALS: Ht 154.9 cm; Wt 81.6 kg
[2016-12-19] MEDS ORDERED: HYDROmorphone HCL 1 MG/ML SYRINGE (J1170) IM ONE (08:15)
[2016-12-19] MEDS ORDERED: ONDANSETRON 4 MG ORAL DISINTEGRATING TAB (S0181) PO ONE (08:15)
[2016-12-19 08:38] VITALS: BP 113/68
== END 2016-12-19 08:52 | disposition home or self-care (01) ==
LOC: M ED 08:22
DX: G89.29 Other chronic pain (principal); R10.2 Pelvic and perineal pain; Z79.899 Other long term (current) drug therapy; Z88.5 Allergy status to narcotic agent; Z88.1 Allergy status to other antibiotic agents
CPT/HCPCS: 96372; 99282; J1170

== ENCOUNTER 2016-12-22 04:50 | Emergency (ER) | payer OTHER ==
[~2016-12-22] VITALS: Ht 154.9 cm; Wt 81.6 kg
[2016-12-22 05:57] LABS: BASO % 0.8 % (0.0-1.0); EOS # 0.4 K/mm3 (0.0-0.50); EOS % 9.1 % (0.0-3.0); LARGE UNSTAINED CELL # 0.1 K/mm3 (0.0-0.4); LARGE UNSTAINED CELL % 2.6 % (0.0-4.0); LYMPH # 1.7 K/mm3 (1.5-4.5); LYMPH % 36.8 % (24.0-44.0); MEAN CORPUSCULAR HGB CONC 33.7 g/dl (32.0-36.5); MEAN CORPUSCULAR VOLUME 86.1 fl (80.0-96.0); MONO # 0.3 K/mm3 (0.0-0.8); MONO % 6.1 % (0.0-5.0); NEUTROPHILS # 1.9 K/mm3 (1.8-7.7); NEUTROPHILS % 44.7 % (36.0-66.0); PLATELET COUNT, AUTOMATED 262 k/mm3 (150-450); RED CELL DISTRIBUTION WIDTH 13.3 % (11.5-14.5); WHITE BLOOD COUNT 4.2 K/mm3 (4.0-10.0)
[2016-12-22] MEDS ORDERED: NS 1,000 ML IV ONE (06:15)
[2016-12-22] MEDS ORDERED: KETOROLAC 30 MG/ML VIAL (J1885) IV ONE (06:15)
[2016-12-22 06:17] LABS: ALBUMIN 3.4 GM/DL (3.2-5.2); ALBUMIN/GLOBULIN RATIO 0.89 (1.00-1.93); ALKALINE PHOSPHATASE 59 U/L (45-117); ALT/SGPT 17 U/L (12-78); AMYLASE 36 U/L (25-115); ANION GAP 7 MEQ/L (8-16); AST/SGOT 11 U/L (15-37); BILIRUBIN,DIRECT < 0.1 MG/DL (0.0-0.2); BILIRUBIN,TOTAL 0.2 MG/DL (0.2-1.0); BLOOD UREA NITROGEN 10 MG/DL (7-18); CALCIUM LEVEL 8.5 MG/DL (8.5-10.1); CARBON DIOXIDE LEVEL 27 MEQ/L (21-32); CHLORIDE LEVEL 105 MEQ/L (98-107); CREATININE FOR GFR 0.91 MG/DL (0.55-1.02); GLOMERULAR FILTRATION RATE > 60.0 (>60); GLUCOSE, FASTING 96 MG/DL (70-105); POTASSIUM SERUM 3.7 MEQ/L (3.5-5.1); SODIUM LEVEL 139 MEQ/L (136-145); TOTAL PROTEIN 7.2 GM/DL (6.4-8.2)
--- NOTE | 2016-12-22 06:30 | REPUSA ---
CLINICAL HISTORY: Abdominal pain. TECHNIQUE: Multiple axial, sagittal and coronal CT images were obtained through the abdomen and pelvi s without administration of oral or IV contrast material. COMMENTS: Comparison is made to the prior exam on 10/17/2016. The liver is of uniform attenuation without mass or defect. There is no intra or extrahepatic biliary ductal dilatation. The spleen is normal. The gallbladder is surgically absent. The pancreas is of no rmal contour and attenuation characteristics. There is no evidence of adrenal mass. The kidneys are normal in size, shape and configuration. No renal or ureteral calculi are identified. There is no hydroureter or hydronephrosis. There is no evidence for appendicitis. There is no bowel wall thickening. No evidence for small or la rge bowel obstruction. There is no evidence of abdominal ascites or lymphadenopathy. There is no evidence of intrinsic or extrinsic bladder mass. There is no pelvic ascites or lymphadeno mame. Diffuse thickening of the wall of the bladder. Moderate large bowel fecal stasis. Images of the lung bases show no evidence of pleural or parenchymal mass. There are no pleural effusi ons. The bony structures are free of lytic or blastic lesions. Multilevel degenerative changes are seen in volving the thoracolumbar spine. Scattered calcifications are seen involving the aorta and major branches compatible with atherosclero sis. Fat-containing umbilical hernia without incarceration. IMPRESSION: Large bowel fecal stasis. Prior cholecystectomy. No urolithiasis is seen. Thank you for your kind referral of this patient.
[2016-12-22 07:28] VITALS: BP 112/78
== END 2016-12-22 07:30 | disposition home or self-care (01) ==
LOC: M ED 05:31
DX: R31.9 Hematuria, unspecified (principal); F32.9 Major depressive disorder, single episode, unspecified; R19.5 Other fecal abnormalities; Z79.899 Other long term (current) drug therapy; Z88.5 Allergy status to narcotic agent; Z88.1 Allergy status to other antibiotic agents
CPT/HCPCS: 74176; 80048; 80076; 81001; 82150; 83690; 85025; 87086; 96361; 96374; 99282; J1885

== ENCOUNTER 2017-01-02 07:34 | Emergency (ER) | payer OTHER ==
[~2017-01-02] VITALS: Ht 154.9 cm; Wt 81.6 kg
[2017-01-02] MEDS ORDERED: ONDANSETRON 4MG/2ML VIAL (J2405) IV ONE (08:00)
[2017-01-02] MEDS ORDERED: KETOROLAC 30 MG/ML VIAL (J1885) IV ONE (08:00)
[2017-01-02 08:34] LABS: BASO % 0.7 % (0.0-1.0); EOS # 0.4 K/mm3 (0.0-0.50); EOS % 8.3 % (0.0-3.0); LARGE UNSTAINED CELL # 0.1 K/mm3 (0.0-0.4); LYMPH # 1.7 K/mm3 (1.5-4.5); LYMPH % 31.1 % (24.0-44.0); MEAN CORPUSCULAR HEMOGLOBIN 29.8 pg (27.0-33.0); MEAN CORPUSCULAR HGB CONC 34.1 g/dl (32.0-36.5); MEAN CORPUSCULAR VOLUME 87.5 fl (80.0-96.0); MONO # 0.2 K/mm3 (0.0-0.8); MONO % 3.7 % (0.0-5.0); NEUTROPHILS # 2.8 K/mm3 (1.8-7.7); NEUTROPHILS % 54.1 % (36.0-66.0); PLATELET COUNT, AUTOMATED 244 k/mm3 (150-450); RED CELL DISTRIBUTION WIDTH 13.6 % (11.5-14.5); WHITE BLOOD COUNT 5.2 K/mm3 (4.0-10.0)
[2017-01-02 08:35] LABS: ANION GAP 11 MEQ/L (8-16); BLOOD UREA NITROGEN 12 MG/DL (7-18); CALCIUM LEVEL 9.1 MG/DL (8.5-10.1); CARBON DIOXIDE LEVEL 22 MEQ/L (21-32); CHLORIDE LEVEL 104 MEQ/L (98-107); CREATININE FOR GFR 0.87 MG/DL (0.55-1.02); GLOMERULAR FILTRATION RATE > 60.0 (>60); GLUCOSE, FASTING 95 MG/DL (70-105); POTASSIUM SERUM 3.9 MEQ/L (3.5-5.1); SODIUM LEVEL 137 MEQ/L (136-145)
[2017-01-02] MEDS ORDERED: HYDROmorphone HCL 1 MG/ML SYRINGE (J1170) IV ONE (08:45)
--- NOTE | 2017-01-02 09:23 | REP ---
CT ABDOMEN AND PELVIS WITHOUT IV CONTRAST: CT abdomen and pelvis performed without IV contrast with sagittal and coronal reconstruction images performed. Comparison made with prior study of 12/22/2016. The visualized lung bases are clear. Liver is grossly unremarkable. Patient has had a prior cholecystectomy. There is no evidence of biliary dilatation. The spleen, adrenals, pancreas and kidneys are grossly unremarkable. No renal or ureteral calculus is seen. There is no evidence of hydroureteronephrosis. There is no abdominal aortic aneurysm. There is no evidence of adenopathy. There is no free air or free fluid. I see no bowel wall thickening. I see no pelvic mass. IMPRESSION: No renal or ureteral calculus and no evidence of hydroureteronephrosis. No other evidence of acute abnormality. Signed by Ab Ballesteros MD 01/02/2017 05:16 P
[2017-01-02] MEDS ORDERED: BACT800T5 PO (09:48)
[2017-01-02] MEDS ORDERED: NAPR500T PO (09:48)
[2017-01-02 09:54] VITALS: BP 121/74
[2017-02-04] MEDS ORDERED: ALPR0.5T3 PO (09:18)
[2017-02-04] MEDS ORDERED: ONDA4TAB6 SL (09:18)
[2017-02-04] MEDS ORDERED: ESTR1TAB PO (09:18)
[2017-02-04] MEDS ORDERED: CETI10TA PO (09:18)
[2017-02-04] MEDS ORDERED: ONDA1TAB15 PO (09:18)
[2017-02-04] MEDS ORDERED: SERT-138 PO (09:18)
== END 2017-01-02 10:02 | disposition home or self-care (01) ==
LOC: M ED 08:26
DX: N39.0 Urinary tract infection, site not specified (principal); R31.9 Hematuria, unspecified
CPT/HCPCS: 74176; 80048; 81001; 81025; 85025; 86140; 87086; 96374; 96375; 99283; J1170; J1885; J2405

== ENCOUNTER → 2017-01-07 | Outpatient (REF) | payer OTHER ==
[~2017-01-07] MED LIST changes: +BACT800T5 PO; +NAPR500T PO
== END ==
LOC: M SMT 17:08
PROVIDERS: ATTEND Nurse Practitioner Family
DX: R31.9 Hematuria, unspecified (principal)

== ENCOUNTER → 2017-01-23 | Outpatient (CLI) | payer OTHER ==
[~2017-01-23] MED LIST changes: +PHEN1SUP6 PR
== END ==
LOC: M LAB 01-22 11:51
PROVIDERS: ATTEND Internal Medicine Gastroenterology
DX: R10.84 Generalized abdominal pain (principal)

== ENCOUNTER 2017-01-25 11:56 | Emergency (ER) | payer OTHER ==
[~2017-01-25] VITALS: Ht 154.9 cm; Wt 79.4 kg
[~2017-01-25 11:56] MED LIST changes: -PHEN1SUP6 PR
[2017-01-25] MEDS ORDERED: PROMETHAZINE INJ 25 MG/ML VIAL (J2550) IM ONE (12:30)
[2017-01-25] MEDS ORDERED: PHEN1SUP6 PR (13:03)
[2017-01-25 13:07] VITALS: BP 127/73
[2017-02-04] MEDS ORDERED: ALPR0.5T3 PO (09:18)
[2017-02-04] MEDS ORDERED: ONDA1TAB15 PO (09:18)
[2017-02-04] MEDS ORDERED: ESTR1TAB PO (09:18)
[2017-02-04] MEDS ORDERED: CETI10TA PO (09:18)
[2017-02-04] MEDS ORDERED: SERT-138 PO (09:18)
[2017-02-04] MEDS ORDERED: ONDA4TAB6 SL (09:18)
== END 2017-01-25 13:09 | disposition home or self-care (01) ==
LOC: M ED 12:12
DX: R10.13 Epigastric pain (principal); R11.10 Vomiting, unspecified; I73.9 Peripheral vascular disease, unspecified; K52.9 Noninfective gastroenteritis and colitis, unspecified; F33.9 Major depressive disorder, recurrent, unspecified; N80.9 Endometriosis, unspecified; Z79.899 Other long term (current) drug therapy; Z79.3 Long term (current) use of hormonal contraceptives; Z87.19 Personal history of other diseases of the digestive system; Z87.898 Personal history of other specified conditions; Z88.5 Allergy status to narcotic agent; Z88.1 Allergy status to other antibiotic agents; Z88.2 Allergy status to sulfonamides; Z88.8 Allergy status to other drugs, medicaments and biological substances

== ENCOUNTER → 2017-02-04 | Outpatient (CLI) | payer OTHER ==
[~2017-02-04] MED LIST changes: +ALPR0.5T3 PO; +CETI10TA PO; +ESTR1TAB PO; +ONDA1TAB15 PO; +ONDA4TAB6 SL; +PHEN1SUP6 PR; +SERT-138 PO
== END ==
LOC: M LAB 09:31
PROVIDERS: ATTEND Internal Medicine Gastroenterology
DX: R19.7 Diarrhea, unspecified (principal)

== ENCOUNTER → 2017-02-06 | Outpatient (CLI) | payer OTHER ==
[~2017-02-06] VITALS: Ht 154.9 cm; Wt 79.4 kg
[~2017-02-06] MED LIST changes: +NS 1,000 ML IV ONE; +PROPOFOL 200 MG/20 ML VIAL As Ordered ONE
--- NOTE | 2017-02-06 14:29 | ROOR ---
Patient Name: Alessia Huff Procedure Date: 02/06/2017 2:02 PM Date of : 1985 Age: 31 Room: [facility] Gender: Female Note Status: Finalized Procedure: Colonoscopy Indications: Generalized abdominal pain, Clinically significant diarrhea of unexplained origin, Constipation, History of irritable bowel, chronic abdominal pain. recent history of medication induced fecal impaction. recent history of diarrhea. stool testing positive for "shiga like e-coli" x 2 sets. failed levaquin Providers: Mayito SMITH MD Referring MD: BRADY ABREU MD Requesting Provider: Medicines: Monitored Anesthesia Care Complications: No immediate complications. Procedure: Pre-Anesthesia Assessment: - The heart rate, respiratory rate, oxygen saturations, blood pressure, adequacy of pulmonary ventilation, and response to care were monitored throughout the procedure. The Colonoscope was introduced through the anus and advanced to 8 cm into the ileum. The colonoscopy was performed without difficulty. The patient tolerated the procedure well. The quality of the bowel preparation was good. Findings: The perianal and digital rectal examinations were normal. The colon (entire examined portion) was redundant. Small Internal Hemorrhoids. The entire examined colon appeared normal on direct and retroflexion views. The terminal ileum appeared normal. Biopsies for histology were taken with a cold forceps from the entire colon for evaluation of microscopic colitis. Impression: - Small Internal Hemorrhoids. - The entire examined colon is somewhat redundant, but is otherwise normal on direct and retroflexion views - The examined portion of the ileum was normal. - Biopsies were taken with a cold forceps from the entire colon for evaluation of microscopic colitis. Recommendation: - Telephone endoscopist for pathology results in 2 weeks. - Start Xifaxan 200 mg three times a day for 2 weeks for E coli in stool cultures done last week.--Script was sent to your pharmacy. ([facility]) Mayito Smith MD Mayito SMITH MD 02/06/2017 2:29:09 PM This report has been signed electronically. Number of Addenda: 0 Note Initiated On: 02/06/2017 2:02 PM Estimated Blood Loss: Estimated blood loss: none.
[2017-02-06 14:50] VITALS: BP 115/73
== END | disposition home or self-care (01) ==
LOC: M OPP 12:11
PROVIDERS: ATTEND Internal Medicine Gastroenterology
DX: R19.7 Diarrhea, unspecified (principal); R10.84 Generalized abdominal pain; R19.5 Other fecal abnormalities; Q43.8 Other specified congenital malformations of intestine; K64.8 Other hemorrhoids; E78.5 Hyperlipidemia, unspecified; Z86.79 Personal history of other diseases of the circulatory system; Z87.19 Personal history of other diseases of the digestive system; K58.9 Irritable bowel syndrome, unspecified; F41.9 Anxiety disorder, unspecified; F32.9 Major depressive disorder, single episode, unspecified; Z80.3 Family history of malignant neoplasm of breast; Z88.5 Allergy status to narcotic agent; Z88.2 Allergy status to sulfonamides; Z88.8 Allergy status to other drugs, medicaments and biological substances; Z79.899 Other long term (current) drug therapy

== ENCOUNTER 2017-03-10 12:59 | Emergency (ER) | payer OTHER ==
[~2017-03-10] VITALS: Ht 154.9 cm; Wt 80.0 kg
[2017-03-10 12:59] VITALS: BP 133/82
[~2017-03-10 12:59] MED LIST changes: -CARA1TAB2 PO; +CARA1TAB6 PO; -NS 1,000 ML IV ONE; -ONDA1TAB15 PO; +ONDA4TAB5 PO; -PROPOFOL 200 MG/20 ML VIAL As Ordered ONE
[2017-03-10] MEDS ORDERED: NORCOTAB PO (13:32)
[2017-03-10] MEDS ORDERED: BACI500O8 TOP (13:32)
[2017-07-06] MEDS ORDERED: CYCL10TA (10:42)
[2017-07-06] MEDS ORDERED: NORCOTAB PO ×2 (14:52→15:36)
== END 2017-03-10 13:58 | disposition home or self-care (01) ==
LOC: M ED 12:59
DX: T25.221A Burn of second degree of right foot, initial encounter (principal); T31.0 Burns involving less than 10% of body surface; I10 Essential (primary) hypertension; X03.0XXA Exposure to flames in controlled fire, not in building or structure, initial encounter; Y92.9 Unspecified place or not applicable; Y99.9 Unspecified external cause status; Y93.9 Activity, unspecified; Z88.2 Allergy status to sulfonamides; Z88.5 Allergy status to narcotic agent; Z88.8 Allergy status to other drugs, medicaments and biological substances; Z79.899 Other long term (current) drug therapy

== ENCOUNTER 2017-03-21 18:20 | Emergency (ER) | payer OTHER ==
[~2017-03-21] VITALS: Ht 154.9 cm; Wt 79.5 kg
[~2017-03-21 18:20] MED LIST changes: +BACI500O8 TOP; +NORCOTAB PO
[2017-03-21] MEDS ORDERED: ZOLO100T PO (18:28)
[2017-03-21] MEDS ORDERED: ESTR1TAB PO (18:28)
[2017-03-21] MEDS ORDERED: NS 1,000 ML IV ONE (18:45)
[2017-03-21] MEDS ORDERED: PERCOCET 5MG/325MG TAB PO ONE (18:45)
--- NOTE | 2017-03-21 19:30 | REPUSA ---
CT of the abdomen and pelvis without contrast Clinical statement: Pain. Technique: Multiple axial CT images were obtained from the base of the lungs to the floor of the pelv is utilizing 5 mm axial slices without administration of contrast. Coronal and sagittal reconstructio ns were also obtained. Comparison: 12/22/2016. Findings: Chest: The visualized lung bases are clear. Abdomen: The kidneys are normal in size bilaterally. There is no evidence of hydronephrosis or nephro lithiasis. The liver, spleen, pancreas, and adrenal glands are unremarkable. The aorta demonstrates n ormal caliber and contour. There is no abdominal lymphadenopathy or ascites. Pelvis: The bowel is unremarkable, with no obstructive or inflammatory changes. The urinary bladder i s within normal limits. There is no pelvic lymphadenopathy or ascites. The other pelvic structures ap pear unremarkable. Bones: There are no suspicious osseous abnormalities seen. Impression: Unremarkable CT examination of the abdomen and pelvis.
[2017-03-21 19:32] LABS: BASO % 0.6 % (0.0-1.0); EOS # 0.3 K/mm3 (0.0-0.50); EOS % 7.1 % (0.0-3.0); LARGE UNSTAINED CELL # 0.1 K/mm3 (0.0-0.4); LARGE UNSTAINED CELL % 2.2 % (0.0-4.0); LYMPH # 1.9 K/mm3 (1.5-4.5); LYMPH % 40.4 % (24.0-44.0); MEAN CORPUSCULAR HEMOGLOBIN 29.3 pg (27.0-33.0); MEAN CORPUSCULAR HGB CONC 34.5 g/dl (32.0-36.5); MEAN CORPUSCULAR VOLUME 84.9 fl (80.0-96.0); MONO # 0.3 K/mm3 (0.0-0.8); MONO % 5.7 % (0.0-5.0); NEUTROPHILS # 1.9 K/mm3 (1.8-7.7); PLATELET COUNT, AUTOMATED 247 k/mm3 (150-450); RED CELL DISTRIBUTION WIDTH 13.4 % (11.5-14.5); WHITE BLOOD COUNT 4.3 K/mm3 (4.0-10.0)
[2017-03-21 19:55] LABS: ALBUMIN 3.8 GM/DL (3.2-5.2); ALBUMIN/GLOBULIN RATIO 0.97 (1.00-1.93); ALKALINE PHOSPHATASE 68 U/L (45-117); ALT/SGPT 22 U/L (12-78); ANION GAP 10 MEQ/L (8-16); AST/SGOT 14 U/L (15-37); BILIRUBIN,DIRECT < 0.1 MG/DL (0.0-0.2); BILIRUBIN,TOTAL 0.3 MG/DL (0.2-1.0); BLOOD UREA NITROGEN 11 MG/DL (7-18); CALCIUM LEVEL 9.5 MG/DL (8.5-10.1); CARBON DIOXIDE LEVEL 25 MEQ/L (21-32); CHLORIDE LEVEL 102 MEQ/L (98-107); CREATININE FOR GFR 0.89 MG/DL (0.55-1.02); GLOMERULAR FILTRATION RATE > 60.0 (>60); GLUCOSE, FASTING 91 MG/DL (70-105); POTASSIUM SERUM 3.7 MEQ/L (3.5-5.1); SODIUM LEVEL 137 MEQ/L (136-145); TOTAL PROTEIN 7.7 GM/DL (6.4-8.2)
[2017-03-21] MEDS ORDERED: ZOFR4TAB3 PO (20:18)
[2017-03-21] MEDS ORDERED: IBUP80TA PO (20:18)
[2017-03-21 20:29] VITALS: BP 136/52
[2017-07-06] MEDS ORDERED: CYCL10TA (10:42)
[2017-07-06] MEDS ORDERED: NORCOTAB PO ×2 (14:52→15:36)
== END 2017-03-21 20:25 | disposition home or self-care (01) ==
LOC: M ED 18:20
DX: M54.9 Dorsalgia, unspecified (principal); R35.0 Frequency of micturition; I51.9 Heart disease, unspecified; Z87.442 Personal history of urinary calculi; K21.9 Gastro-esophageal reflux disease without esophagitis; N83.299 Other ovarian cyst, unspecified side; N80.9 Endometriosis, unspecified; K27.9 Peptic ulcer, site unspecified, unspecified as acute or chronic, without hemorrhage or perforation; Z83.49 Family history of other endocrine, nutritional and metabolic diseases; Z88.1 Allergy status to other antibiotic agents; Z88.5 Allergy status to narcotic agent; Z88.2 Allergy status to sulfonamides

== ENCOUNTER 2017-03-25 08:45 | Emergency (ER) | payer OTHER ==
[~2017-03-25] VITALS: Ht 154.9 cm; Wt 79.5 kg
[~2017-03-25 08:45] MED LIST changes: +IBUP80TA PO
--- NOTE | 2017-03-25 11:10 | REP ---
TEMPOROMANDIBULAR JOINTS: Five views of the temporomandibular joints are performed including open and closed mouth views. I see no fracture. There is limited anterior motion of the mandibular condyles bilaterally with opening of the mouth, more so on the left than on the right. This suggests a probable underlying abnormality regarding the menisci. Signed by Ab Ballesteros MD 03/26/2017 05:49 P
[2017-03-25 11:35] VITALS: BP 125/94
[2017-07-06] MEDS ORDERED: CYCL10TA (10:42)
[2017-07-06] MEDS ORDERED: NORCOTAB PO ×2 (14:52→15:36)
== END 2017-03-25 11:38 | disposition home or self-care (01) ==
LOC: M ED 08:45
DX: M26.603 Bilateral temporomandibular joint disorder, unspecified (principal); N80.9 Endometriosis, unspecified; K58.9 Irritable bowel syndrome, unspecified; Z79.899 Other long term (current) drug therapy; Z88.1 Allergy status to other antibiotic agents; Z88.5 Allergy status to narcotic agent; Z88.2 Allergy status to sulfonamides

== ENCOUNTER 2017-04-18 17:11 | Emergency (ER) | payer OTHER ==
[~2017-04-18] VITALS: Ht 154.9 cm; Wt 79.5 kg
[2017-04-18] MEDS ORDERED: toradol PO (17:21)
[2017-04-18] MEDS ORDERED: PANTOPRAZOLE 40MG INJ (PROTONIX) (C9113) IV ONE (18:15)
[2017-04-18] MEDS ORDERED: NS 1,000 ML IV ONE (18:15)
[2017-04-18] MEDS ORDERED: ONDANSETRON 4MG/2ML VIAL (J2405) IV ONE (18:15)
[2017-04-18 18:35] LABS: BASO % 0.7 % (0.0-1.0); EOS # 0.4 K/mm3 (0.0-0.50); EOS % 6.3 % (0.0-3.0); LARGE UNSTAINED CELL # 0.1 K/mm3 (0.0-0.4); LARGE UNSTAINED CELL % 1.4 % (0.0-4.0); LYMPH # 2.2 K/mm3 (1.5-4.5); LYMPH % 29.5 % (24.0-44.0); MEAN CORPUSCULAR HEMOGLOBIN 29.4 pg (27.0-33.0); MEAN CORPUSCULAR HGB CONC 34.4 g/dl (32.0-36.5); MEAN CORPUSCULAR VOLUME 85.6 fl (80.0-96.0); MONO # 0.4 K/mm3 (0.0-0.8); MONO % 4.9 % (0.0-5.0); NEUTROPHILS % 57.2 % (36.0-66.0); PLATELET COUNT, AUTOMATED 282 k/mm3 (150-450); RED CELL DISTRIBUTION WIDTH 13.3 % (11.5-14.5); WHITE BLOOD COUNT 7.1 K/mm3 (4.0-10.0)
[2017-04-18 18:55] LABS: ALBUMIN 3.8 GM/DL (3.2-5.2); ALBUMIN/GLOBULIN RATIO 0.95 (1.00-1.93); ALKALINE PHOSPHATASE 68 U/L (45-117); ALT/SGPT 22 U/L (12-78); ANION GAP 10 MEQ/L (8-16); AST/SGOT 14 U/L (15-37); BILIRUBIN,DIRECT < 0.1 MG/DL (0.0-0.2); BILIRUBIN,TOTAL 0.2 MG/DL (0.2-1.0); BLOOD UREA NITROGEN 12 MG/DL (7-18); CALCIUM LEVEL 9.1 MG/DL (8.5-10.1); CARBON DIOXIDE LEVEL 25 MEQ/L (21-32); CHLORIDE LEVEL 107 MEQ/L (98-107); CREATININE FOR GFR 0.88 MG/DL (0.55-1.02); GLOMERULAR FILTRATION RATE > 60.0 (>60); GLUCOSE, FASTING 98 MG/DL (70-105); POTASSIUM SERUM 4.1 MEQ/L (3.5-5.1); SODIUM LEVEL 142 MEQ/L (136-145); TOTAL PROTEIN 7.8 GM/DL (6.4-8.2)
[2017-04-18] MEDS ORDERED: GI COCKTAIL 50ML BTL(HYOSCYAMINE/MAALOX/LIDOCAINE VISCOUS)(1:3:1) PO ONE (19:45)
[2017-04-18] MEDS ORDERED: fentaNYL 100 MCG/2 ML INJECTION (J3010) IV ONE (20:15)
[2017-04-18 20:33] VITALS: BP 124/68
[2017-04-18] MEDS ORDERED: PROT1TAB2 PO (20:43)
[2017-04-18] MEDS ORDERED: CARA1TAB6 PO (20:43)
[2017-04-18] MEDS ORDERED: ZOFR4TAB3 PO (20:43)
--- NOTE | 2017-04-19 08:58 | REP ---
Abdominal series: Three views. History: Abdominal pain. Findings: Upright chest radiograph is unremarkable. There is no evidence of infiltrate or free subdiaphragmatic air. There is a small eventration of the right hemidiaphragm. Heart is not enlarged. Supine and erect views of the abdomen show clips in the right upper quadrant. Bowel gas pattern is normal. Flank stripes and psoas margins appear intact. There are also clips in the right inguinal soft tissues. No mass, organomegaly, or pathologic calcification is seen. A minimal levoconvex curve is present on the upright radiograph of the lumbar spine. Impression: No significant abnormality. Signed by Gabriel Delgadillo MD 04/19/2017 09:49 A
[2017-07-06] MEDS ORDERED: CYCL10TA (10:42)
[2017-07-06] MEDS ORDERED: NORCOTAB PO ×2 (14:52→15:36)
== END 2017-04-18 20:50 | disposition home or self-care (01) ==
LOC: M ED 17:59
DX: K29.01 Acute gastritis with bleeding (principal); R11.2 Nausea with vomiting, unspecified; R07.9 Chest pain, unspecified; K27.9 Peptic ulcer, site unspecified, unspecified as acute or chronic, without hemorrhage or perforation; Z87.442 Personal history of urinary calculi; N80.9 Endometriosis, unspecified; N83.299 Other ovarian cyst, unspecified side; F41.9 Anxiety disorder, unspecified; F32.9 Major depressive disorder, single episode, unspecified; Z79.899 Other long term (current) drug therapy; Z88.2 Allergy status to sulfonamides; Z88.5 Allergy status to narcotic agent; Z88.1 Allergy status to other antibiotic agents
CPT/HCPCS: 74022; 80048; 80076; 83690; 85025; 86850; 86900; 86901; 96374; 96375; 99283; C9113; J2405; J3010

== ENCOUNTER 2017-05-03 12:15 | Emergency (ER) | payer OTHER ==
[~2017-05-03] VITALS: Ht 154.9 cm; Wt 77.3 kg
[~2017-05-03 12:15] MED LIST changes: +toradol PO
[2017-05-03] MEDS ORDERED: NS 1,000 ML IV ONE (13:45)
[2017-05-03] MEDS ORDERED: ONDANSETRON 4MG/2ML VIAL (J2405) IV ONE (13:45)
[2017-05-03] MEDS ORDERED: HYDROmorphone HCL 1 MG/ML SYRINGE (J1170) IV PRN (13:45)
[2017-05-03 14:11] LABS: BASO % 1.1 % (0.0-1.0); EOS # 0.4 K/mm3 (0.0-0.50); EOS % 8.1 % (0.0-3.0); LARGE UNSTAINED CELL # 0.1 K/mm3 (0.0-0.4); LARGE UNSTAINED CELL % 1.5 % (0.0-4.0); LYMPH # 1.8 K/mm3 (1.5-4.5); LYMPH % 37.8 % (24.0-44.0); MEAN CORPUSCULAR HEMOGLOBIN 29.5 pg (27.0-33.0); MEAN CORPUSCULAR HGB CONC 34.9 g/dl (32.0-36.5); MEAN CORPUSCULAR VOLUME 84.5 fl (80.0-96.0); MONO # 0.3 K/mm3 (0.0-0.8); MONO % 5.4 % (0.0-5.0); NEUTROPHILS # 2.1 K/mm3 (1.8-7.7); NEUTROPHILS % 46.1 % (36.0-66.0); PLATELET COUNT, AUTOMATED 282 k/mm3 (150-450); RED CELL DISTRIBUTION WIDTH 13.3 % (11.5-14.5); WHITE BLOOD COUNT 4.6 K/mm3 (4.0-10.0)
[2017-05-03 14:35] LABS: ALBUMIN 3.6 GM/DL (3.2-5.2); ALBUMIN/GLOBULIN RATIO 0.95 (1.00-1.93); ALKALINE PHOSPHATASE 61 U/L (45-117); ALT/SGPT 21 U/L (12-78); AMYLASE 43 U/L (25-115); ANION GAP 10 MEQ/L (8-16); AST/SGOT 17 U/L (15-37); BILIRUBIN,DIRECT < 0.1 MG/DL (0.0-0.2); BILIRUBIN,TOTAL 0.2 MG/DL (0.2-1.0); BLOOD UREA NITROGEN 8 MG/DL (7-18); CALCIUM LEVEL 8.8 MG/DL (8.5-10.1); CARBON DIOXIDE LEVEL 22 MEQ/L (21-32); CHLORIDE LEVEL 109 MEQ/L (98-107); CREATININE FOR GFR 0.84 MG/DL (0.55-1.02); GLOMERULAR FILTRATION RATE > 60.0 (>60); GLUCOSE, FASTING 102 MG/DL (70-105); POTASSIUM SERUM 4.1 MEQ/L (3.5-5.1); SODIUM LEVEL 141 MEQ/L (136-145); TOTAL PROTEIN 7.4 GM/DL (6.4-8.2)
[2017-05-03] MEDS ORDERED: HYDROmorphone HCL 1 MG/ML SYRINGE (J1170) IV ONE (15:00)
[2017-05-03] MEDS ORDERED: ISOVUE-370 76% 100ML VIAL (Q9967) As Ordered ONE (15:13)
--- NOTE | 2017-05-03 15:53 | REP ---
Clinical: Acute abdominal pain. Technique: Axial contrast enhanced images from the lung bases to the pubic symphysis using 100 ml Isovue 370 intravenous contrast material with coronal and sagittal re-formations. Comparison: 03/21/2017. Findings: Lung bases are clear. Visualized heart and pericardium normal. Liver, spleen, pancreas, bilateral adrenal glands and kidneys are normal. The patient is status post cholecystectomy and appendectomy. The enteric system is without obstruction or acute inflammatory process. Pelvis demonstrates normal bladder and age appropriate prostate/seminal vesicles. No ascites. No free air. No adenopathy. Vasculature is normal. Surrounding musculoskeletal structures are intact. Impression: Normal contrast enhanced CT of the abdomen and pelvis. No acute abdominopelvic pathology appreciated. Signed by Edis Verde MD 05/03/2017 03:45 P
[2017-05-03 16:16] VITALS: BP 104/68
[2017-07-06] MEDS ORDERED: CYCL10TA (10:42)
[2017-07-06] MEDS ORDERED: NORCOTAB PO ×2 (14:52→15:36)
== END 2017-05-03 16:17 | disposition home or self-care (01) ==
LOC: M ED 12:15
DX: R11.2 Nausea with vomiting, unspecified (principal); R19.7 Diarrhea, unspecified; R10.9 Unspecified abdominal pain; F32.9 Major depressive disorder, single episode, unspecified; F41.9 Anxiety disorder, unspecified; Z79.899 Other long term (current) drug therapy; Z88.5 Allergy status to narcotic agent; Z88.2 Allergy status to sulfonamides; Z88.1 Allergy status to other antibiotic agents
CPT/HCPCS: 36415; 74177; 80048; 80076; 81001; 82150; 83605; 83690; 85025; 87040; 87086; 96361; 96374; 96375; 96376; 99283; J1170; J2405; Q9967

== ENCOUNTER 2017-05-08 12:24 | Emergency (ER) | payer OTHER ==
[~2017-05-08] VITALS: Ht 154.9 cm; Wt 76.4 kg
[2017-05-08] MEDS ORDERED: GI COCKTAIL 50ML BTL(HYOSCYAMINE/MAALOX/LIDOCAINE VISCOUS)(1:3:1) PO ONE (13:45)
[2017-05-08] MEDS ORDERED: NS 500 ML IV ONE (14:45)
[2017-05-08] MEDS: fentaNYL 100 MCG/2 ML INJECTION (J3010) IV PRN ×2 (15:12→16:55)
[2017-05-08 15:16] LABS: BASO % 0.5 % (0.0-1.0); EOS # 0.4 K/mm3 (0.0-0.50); EOS % 7.3 % (0.0-3.0); LARGE UNSTAINED CELL # 0.1 K/mm3 (0.0-0.4); LARGE UNSTAINED CELL % 1.6 % (0.0-4.0); LYMPH # 1.8 K/mm3 (1.5-4.5); LYMPH % 35.8 % (24.0-44.0); MEAN CORPUSCULAR HEMOGLOBIN 30.5 pg (27.0-33.0); MEAN CORPUSCULAR HGB CONC 35.4 g/dl (32.0-36.5); MONO # 0.2 K/mm3 (0.0-0.8); MONO % 4.4 % (0.0-5.0); NEUTROPHILS # 2.5 K/mm3 (1.8-7.7); NEUTROPHILS % 50.3 % (36.0-66.0); PLATELET COUNT, AUTOMATED 288 k/mm3 (150-450); RED CELL DISTRIBUTION WIDTH 13.2 % (11.5-14.5)
[2017-05-08 15:42] LABS: ALBUMIN/GLOBULIN RATIO 0.95 (1.00-1.93); ALKALINE PHOSPHATASE 63 U/L (45-117); ALT/SGPT 21 U/L (12-78); ANION GAP 8 MEQ/L (8-16); AST/SGOT 12 U/L (15-37); BILIRUBIN,DIRECT < 0.1 MG/DL (0.0-0.2); BILIRUBIN,TOTAL 0.2 MG/DL (0.2-1.0); BLOOD UREA NITROGEN 8 MG/DL (7-18); CALCIUM LEVEL 9.6 MG/DL (8.5-10.1); CARBON DIOXIDE LEVEL 27 MEQ/L (21-32); CHLORIDE LEVEL 105 MEQ/L (98-107); CREATININE FOR GFR 0.87 MG/DL (0.55-1.02); GLOMERULAR FILTRATION RATE > 60.0 (>60); GLUCOSE, FASTING 93 MG/DL (70-105); POTASSIUM SERUM 3.9 MEQ/L (3.5-5.1); SODIUM LEVEL 140 MEQ/L (136-145); TOTAL PROTEIN 8.2 GM/DL (6.4-8.2)
[2017-05-08] MEDS ORDERED: ONDANSETRON 4MG/2ML VIAL (J2405) IV ONE (15:45)
[2017-05-08 17:41] VITALS: BP 112/76
[2017-07-06] MEDS ORDERED: CYCL10TA (10:42)
[2017-07-06] MEDS ORDERED: NORCOTAB PO ×2 (14:52→15:36)
== END 2017-05-08 18:03 | disposition home or self-care (01) ==
LOC: M ED 12:24
DX: K29.70 Gastritis, unspecified, without bleeding (principal); F41.9 Anxiety disorder, unspecified; F33.9 Major depressive disorder, recurrent, unspecified; F84.0 Autistic disorder; Z79.899 Other long term (current) drug therapy; Z88.5 Allergy status to narcotic agent; Z88.2 Allergy status to sulfonamides; Z88.1 Allergy status to other antibiotic agents
CPT/HCPCS: 80048; 80076; 83690; 85025; 96374; 96375; 99283; J2405; J3010

== ENCOUNTER 2017-06-03 03:00 | Emergency (ER) | payer OTHER ==
[~2017-06-03] VITALS: Ht 154.9 cm; Wt 77.3 kg
[2017-06-03] MEDS ORDERED: KETO10TAB PO (03:10)
[2017-06-03] MEDS ORDERED: ONDANSETRON 4MG/2ML VIAL (J2405) IV ONE (05:45)
[2017-06-03] MEDS ORDERED: NS 1,000 ML IV ONE (05:45)
[2017-06-03] MEDS: HYDROmorphone HCL 1 MG/ML SYRINGE (J1170) IV PRN ×3 (06:04→10:02)
[2017-06-03 06:11] LABS: BASO % 0.5 % (0.0-1.0); EOS # 0.4 10^3/uL (0.0-0.50); EOS % 7.5 % (0.0-3.0); IMMATURE GRANULOCYTE % 0.2 % (0-0); LYMPH # 1.8 10^3/uL (1.5-4.5); LYMPH % 31.8 % (24.0-44.0); MEAN CORPUSCULAR HEMOGLOBIN 29.9 pg (27.0-33.0); MEAN CORPUSCULAR HGB CONC 34.4 g/dl (32.0-36.5); MEAN CORPUSCULAR VOLUME 86.8 fl (80.0-96.0); MONO # 0.4 10^3/uL (0.0-0.8); MONO % 6.6 % (0.0-5.0); NEUTROPHILS % 53.4 % (36.0-66.0); PLATELET COUNT, AUTOMATED 258 10^3/uL (150-450); RED CELL DISTRIBUTION WIDTH 13.2 % (11.5-14.5); WHITE BLOOD COUNT 5.6 10^3/uL (4.0-10.0)
[2017-06-03 06:21] LABS: ALBUMIN 3.6 GM/DL (3.2-5.2); ALBUMIN/GLOBULIN RATIO 0.92 (1.00-1.93); ALKALINE PHOSPHATASE 60 U/L (45-117); ALT/SGPT 20 U/L (12-78); ANION GAP 7 MEQ/L (8-16); AST/SGOT 14 U/L (15-37); BILIRUBIN,DIRECT < 0.1 MG/DL (0.0-0.2); BILIRUBIN,TOTAL 0.2 MG/DL (0.2-1.0); BLOOD UREA NITROGEN 10 MG/DL (7-18); CALCIUM LEVEL 8.7 MG/DL (8.5-10.1); CARBON DIOXIDE LEVEL 26 MEQ/L (21-32); CHLORIDE LEVEL 106 MEQ/L (98-107); CREATININE FOR GFR 0.84 MG/DL (0.55-1.02); GLOMERULAR FILTRATION RATE > 60.0 (>60); GLUCOSE, FASTING 92 MG/DL (70-105); POTASSIUM SERUM 3.7 MEQ/L (3.5-5.1); SODIUM LEVEL 139 MEQ/L (136-145); TOTAL PROTEIN 7.5 GM/DL (6.4-8.2)
[2017-06-03] MEDS ORDERED: ISOVUE-370 76% 100ML VIAL (Q9967) As Ordered ONE (06:51)
--- NOTE | 2017-06-03 07:40 | REPUSA ---
CLINICAL HISTORY: Abdominal pain. TECHNIQUE: Multiple axial, sagittal and coronal CT images were obtained through the abdomen and pelvi s after administration of intravenous contrast material. COMMENTS: Comparison to the prior exam performed on 05/03/2017. Unchanged moderate hepatomegaly with fatty infiltration. The liver is of uniform attenuation without mass or defect. There is no intra or extrahepatic biliary ductal dilatation. The spleen is normal. The gallbladder is surgically absent. The pancreas is of no rmal contour and attenuation characteristics. There is no evidence of adrenal mass. Both kidneys demonstrate prompt and equal nephrograms. The kidneys are normal in size, shape and conf iguration. There is no evidence of renal or ureteral mass. No renal or ureteral calculi are identifie d. There is no hydroureter or hydronephrosis. No evidence for appendicitis. There is no bowel wall thickening. No evidence for small or large farhat l obstruction. There is no evidence of abdominal ascites or lymphadenopathy. There is no evidence of intrinsic or extrinsic bladder mass. Mild diffuse thickening of the bladder. There is no pelvic ascites or lymphadenopathy. Fluid-filled small bowels. Images of the lung bases show no evidence of pleural or parenchymal mass. There are no pleural effusi ons. The bony structures are free of lytic or blastic lesions. Anterior abdominal wall hernia containing nonincarcerated fat. IMPRESSION: Fluid filled small bowel suggestive of ileus/enteritis. Interval appearance of mild diffuse thickening of the wall of the bladder. Underdistention versus mil d cystitis. Additional chronic, unchanged findings as above. Thank you for your kind referral of this patient.
[2017-06-03 10:56] VITALS: BP 121/85
[2017-07-06] MEDS ORDERED: CYCL10TA (10:42)
[2017-07-06] MEDS ORDERED: NORCOTAB PO ×2 (14:52→15:36)
== END 2017-06-03 11:05 | disposition home or self-care (01) ==
LOC: M ED 03:00
DX: R10.2 Pelvic and perineal pain (principal); N80.9 Endometriosis, unspecified; Z79.890 Hormone replacement therapy; Z79.899 Other long term (current) drug therapy
CPT/HCPCS: 74177; 80048; 80076; 81001; 83690; 85025; 87086; 87491; 87591; 96361; 96366; 96374; 96375; 99284; J1170; J2405; Q9967

== ENCOUNTER 2017-06-08 02:16 | Emergency (ER) | payer OTHER ==
[~2017-06-08] VITALS: Ht 154.9 cm; Wt 77.3 kg
[~2017-06-08 02:16] MED LIST changes: +KETO10TAB PO
[2017-06-08 02:28] VITALS: BP 138/106
[2017-07-06] MEDS ORDERED: CYCL10TA (10:42)
[2017-07-06] MEDS ORDERED: NORCOTAB PO ×2 (14:52→15:36)
== END 2017-06-08 07:30 | disposition left against medical advice (07) ==
LOC: M ED 02:16
DX: R10.2 Pelvic and perineal pain (principal); Z53.21 Procedure and treatment not carried out due to patient leaving prior to being seen by health care provider

== ENCOUNTER 2017-06-10 11:22 | Emergency (ER) | payer OTHER ==
[~2017-06-10] VITALS: Ht 154.9 cm; Wt 77.3 kg
[2017-06-10] MEDS ORDERED: PROT1TAB2 (11:32)
[2017-06-10] MEDS ORDERED: HYDROmorphone HCL 1 MG/ML SYRINGE (J1170) IV STA ×2 (11:50→13:15)
[2017-06-10] MEDS ORDERED: ONDANSETRON 4MG/2ML VIAL (J2405) IV ONE (12:00)
[2017-06-10] MEDS ORDERED: NS 1,000 ML IV ONE (12:00)
[2017-06-10 12:31] LABS: BASO # 0.1 10^3/uL (0.0-0.2); BASO % 0.8 % (0.0-1.0); EOS # 0.4 10^3/uL (0.0-0.50); IMMATURE GRANULOCYTE % 0.2 % (0-0); LYMPH # 2.1 10^3/uL (1.5-4.5); LYMPH % 34.2 % (24.0-44.0); MEAN CORPUSCULAR HEMOGLOBIN 29.3 pg (27.0-33.0); MEAN CORPUSCULAR VOLUME 86.2 fl (80.0-96.0); MONO # 0.4 10^3/uL (0.0-0.8); MONO % 6.5 % (0.0-5.0); NEUTROPHILS # 3.2 10^3/uL (1.8-7.7); NEUTROPHILS % 52.3 % (36.0-66.0); PLATELET COUNT, AUTOMATED 264 10^3/uL (150-450); RED CELL DISTRIBUTION WIDTH 13.1 % (11.5-14.5)
[2017-06-10 13:02] LABS: ALBUMIN/GLOBULIN RATIO 0.95 (1.00-1.93); ALKALINE PHOSPHATASE 64 U/L (45-117); ALT/SGPT 17 U/L (12-78); AMYLASE 36 U/L (25-115); ANION GAP 9 MEQ/L (8-16); AST/SGOT 13 U/L (15-37); BILIRUBIN,DIRECT < 0.1 MG/DL (0.0-0.2); BILIRUBIN,TOTAL 0.3 MG/DL (0.2-1.0); BLOOD UREA NITROGEN 8 MG/DL (7-18); CALCIUM LEVEL 9.7 MG/DL (8.5-10.1); CARBON DIOXIDE LEVEL 25 MEQ/L (21-32); CHLORIDE LEVEL 104 MEQ/L (98-107); CREATININE FOR GFR 0.84 MG/DL (0.55-1.02); GLOMERULAR FILTRATION RATE > 60.0 (>60); GLUCOSE, FASTING 90 MG/DL (70-105); POTASSIUM SERUM 3.5 MEQ/L (3.5-5.1); SODIUM LEVEL 138 MEQ/L (136-145); TOTAL PROTEIN 8.2 GM/DL (6.4-8.2)
[2017-06-10 14:02] VITALS: BP 112/71
[2017-07-06] MEDS ORDERED: CYCL10TA (10:42)
[2017-07-06] MEDS ORDERED: NORCOTAB PO ×2 (14:52→15:36)
== END 2017-06-10 14:04 | disposition home or self-care (01) ==
LOC: M ED 11:22
DX: R10.2 Pelvic and perineal pain (principal); Z79.899 Other long term (current) drug therapy; Z88.5 Allergy status to narcotic agent; Z88.2 Allergy status to sulfonamides; Z88.1 Allergy status to other antibiotic agents
CPT/HCPCS: 36415; 80048; 80076; 81001; 82150; 83690; 85025; 96374; 96375; 96376; 99284; J1170; J2405

== ENCOUNTER 2017-06-12 09:21 | Emergency (ER) | payer OTHER ==
[~2017-06-12] VITALS: Ht 154.9 cm; Wt 77.3 kg
[~2017-06-12 09:21] MED LIST changes: +PROT1TAB2
[2017-06-12] MEDS ORDERED: ONDANSETRON 4 MG ORAL DISINTEGRATING TAB (S0181) PO ONE (09:45)
[2017-06-12] MEDS ORDERED: HYDROmorphone HCL 1 MG/ML SYRINGE (J1170) IM ONE (09:45)
[2017-06-12 10:29] VITALS: BP 124/78
[2017-07-06] MEDS ORDERED: CYCL10TA (10:42)
[2017-07-06] MEDS ORDERED: NORCOTAB PO ×2 (14:52→15:36)
== END 2017-06-12 10:48 | disposition home or self-care (01) ==
LOC: M ED 09:21
DX: G89.29 Other chronic pain (principal); R10.2 Pelvic and perineal pain; N80.9 Endometriosis, unspecified; Z87.442 Personal history of urinary calculi; F41.9 Anxiety disorder, unspecified; Z79.899 Other long term (current) drug therapy; Z88.5 Allergy status to narcotic agent; Z88.2 Allergy status to sulfonamides; Z88.1 Allergy status to other antibiotic agents
CPT/HCPCS: 96372; 99282; J1170

== ENCOUNTER 2017-06-13 08:14 | Emergency (ER) | payer OTHER ==
[~2017-06-13] VITALS: Ht 154.9 cm; Wt 77.2 kg
[2017-06-13] MEDS ORDERED: ONDANSETRON 4MG/2ML VIAL (J2405) IV ONE (09:00)
[2017-06-13] MEDS ORDERED: HYDROmorphone HCL 1 MG/ML SYRINGE (J1170) IV ONE ×3 (09:00→10:45)
[2017-06-13 09:25] LABS: BASO % 0.7 % (0.0-1.0); EOS # 0.4 10^3/uL (0.0-0.50); EOS % 6.5 % (0.0-3.0); IMMATURE GRANULOCYTE % 0.2 % (0-0); LYMPH # 1.7 10^3/uL (1.5-4.5); LYMPH % 31.9 % (24.0-44.0); MEAN CORPUSCULAR HEMOGLOBIN 29.6 pg (27.0-33.0); MEAN CORPUSCULAR HGB CONC 33.7 g/dl (32.0-36.5); MEAN CORPUSCULAR VOLUME 87.8 fl (80.0-96.0); MONO # 0.3 10^3/uL (0.0-0.8); MONO % 4.9 % (0.0-5.0); NEUTROPHILS % 55.8 % (36.0-66.0); PLATELET COUNT, AUTOMATED 292 10^3/uL (150-450); RED CELL DISTRIBUTION WIDTH 13.2 % (11.5-14.5); WHITE BLOOD COUNT 5.4 10^3/uL (4.0-10.0)
[2017-06-13 09:38] LABS: ALBUMIN 3.8 GM/DL (3.2-5.2); ALBUMIN/GLOBULIN RATIO 0.93 (1.00-1.93); ALKALINE PHOSPHATASE 73 U/L (45-117); ALT/SGPT 17 U/L (12-78); ANION GAP 9 MEQ/L (8-16); AST/SGOT 14 U/L (15-37); BILIRUBIN,TOTAL 0.3 MG/DL (0.2-1.0); BLOOD UREA NITROGEN 7 MG/DL (7-18); CALCIUM LEVEL 9.3 MG/DL (8.5-10.1); CARBON DIOXIDE LEVEL 26 MEQ/L (21-32); CHLORIDE LEVEL 104 MEQ/L (98-107); CREATININE FOR GFR 0.93 MG/DL (0.55-1.02); GLOMERULAR FILTRATION RATE > 60.0 (>60); GLUCOSE, FASTING 92 MG/DL (70-105); POTASSIUM SERUM 3.7 MEQ/L (3.5-5.1); SODIUM LEVEL 139 MEQ/L (136-145); TOTAL PROTEIN 7.9 GM/DL (6.4-8.2)
[2017-06-13 11:56] VITALS: BP 123/80
[2017-07-06] MEDS ORDERED: CYCL10TA (10:42)
[2017-07-06] MEDS ORDERED: NORCOTAB PO ×2 (14:52→15:36)
== END 2017-06-13 11:58 | disposition home or self-care (01) ==
LOC: M ED 08:14
DX: R10.2 Pelvic and perineal pain (principal); R11.0 Nausea; R07.89 Other chest pain; K27.9 Peptic ulcer, site unspecified, unspecified as acute or chronic, without hemorrhage or perforation; Z87.442 Personal history of urinary calculi; Z87.440 Personal history of urinary (tract) infections; N80.9 Endometriosis, unspecified; N83.299 Other ovarian cyst, unspecified side; F41.9 Anxiety disorder, unspecified; F32.9 Major depressive disorder, single episode, unspecified; Z79.899 Other long term (current) drug therapy; Z88.5 Allergy status to narcotic agent; Z88.2 Allergy status to sulfonamides; Z88.1 Allergy status to other antibiotic agents
CPT/HCPCS: 80053; 81001; 85025; 87086; 94760; 96374; 96375; 96376; 99284; J1170; J2405

== ENCOUNTER 2017-06-17 09:15 | Emergency (ER) | payer OTHER ==
[~2017-06-17] VITALS: Ht 154.9 cm; Wt 76.8 kg
[2017-06-17] MEDS ORDERED: ULTR50TA8 PO (09:30)
[2017-06-17] MEDS ORDERED: PROMETHAZINE INJ 25 MG/ML VIAL (J2550) IM ONE (10:00)
[2017-06-17] MEDS ORDERED: PHEN1SUP6 PR (10:23)
[2017-06-17 10:31] VITALS: BP 118/81
[2017-07-06] MEDS ORDERED: CYCL10TA (10:42)
[2017-07-06] MEDS ORDERED: NORCOTAB PO ×2 (14:52→15:36)
== END 2017-06-17 10:32 | disposition home or self-care (01) ==
LOC: M ED 09:15
DX: G89.29 Other chronic pain (principal); R10.2 Pelvic and perineal pain; R11.2 Nausea with vomiting, unspecified; F32.9 Major depressive disorder, single episode, unspecified; N80.9 Endometriosis, unspecified; Z79.899 Other long term (current) drug therapy; Z88.5 Allergy status to narcotic agent; Z88.2 Allergy status to sulfonamides; Z88.1 Allergy status to other antibiotic agents

== ENCOUNTER 2017-06-19 08:48 | Emergency (ER) | payer OTHER ==
[~2017-06-19] VITALS: Ht 154.9 cm; Wt 76.8 kg
[~2017-06-19 08:48] MED LIST changes: +ULTR50TA8 PO
[2017-06-19 08:49] VITALS: BP 121/100
[2017-06-19] MEDS ORDERED: DOXY100T (09:09)
[2017-06-19] MEDS ORDERED: PERCOCET 5MG/325MG TAB PO ONE (09:45)
[2017-06-19] MEDS ORDERED: KETO10TAB PO (09:54)
[2017-07-06] MEDS ORDERED: CYCL10TA (10:42)
[2017-07-06] MEDS ORDERED: NORCOTAB PO ×2 (14:52→15:36)
== END 2017-06-19 10:00 | disposition home or self-care (01) ==
LOC: M ED 08:48
DX: R10.2 Pelvic and perineal pain (principal); Z79.899 Other long term (current) drug therapy; Z88.5 Allergy status to narcotic agent; Z88.2 Allergy status to sulfonamides; Z88.1 Allergy status to other antibiotic agents

== ENCOUNTER 2017-06-20 08:08 | Emergency (ER) | payer OTHER ==
[~2017-06-20] VITALS: Ht 154.9 cm; Wt 76.8 kg
[~2017-06-20 08:08] MED LIST changes: +DOXY100T
[2017-06-20 08:23] VITALS: BP 126/95
[2017-07-06] MEDS ORDERED: CYCL10TA (10:42)
[2017-07-06] MEDS ORDERED: NORCOTAB PO ×2 (14:52→15:36)
== END 2017-06-20 09:48 | disposition left against medical advice (07) ==
LOC: M ED 08:08
DX: R52 Pain, unspecified (principal); Z53.21 Procedure and treatment not carried out due to patient leaving prior to being seen by health care provider; R07.9 Chest pain, unspecified; Z87.74 Personal history of (corrected) congenital malformations of heart and circulatory system; K27.9 Peptic ulcer, site unspecified, unspecified as acute or chronic, without hemorrhage or perforation; K92.2 Gastrointestinal hemorrhage, unspecified; K21.9 Gastro-esophageal reflux disease without esophagitis; Z87.440 Personal history of urinary (tract) infections; Z87.442 Personal history of urinary calculi; N80.9 Endometriosis, unspecified; N83.299 Other ovarian cyst, unspecified side; G89.29 Other chronic pain; R10.2 Pelvic and perineal pain; F41.9 Anxiety disorder, unspecified; F32.9 Major depressive disorder, single episode, unspecified; Z79.899 Other long term (current) drug therapy; Z88.5 Allergy status to narcotic agent; Z88.2 Allergy status to sulfonamides; Z88.1 Allergy status to other antibiotic agents

== ENCOUNTER 2017-06-25 10:44 | Emergency (ER) | payer OTHER ==
[~2017-06-25] VITALS: Ht 162.6 cm; Wt 76.8 kg
[2017-06-25] MEDS ORDERED: KETOROLAC 30 MG/ML VIAL (J1885) IV ONE (11:15)
[2017-06-25] MEDS ORDERED: ONDANSETRON 4MG/2ML VIAL (J2405) IV ONE (11:15)
[2017-06-25 11:47] LABS: BASO % 0.6 % (0.0-1.0); EOS # 0.4 10^3/uL (0.0-0.50); EOS % 7.4 % (0.0-3.0); IMMATURE GRANULOCYTE % 0.2 % (0-0); LYMPH % 40.8 % (24.0-44.0); MEAN CORPUSCULAR HEMOGLOBIN 29.1 pg (27.0-33.0); MEAN CORPUSCULAR HGB CONC 33.3 g/dl (32.0-36.5); MEAN CORPUSCULAR VOLUME 87.4 fl (80.0-96.0); MONO # 0.4 10^3/uL (0.0-0.8); MONO % 7.8 % (0.0-5.0); NEUTROPHILS # 2.1 10^3/uL (1.8-7.7); NEUTROPHILS % 43.2 % (36.0-66.0); PLATELET COUNT, AUTOMATED 255 10^3/uL (150-450)
[2017-06-25 12:14] LABS: ALBUMIN/GLOBULIN RATIO 0.91 (1.00-1.93); ALKALINE PHOSPHATASE 73 U/L (45-117); ALT/SGPT 21 U/L (12-78); ANION GAP 7 MEQ/L (8-16); AST/SGOT 15 U/L (15-37); BILIRUBIN,DIRECT < 0.1 MG/DL (0.0-0.2); BILIRUBIN,TOTAL 0.2 MG/DL (0.2-1.0); BLOOD UREA NITROGEN 8 MG/DL (7-18); CALCIUM LEVEL 9.6 MG/DL (8.5-10.1); CARBON DIOXIDE LEVEL 29 MEQ/L (21-32); CHLORIDE LEVEL 104 MEQ/L (98-107); GLOMERULAR FILTRATION RATE > 60.0 (>60); GLUCOSE, FASTING 104 MG/DL (70-105); POTASSIUM SERUM 3.9 MEQ/L (3.5-5.1); SODIUM LEVEL 140 MEQ/L (136-145); TOTAL PROTEIN 8.4 GM/DL (6.4-8.2)
[2017-06-25] MEDS ORDERED: ISOVUE-370 76% 100ML VIAL (Q9967) As Ordered ONE (12:16)
--- NOTE | 2017-06-25 12:54 | REP ---
CT ABDOMEN AND PELVIS WITH IV CONTRAST: TECHNIQUE: Axial contrast enhanced images from the lung bases to the pubic symphysis using 100 mL Isovue 370 intravenous contrast material with multiplanar reformations. Visualized lung bases demonstrates no evidence of acute infiltrate. The liver, spleen, adrenals, pancreas, and kidneys are normal in appearance. There if focal fatty infiltration of the liver anteriorly and the patient has had a prior cholecystectomy. There is no hydronephrosis. There is abnormal aortic aneurysm. There is no adenopathy. There is no free air or free fluid. There is no bowel wall thickening. There is no evidence of appendicitis. No pelvic mass is seen. Urinary bladder is grossly unremarkable. IMPRESSION: No acute abnormality is detected. Signed by Ab Ballesteros MD 06/25/2017 02:38 P
[2017-06-25] MEDS ORDERED: fentaNYL 100 MCG/2 ML INJECTION (J3010) IV ONE ×2 (13:15→13:45)
[2017-06-25] MEDS ORDERED: INDO25CA PO (13:40)
[2017-06-25 14:03] VITALS: BP 108/72
[2017-07-06] MEDS ORDERED: CYCL10TA (10:42)
[2017-07-06] MEDS ORDERED: NORCOTAB PO ×2 (14:52→15:36)
== END 2017-06-25 14:05 | disposition home or self-care (01) ==
LOC: M ED 10:44
DX: R10.2 Pelvic and perineal pain (principal); Z87.74 Personal history of (corrected) congenital malformations of heart and circulatory system; K27.9 Peptic ulcer, site unspecified, unspecified as acute or chronic, without hemorrhage or perforation; Z87.442 Personal history of urinary calculi; Z87.440 Personal history of urinary (tract) infections; Z87.42 Personal history of other diseases of the female genital tract; F41.9 Anxiety disorder, unspecified; F32.9 Major depressive disorder, single episode, unspecified; Z79.899 Other long term (current) drug therapy; Z88.5 Allergy status to narcotic agent; Z88.2 Allergy status to sulfonamides; Z88.1 Allergy status to other antibiotic agents
CPT/HCPCS: 74177; 80048; 80076; 83605; 83690; 85025; 96374; 96375; 96376; 99284; J1885; J2405; J3010; Q9967

== ENCOUNTER → 2017-07-13 | Outpatient (REF) | payer OTHER ==
[~2017-07-13] MED LIST changes: +CYCL10TA; +INDO25CA PO
== END ==
LOC: M LAB REF 16:35
PROVIDERS: ATTEND Nurse Practitioner Women's Health
DX: N39.0 Urinary tract infection, site not specified (principal)

== ENCOUNTER 2017-07-25 11:54 | Emergency (ER) | payer OTHER ==
[~2017-07-25] VITALS: Ht 154.9 cm; Wt 80.8 kg
[~2017-07-25 11:54] MED LIST changes: -CYCL10TA; +CYCL10TA PO
[2017-07-25] MEDS ORDERED: HYDROmorphone 2 MG TAB PO ONE ×2 (14:15→17:15)
[2017-07-25] MEDS ORDERED: ONDANSETRON 4 MG ORAL DISINTEGRATING TAB (S0181) PO ONE (17:30)
[2017-07-25 17:45] VITALS: BP 121/83
== END 2017-07-25 18:27 | disposition home or self-care (01) ==
LOC: M ED 11:54
DX: R10.2 Pelvic and perineal pain (principal); K27.9 Peptic ulcer, site unspecified, unspecified as acute or chronic, without hemorrhage or perforation; F41.9 Anxiety disorder, unspecified; Z79.899 Other long term (current) drug therapy; Z88.6 Allergy status to analgesic agent; Z88.0 Allergy status to penicillin; Z88.1 Allergy status to other antibiotic agents

== ENCOUNTER 2017-07-26 07:58 | Emergency (ER) | payer OTHER ==
[~2017-07-26] VITALS: Ht 154.9 cm; Wt 76.8 kg
[2017-07-26] MEDS ORDERED: ONDANSETRON 4MG/2ML VIAL (J2405) IV ONE (08:45)
[2017-07-26] MEDS ORDERED: NS 500 ML IV ONE (08:45)
[2017-07-26] MEDS: HYDROmorphone HCL 1 MG/ML SYRINGE (J1170) IV PRN ×2 (09:30→10:02)
[2017-07-26] MEDS ORDERED: HYDROmorphone HCL 1 MG/ML SYRINGE (J1170) IV ONE (11:00)
[2017-07-26 11:24] VITALS: BP 123/80
== END 2017-07-26 11:39 | disposition home or self-care (01) ==
LOC: M ED 07:58
DX: G89.29 Other chronic pain (principal); R10.2 Pelvic and perineal pain; K27.9 Peptic ulcer, site unspecified, unspecified as acute or chronic, without hemorrhage or perforation; N80.9 Endometriosis, unspecified; Z79.899 Other long term (current) drug therapy; Z88.5 Allergy status to narcotic agent; Z88.2 Allergy status to sulfonamides; Z88.1 Allergy status to other antibiotic agents
CPT/HCPCS: 96374; 96375; 96376; 99284; J1170; J2405

== ENCOUNTER 2017-08-02 07:06 | Emergency (ER) | payer OTHER ==
[~2017-08-02] VITALS: Ht 154.9 cm; Wt 77.3 kg
[2017-08-02] MEDS ORDERED: HYDROmorphone HCL 1 MG/ML SYRINGE (J1170) IM ONE (08:15)
[2017-08-02] MEDS ORDERED: ONDANSETRON 4 MG ORAL DISINTEGRATING TAB (S0181) PO ONE (08:15)
[2017-08-02 08:54] VITALS: BP 112/77
[2017-08-03] MEDS ORDERED: TRAM50TA2 PO (12:52)
[2017-08-03] MEDS ORDERED: IBUP80TA PO (12:52)
== END 2017-08-02 08:58 | disposition home or self-care (01) ==
LOC: M ED 07:06
DX: G89.29 Other chronic pain (principal); R10.2 Pelvic and perineal pain; Z79.899 Other long term (current) drug therapy; Z88.5 Allergy status to narcotic agent; Z88.2 Allergy status to sulfonamides; Z88.1 Allergy status to other antibiotic agents
CPT/HCPCS: 96372; 99283; J1170

== ENCOUNTER 2017-08-02 16:05 | Emergency (ER) | payer OTHER ==
[~2017-08-02] VITALS: Ht 154.9 cm; Wt 77.3 kg
[2017-08-02] MEDS ORDERED: ONDANSETRON 4 MG TAB (S0181) PO ONE (16:45)
[2017-08-02] MEDS ORDERED: HYDROmorphone 2 MG TAB PO ONE (16:45)
[2017-08-02] MEDS ORDERED: PERCOCET 5MG/325MG TAB PO ONE (17:45)
[2017-08-02 17:58] VITALS: BP 111/78
[2017-08-03] MEDS ORDERED: TRAM50TA2 PO (12:52)
[2017-08-03] MEDS ORDERED: IBUP80TA PO (12:52)
== END 2017-08-02 18:02 | disposition home or self-care (01) ==
LOC: M ED 16:05
DX: G89.29 Other chronic pain (principal); R10.2 Pelvic and perineal pain; R10.31 Right lower quadrant pain; N80.9 Endometriosis, unspecified; Z79.899 Other long term (current) drug therapy; Z88.5 Allergy status to narcotic agent; Z88.2 Allergy status to sulfonamides; Z88.1 Allergy status to other antibiotic agents

== ENCOUNTER 2017-08-03 10:29 | Emergency (ER) | payer OTHER ==
[~2017-08-03] VITALS: Ht 154.9 cm; Wt 77.3 kg
[2017-08-03] MEDS ORDERED: KETOROLAC 60 MG/2 ML VIAL (J1885) IM ONE (12:15)
[2017-08-03] MEDS ORDERED: TRAM50TA2 PO (12:52)
[2017-08-03] MEDS ORDERED: IBUP80TA PO (12:52)
[2017-08-03 13:00] VITALS: BP 143/82
== END 2017-08-03 13:35 | disposition home or self-care (01) ==
LOC: M ED 10:29
DX: R10.9 Unspecified abdominal pain (principal); G89.29 Other chronic pain; N80.9 Endometriosis, unspecified; F41.9 Anxiety disorder, unspecified; K21.9 Gastro-esophageal reflux disease without esophagitis; Z79.899 Other long term (current) drug therapy; Z88.5 Allergy status to narcotic agent; Z88.1 Allergy status to other antibiotic agents; Z88.2 Allergy status to sulfonamides
CPT/HCPCS: 96372; 99283; J1885

== ENCOUNTER → 2017-08-05 | Outpatient (CLI) | payer OTHER | LOC: M PAIN 11:30 | DX: R10.2 Pelvic and perineal pain (principal); Z79.899 Other long term (current) drug therapy; Z88.8 Allergy status to other drugs, medicaments and biological substances | CPT/HCPCS: G0463 ==

== ENCOUNTER → 2017-09-01 | Outpatient (CLI) | payer OTHER | LOC: M PAIN 10:30 | DX: G89.29 Other chronic pain (principal); R10.2 Pelvic and perineal pain; F41.9 Anxiety disorder, unspecified; Z88.5 Allergy status to narcotic agent; Z88.8 Allergy status to other drugs, medicaments and biological substances; Z79.891 Long term (current) use of opiate analgesic; Z79.899 Other long term (current) drug therapy | CPT/HCPCS: G0463 ==

== ENCOUNTER 2017-09-16 08:58 | Emergency (ER) | payer OTHER ==
[2017-09-16] MEDS: ONDANSETRON 4 MG ORAL DISINTEGRATING TAB (S0181) PO (09:37)
[2017-09-16] MEDS: HYDROmorphone HCL 1 MG/ML SYRINGE (J1170) IM (09:38)
== END 2017-09-16 10:17 | disposition home or self-care (01) ==
LOC: M ED 08:58
DX: R10.2 Pelvic and perineal pain (principal); G89.29 Other chronic pain; R11.2 Nausea with vomiting, unspecified; Z87.42 Personal history of other diseases of the female genital tract; N80.9 Endometriosis, unspecified; K21.9 Gastro-esophageal reflux disease without esophagitis; F41.9 Anxiety disorder, unspecified; F32.9 Major depressive disorder, single episode, unspecified; Z87.74 Personal history of (corrected) congenital malformations of heart and circulatory system; Z90.710 Acquired absence of both cervix and uterus; Z87.442 Personal history of urinary calculi; Z87.440 Personal history of urinary (tract) infections; Z88.5 Allergy status to narcotic agent; Z88.1 Allergy status to other antibiotic agents; Z88.2 Allergy status to sulfonamides; Z79.899 Other long term (current) drug therapy
CPT/HCPCS: J1170

== ENCOUNTER 2017-09-17 09:21 | Emergency (ER) | payer OTHER ==
[2017-09-17] MEDS: HYDROmorphone 2 MG TAB PO (10:15)
== END 2017-09-17 10:19 | disposition home or self-care (01) ==
LOC: M ED 09:21
DX: R10.2 Pelvic and perineal pain (principal); G89.29 Other chronic pain; R11.0 Nausea; Z88.5 Allergy status to narcotic agent; Z88.2 Allergy status to sulfonamides; Z88.1 Allergy status to other antibiotic agents; Z79.899 Other long term (current) drug therapy
CPT/HCPCS: 99282

== ENCOUNTER → 2017-09-25 | Outpatient (CLI) | payer OTHER | LOC: M PAIN 10:00 | DX: G89.29 Other chronic pain (principal); R10.2 Pelvic and perineal pain; F41.9 Anxiety disorder, unspecified; Z88.5 Allergy status to narcotic agent; Z88.8 Allergy status to other drugs, medicaments and biological substances; Z79.891 Long term (current) use of opiate analgesic; Z79.899 Other long term (current) drug therapy | CPT/HCPCS: G0463 ==

== ENCOUNTER 2017-10-05 12:18 | Emergency (ER) | payer OTHER ==
[2017-10-05 15:44] LABS: APPEARANCE, URINE CLEAR (CLEAR); BACTERIA, URINE AUTO 2+ (NEGATIVE); BILIRUBIN, URINE AUTO NEGATIVE (NEGATIVE); BLOOD, URINE BLOOD NEGATIVE (NEGATIVE); COLOR, URINE STRAW (YELLOW); GLUCOSE, URINE (UA) AUTO NEGATIVE (NEGATIVE); KETONE, URINE AUTO NEGATIVE (NEGATIVE); LEUKOCYTE ESTERASE, URINE AUTO NEGATIVE (NEGATIVE); NITRITE, URINE AUTO NEGATIVE (NEGATIVE); PROTEIN, URINE AUTO NEGATIVE (NEGATIVE); RBC, URINE AUTO 1 /HPF (0-3); SPECIFIC GRAVITY URINE AUTO 1.004 (1.002-1.035); SQUAMOUS EPITHELIAL CELL UR AU 0 /HPF (0-6); UROBILINOGEN, URINE AUTO 0.2 mg/dL (0.0-2.0); WBC, URINE AUTO 0 /HPF (0-3)
[2017-10-05] MEDS: GASTROGRAFIN SOLUTION 30ML PO ×2 (16:30)
[2017-10-05] MEDS: fentaNYL 100 MCG/2 ML INJECTION (J3010) IM (16:52)
[2017-10-05 17:30] LABS: BASO % 0.3 % (0.0-1.0); EOS # 0.4 10^3/uL (0.0-0.50); HEMATOCRIT 38.3 % (36.0-47.0); IMMATURE GRANULOCYTE % 0.1 % (0-0); LYMPH # 2.3 10^3/uL (1.5-4.5); LYMPH % 33.1 % (24.0-44.0); MEAN CORPUSCULAR HEMOGLOBIN 28.9 pg (27.0-33.0); MEAN CORPUSCULAR HGB CONC 33.9 g/dl (32.0-36.5); MEAN CORPUSCULAR VOLUME 85.1 fl (80.0-96.0); MONO # 0.4 10^3/uL (0.0-0.8); MONO % 6.2 % (0.0-5.0); NEUTROPHILS # 3.7 10^3/uL (1.8-7.7); NEUTROPHILS % 54.3 % (36.0-66.0); PLATELET COUNT, AUTOMATED 268 10^3/uL (150-450); RED CELL DISTRIBUTION WIDTH 13.2 % (11.5-14.5); WHITE BLOOD COUNT 6.8 10^3/uL (4.0-10.0)
[2017-10-05] MEDS: ONDANSETRON 4MG/2ML VIAL (J2405) IV (17:30)
[2017-10-05 17:55] LABS: ANION GAP 11 MEQ/L (8-16); BLOOD UREA NITROGEN 7 MG/DL (7-18); CARBON DIOXIDE LEVEL 23 MEQ/L (21-32); CHLORIDE LEVEL 109 MEQ/L (98-107); CREATININE FOR GFR 0.74 MG/DL (0.55-1.30); GLOMERULAR FILTRATION RATE > 60.0 (>60); GLUCOSE, FASTING 78 MG/DL (70-100); LIPASE 99 U/L (73-393); POTASSIUM SERUM 3.5 MEQ/L (3.5-5.1); SODIUM LEVEL 143 MEQ/L (136-145)
[2017-10-05] MEDS ORDERED: ISOVUE-370 76% 100ML VIAL (Q9967) As Ordered (18:06)
[2017-10-05] MEDS: HYDROmorphone HCL 1 MG/ML SYRINGE (J1170) IV (18:36)
== END 2017-10-05 19:13 | disposition home or self-care (01) ==
LOC: M ED 12:18
DX: G89.29 Other chronic pain (principal); R10.31 Right lower quadrant pain; F41.9 Anxiety disorder, unspecified; F32.9 Major depressive disorder, single episode, unspecified; R10.2 Pelvic and perineal pain; N80.9 Endometriosis, unspecified; Z79.899 Other long term (current) drug therapy; Z88.5 Allergy status to narcotic agent; Z88.2 Allergy status to sulfonamides; Z88.1 Allergy status to other antibiotic agents
CPT/HCPCS: J1170

== ENCOUNTER 2017-10-08 08:58 | Emergency (ER) | payer OTHER ==
[2017-10-08] MEDS: PERCOCET 5MG/325MG TAB PO (09:44)
[2017-10-08 09:53] LABS: BASO % 0.6 % (0.0-1.0); EOS # 0.3 10^3/uL (0.0-0.50); EOS % 7.1 % (0.0-3.0); HEMOGLOBIN 12.7 g/dl (12.0-16.0); IMMATURE GRANULOCYTE % 0.2 % (0-3.0); LYMPH # 0.9 10^3/uL (1.5-4.5); LYMPH % 18.4 % (24.0-44.0); MEAN CORPUSCULAR HEMOGLOBIN 29.2 pg (27.0-33.0); MEAN CORPUSCULAR HGB CONC 33.4 g/dl (32.0-36.5); MEAN CORPUSCULAR VOLUME 87.4 fl (80.0-96.0); MONO # 0.3 10^3/uL (0.0-0.8); MONO % 7.1 % (0.0-5.0); NEUTROPHILS # 3.2 10^3/uL (1.8-7.7); NEUTROPHILS % 66.6 % (36.0-66.0); PLATELET COUNT, AUTOMATED 207 10^3/uL (150-450); RED BLOOD COUNT 4.35 10^6/uL (4.00-5.40); RED CELL DISTRIBUTION WIDTH 13.1 % (11.5-14.5); WHITE BLOOD COUNT 4.8 10^3/uL (4.0-10.0)
[2017-10-08 10:25] LABS: ALBUMIN 3.9 GM/DL (3.2-5.2); ALBUMIN/GLOBULIN RATIO 0.95 (1.00-1.93); ALKALINE PHOSPHATASE 55 U/L (45-117); ALT/SGPT 16 U/L (12-78); ANION GAP 8 MEQ/L (8-16); AST/SGOT 16 U/L (7-37); BILIRUBIN,DIRECT < 0.1 MG/DL (0.0-0.2); BILIRUBIN,TOTAL 0.2 MG/DL (0.2-1.0); BLOOD UREA NITROGEN 10 MG/DL (7-18); CALCIUM LEVEL 8.8 MG/DL (8.5-10.1); CARBON DIOXIDE LEVEL 25 MEQ/L (21-32); CHLORIDE LEVEL 106 MEQ/L (98-107); CREATININE FOR GFR 0.78 MG/DL (0.55-1.30); GLOMERULAR FILTRATION RATE > 60.0 (>60); GLUCOSE, FASTING 88 MG/DL (70-100); POTASSIUM SERUM 4.1 MEQ/L (3.5-5.1); SODIUM LEVEL 139 MEQ/L (136-145)
== END 2017-10-08 10:45 | disposition home or self-care (01) ==
LOC: M ED 08:58
DX: R10.2 Pelvic and perineal pain (principal); G89.29 Other chronic pain; R11.0 Nausea; R19.7 Diarrhea, unspecified; K27.9 Peptic ulcer, site unspecified, unspecified as acute or chronic, without hemorrhage or perforation; K21.9 Gastro-esophageal reflux disease without esophagitis; N80.9 Endometriosis, unspecified; F41.9 Anxiety disorder, unspecified; F32.9 Major depressive disorder, single episode, unspecified; Z87.442 Personal history of urinary calculi; Z87.440 Personal history of urinary (tract) infections; Z79.899 Other long term (current) drug therapy; Z88.5 Allergy status to narcotic agent; Z88.1 Allergy status to other antibiotic agents; Z88.2 Allergy status to sulfonamides
CPT/HCPCS: 80076

== ENCOUNTER 2017-10-13 09:01 | Emergency (ER) | payer OTHER ==
[2017-10-13 10:05] LABS: KETONE, URINE AUTO RFX NEGATIVE (NEGATIVE); LEUKOCYTE ESTERASE UR AUTO RFX NEGATIVE (NEGATIVE); NITRITE, URINE AUTO RFX NEGATIVE (NEGATIVE); RBC, URINE AUTO RFX 2 /HPF (0-3); SPECIFIC GRAVITY UR AUTO RFX 1.006 (1.002-1.035); SQUAM EPITHELIAL CELL UR AURFX 2 /HPF (0-6); WBC, URINE AUTO RFX 3 /HPF (0-3)
== END 2017-10-13 10:52 | disposition home or self-care (01) ==
LOC: M ED 09:01
DX: N80.9 Endometriosis, unspecified (principal); T83.718A Erosion of other implanted mesh to organ or tissue, initial encounter; Y73.2 Prosthetic and other implants, materials and accessory gastroenterology and urology devices associated with adverse incidents; R10.2 Pelvic and perineal pain; K27.9 Peptic ulcer, site unspecified, unspecified as acute or chronic, without hemorrhage or perforation; Z88.5 Allergy status to narcotic agent; Z88.1 Allergy status to other antibiotic agents; Z88.2 Allergy status to sulfonamides; Z79.899 Other long term (current) drug therapy
CPT/HCPCS: 81001

== ENCOUNTER → 2017-10-19 | Outpatient (CLI) | payer OTHER | LOC: M PAIN 09:45 | DX: R10.2 Pelvic and perineal pain (principal); G62.9 Polyneuropathy, unspecified; F41.9 Anxiety disorder, unspecified; Z79.891 Long term (current) use of opiate analgesic; Z79.899 Other long term (current) drug therapy; Z88.1 Allergy status to other antibiotic agents; Z88.5 Allergy status to narcotic agent | CPT/HCPCS: G0463 ==

== ENCOUNTER 2017-10-20 07:24 | Outpatient (CLI) | payer OTHER ==
[2017-10-20] MEDS ORDERED: fentaNYL 100 MCG/2 ML INJECTION (J3010) As Ordered (07:31)
[2017-10-20] MEDS ORDERED: MIDAZOLAM INJ 2 MG/2 ML VIAL (J2250) As Ordered ×2 (07:31→09:20)
== END 2017-10-20 12:08 | disposition home or self-care (01) ==
LOC: M RAD 07:24
DX: R10.2 Pelvic and perineal pain (principal)

== ENCOUNTER 2017-11-04 10:44 | Emergency (ER) | payer OTHER ==
[2017-11-04] MEDS: HYDROmorphone 2 MG TAB PO (12:24)
== END 2017-11-04 12:35 | disposition home or self-care (01) ==
LOC: M ED 10:44
DX: R10.2 Pelvic and perineal pain (principal); G89.29 Other chronic pain; N80.9 Endometriosis, unspecified; K21.9 Gastro-esophageal reflux disease without esophagitis; Z79.890 Hormone replacement therapy; Z79.899 Other long term (current) drug therapy; Z88.5 Allergy status to narcotic agent; Z88.1 Allergy status to other antibiotic agents; Z88.2 Allergy status to sulfonamides; Z87.74 Personal history of (corrected) congenital malformations of heart and circulatory system; Z98.890 Other specified postprocedural states; Z87.448 Personal history of other diseases of urinary system
CPT/HCPCS: 99283

== ENCOUNTER 2017-11-07 07:01 | Emergency (ER) | payer OTHER ==
[2017-11-07] MEDS: HYDROmorphone HCL 1 MG/ML SYRINGE (J1170) IM (07:33)
[2017-11-07] MEDS: ONDANSETRON 4 MG ORAL DISINTEGRATING TAB (S0181) PO (07:33)
== END 2017-11-07 07:44 | disposition home or self-care (01) ==
LOC: M ED 07:01
DX: R10.2 Pelvic and perineal pain (principal); G89.29 Other chronic pain; K21.9 Gastro-esophageal reflux disease without esophagitis; F33.9 Major depressive disorder, recurrent, unspecified; Z79.899 Other long term (current) drug therapy; Z88.5 Allergy status to narcotic agent; Z88.1 Allergy status to other antibiotic agents; Z88.2 Allergy status to sulfonamides; Z88.8 Allergy status to other drugs, medicaments and biological substances; Z87.442 Personal history of urinary calculi; Z98.890 Other specified postprocedural states; Z86.79 Personal history of other diseases of the circulatory system
CPT/HCPCS: J1170

== ENCOUNTER 2017-11-08 08:48 | Emergency (ER) | payer OTHER ==
[2017-11-08 09:57] LABS: BASO % 0.5 % (0.0-1.0); EOS # 0.6 10^3/uL (0.0-0.50); EOS % 10.9 % (0.0-3.0); HEMATOCRIT 38.6 % (36.0-47.0); HEMOGLOBIN 12.9 g/dl (12.0-16.0); IMMATURE GRANULOCYTE % 0.2 % (0-3.0); LYMPH % 34.4 % (24.0-44.0); MEAN CORPUSCULAR HEMOGLOBIN 28.9 pg (27.0-33.0); MEAN CORPUSCULAR HGB CONC 33.4 g/dl (32.0-36.5); MEAN CORPUSCULAR VOLUME 86.5 fl (80.0-96.0); MONO # 0.4 10^3/uL (0.0-0.8); MONO % 6.3 % (0.0-5.0); NEUTROPHILS # 2.7 10^3/uL (1.8-7.7); NEUTROPHILS % 47.7 % (36.0-66.0); PLATELET COUNT, AUTOMATED 243 10^3/uL (150-450); RED BLOOD COUNT 4.46 10^6/uL (4.00-5.40); RED CELL DISTRIBUTION WIDTH 13.6 % (11.5-14.5); WHITE BLOOD COUNT 5.7 10^3/uL (4.0-10.0)
[2017-11-08 10:02] LABS: APPEARANCE, URINE CLEAR (CLEAR); BACTERIA, URINE AUTO 2+ (NEGATIVE); BILIRUBIN, URINE AUTO NEGATIVE (NEGATIVE); BLOOD, URINE BLOOD NEGATIVE (NEGATIVE); COLOR, URINE STRAW (YELLOW); GLUCOSE, URINE (UA) AUTO NEGATIVE (NEGATIVE); KETONE, URINE AUTO NEGATIVE (NEGATIVE); LEUKOCYTE ESTERASE, URINE AUTO NEGATIVE (NEGATIVE); NITRITE, URINE AUTO NEGATIVE (NEGATIVE); PROTEIN, URINE AUTO NEGATIVE (NEGATIVE); RBC, URINE AUTO 1 /HPF (0-3); SPECIFIC GRAVITY URINE AUTO 1.002 (1.002-1.035); SQUAMOUS EPITHELIAL CELL UR AU 0 /HPF (0-6); UROBILINOGEN, URINE AUTO 0.2 mg/dL (0.0-2.0); WBC, URINE AUTO 0 /HPF (0-3)
[2017-11-08 10:11] LABS: ALBUMIN 3.7 GM/DL (3.2-5.2); ALBUMIN/GLOBULIN RATIO 0.95 (1.00-1.93); ALKALINE PHOSPHATASE 59 U/L (45-117); ALT/SGPT 15 U/L (12-78); ANION GAP 7 MEQ/L (8-16); AST/SGOT 13 U/L (7-37); BILIRUBIN,TOTAL 0.2 MG/DL (0.2-1.0); BLOOD UREA NITROGEN 10 MG/DL (7-18); CALCIUM LEVEL 9.1 MG/DL (8.5-10.1); CARBON DIOXIDE LEVEL 27 MEQ/L (21-32); CHLORIDE LEVEL 105 MEQ/L (98-107); CREATININE FOR GFR 0.74 MG/DL (0.55-1.30); GLOMERULAR FILTRATION RATE > 60.0 (>60); GLUCOSE, FASTING 85 MG/DL (70-100); POTASSIUM SERUM 4.4 MEQ/L (3.5-5.1); SODIUM LEVEL 139 MEQ/L (136-145); TOTAL PROTEIN 7.6 GM/DL (6.4-8.2)
[2017-11-08] MEDS: KETOROLAC 60 MG/2 ML VIAL (J1885) IM (10:38)
[2017-11-08 12:05] LABS: CHLAMYDIA DNA AMPLIFICATION NEGATIVE (NEGATIVE); GC DNA AMPLIFICATION NEGATIVE (NEGATIVE)
== END 2017-11-08 11:50 | disposition home or self-care (01) ==
LOC: M ED 08:48
DX: R10.2 Pelvic and perineal pain (principal); G89.29 Other chronic pain; K21.9 Gastro-esophageal reflux disease without esophagitis; F33.9 Major depressive disorder, recurrent, unspecified; F41.9 Anxiety disorder, unspecified; Z79.890 Hormone replacement therapy; Z79.899 Other long term (current) drug therapy; Z98.890 Other specified postprocedural states; Z96.9 Presence of functional implant, unspecified; Z88.8 Allergy status to other drugs, medicaments and biological substances; Z88.5 Allergy status to narcotic agent; Z88.1 Allergy status to other antibiotic agents; Z88.2 Allergy status to sulfonamides; Z87.74 Personal history of (corrected) congenital malformations of heart and circulatory system; Z87.19 Personal history of other diseases of the digestive system; Z87.442 Personal history of urinary calculi; Z87.440 Personal history of urinary (tract) infections; Z87.11 Personal history of peptic ulcer disease
CPT/HCPCS: J1885

== ENCOUNTER → 2017-11-11 | Outpatient (CLI) | payer OTHER | LOC: M PAIN 14:30 | DX: R10.2 Pelvic and perineal pain (principal); G62.9 Polyneuropathy, unspecified; G89.29 Other chronic pain; F41.9 Anxiety disorder, unspecified; Z79.899 Other long term (current) drug therapy; Z88.5 Allergy status to narcotic agent; Z88.8 Allergy status to other drugs, medicaments and biological substances | CPT/HCPCS: G0463 ==

== ENCOUNTER → 2017-11-25 | Outpatient (CLI) | payer OTHER | LOC: M PAIN 09:30 | DX: R10.2 Pelvic and perineal pain (principal); G62.9 Polyneuropathy, unspecified; F41.9 Anxiety disorder, unspecified; Z79.899 Other long term (current) drug therapy; Z88.5 Allergy status to narcotic agent; Z88.8 Allergy status to other drugs, medicaments and biological substances; Z79.891 Long term (current) use of opiate analgesic | CPT/HCPCS: G0463 ==

== ENCOUNTER 2017-12-23 11:31 | Emergency (ER) | payer OTHER ==
[2017-12-23] MEDS: PANTOPRAZOLE 40MG INJ (PROTONIX) (C9113) IV (12:25)
[2017-12-23] MEDS: ONDANSETRON 4MG/2ML VIAL (J2405) IV (12:25)
[2017-12-23] MEDS: NS 1,000 ML IV (12:25)
[2017-12-23] MEDS: GI COCKTAIL 50ML BTL(HYOSCYAMINE/MAALOX/LIDOCAINE VISCOUS)(1:3:1) PO (12:25)
[2017-12-23 12:34] LABS: BASO % 0.4 % (0.0-1.0); EOS # 0.6 10^3/uL (0.0-0.50); EOS % 8.9 % (0.0-3.0); HEMATOCRIT 41.5 % (36.0-47.0); IMMATURE GRANULOCYTE % 0.1 % (0-3.0); LYMPH # 2.6 10^3/uL (1.5-4.5); LYMPH % 39.2 % (24.0-44.0); MEAN CORPUSCULAR HGB CONC 33.7 g/dl (32.0-36.5); MEAN CORPUSCULAR VOLUME 86.1 fl (80.0-96.0); MONO # 0.4 10^3/uL (0.0-0.8); MONO % 5.5 % (0.0-5.0); NEUTROPHILS # 3.1 10^3/uL (1.8-7.7); NEUTROPHILS % 45.9 % (36.0-66.0); PLATELET COUNT, AUTOMATED 324 10^3/uL (150-450); RED BLOOD COUNT 4.82 10^6/uL (4.00-5.40); WHITE BLOOD COUNT 6.7 10^3/uL (4.0-10.0)
[2017-12-23 12:39] LABS: KETONE, URINE AUTO RFX NEGATIVE (NEGATIVE); LEUKOCYTE ESTERASE UR AUTO RFX NEGATIVE (NEGATIVE); MUCUS, URINE RFX SMALL (NEGATIVE); NITRITE, URINE AUTO RFX NEGATIVE (NEGATIVE); RBC, URINE AUTO RFX 1 /HPF (0-3); SPECIFIC GRAVITY UR AUTO RFX 1.009 (1.002-1.035); SQUAM EPITHELIAL CELL UR AURFX 0 /HPF (0-6); WBC, URINE AUTO RFX 2 /HPF (0-3)
[2017-12-23 12:48] LABS: CONTROL LINE HCG INT CTR LINE PRESENT; HCG, SERUM QUALITATIVE NEGATIVE (NEGATIVE)
[2017-12-23 12:59] LABS: ALBUMIN 3.8 GM/DL (3.2-5.2); ALBUMIN/GLOBULIN RATIO 0.81 (1.00-1.93); ALKALINE PHOSPHATASE 61 U/L (45-117); ALT/SGPT 20 U/L (12-78); AMYLASE 50 U/L (25-115); ANION GAP 7 MEQ/L (8-16); AST/SGOT 14 U/L (7-37); BILIRUBIN,DIRECT < 0.1 MG/DL (0.0-0.2); BILIRUBIN,TOTAL 0.2 MG/DL (0.2-1.0); BLOOD UREA NITROGEN 10 MG/DL (7-18); CALCIUM LEVEL 9.2 MG/DL (8.5-10.1); CARBON DIOXIDE LEVEL 25 MEQ/L (21-32); CHLORIDE LEVEL 107 MEQ/L (98-107); CREATININE FOR GFR 0.87 MG/DL (0.55-1.30); GLOMERULAR FILTRATION RATE > 60.0 (>60); GLUCOSE, FASTING 83 MG/DL (70-100); LIPASE 128 U/L (73-393); SODIUM LEVEL 139 MEQ/L (136-145); TOTAL PROTEIN 8.5 GM/DL (6.4-8.2)
[2017-12-23] MEDS ORDERED: ISOVUE-370 76% 100ML VIAL (Q9967) As Ordered (13:22)
== END 2017-12-23 14:26 | disposition home or self-care (01) ==
LOC: M ED 11:31
DX: A08.4 Viral intestinal infection, unspecified (principal); R10.11 Right upper quadrant pain; R10.12 Left upper quadrant pain; R11.2 Nausea with vomiting, unspecified; K58.9 Irritable bowel syndrome, unspecified; K21.9 Gastro-esophageal reflux disease without esophagitis; G89.29 Other chronic pain; R10.2 Pelvic and perineal pain; K27.9 Peptic ulcer, site unspecified, unspecified as acute or chronic, without hemorrhage or perforation; K76.0 Fatty (change of) liver, not elsewhere classified; Z79.899 Other long term (current) drug therapy; Z88.8 Allergy status to other drugs, medicaments and biological substances; Z88.5 Allergy status to narcotic agent; Z88.2 Allergy status to sulfonamides
CPT/HCPCS: C9113

== ENCOUNTER → 2017-12-25 | Outpatient (CLI) | payer OTHER | LOC: M PAIN 09:15 | DX: G89.29 Other chronic pain (principal); R10.2 Pelvic and perineal pain; Z79.891 Long term (current) use of opiate analgesic; G62.9 Polyneuropathy, unspecified; F41.9 Anxiety disorder, unspecified; K58.9 Irritable bowel syndrome, unspecified; Z87.442 Personal history of urinary calculi; Z79.899 Other long term (current) drug therapy; Z88.5 Allergy status to narcotic agent; Z88.8 Allergy status to other drugs, medicaments and biological substances | CPT/HCPCS: G0463 ==

== ENCOUNTER 2018-01-05 06:06 | Emergency (ER) | payer OTHER ==
[2018-01-05] MEDS: HYDROmorphone HCL 1 MG/ML SYRINGE (J1170) IM (07:17)
== END 2018-01-05 07:49 | disposition home or self-care (01) ==
LOC: M ED 06:06
DX: R10.2 Pelvic and perineal pain (principal); G89.29 Other chronic pain; Z79.899 Other long term (current) drug therapy; Z79.890 Hormone replacement therapy; Z88.5 Allergy status to narcotic agent; Z88.1 Allergy status to other antibiotic agents; Z88.2 Allergy status to sulfonamides; Z98.890 Other specified postprocedural states
CPT/HCPCS: J1170

== ENCOUNTER → 2018-01-06 | Outpatient (CLI) | payer OTHER | LOC: M PAIN 11:15 | DX: G89.29 Other chronic pain (principal); R10.2 Pelvic and perineal pain; Z79.891 Long term (current) use of opiate analgesic; G62.9 Polyneuropathy, unspecified; F41.9 Anxiety disorder, unspecified; K58.9 Irritable bowel syndrome, unspecified; Z87.442 Personal history of urinary calculi; Z79.899 Other long term (current) drug therapy; Z88.5 Allergy status to narcotic agent; Z88.8 Allergy status to other drugs, medicaments and biological substances | CPT/HCPCS: G0463 ==

== ENCOUNTER 2018-01-14 09:13 | Emergency (ER) | payer OTHER ==
[2018-01-14] MEDS ORDERED: HYDROmorphone HCL 1 MG/ML SYRINGE (J1170) IM (11:00)
== END 2018-01-14 11:20 | disposition left against medical advice (07) ==
LOC: M ED 09:13
DX: R10.2 Pelvic and perineal pain (principal); Z79.899 Other long term (current) drug therapy; Z88.2 Allergy status to sulfonamides; Z88.5 Allergy status to narcotic agent; Z88.1 Allergy status to other antibiotic agents
CPT/HCPCS: 96372

== ENCOUNTER 2018-02-11 11:13 | Emergency (ER) | payer OTHER ==
[2018-02-11] MEDS: NS 1,000 ML IV (12:10)
[2018-02-11] MEDS: METOCLOPRAMIDE INJ 10MG/2ML VIAL (J2765) IV (12:12)
[2018-02-11 12:25] LABS: BASO % 0.7 % (0.0-1.0); EOS # 0.4 10^3/uL (0.0-0.50); EOS % 7.4 % (0.0-3.0); HEMATOCRIT 40.2 % (36.0-47.0); HEMOGLOBIN 13.9 g/dl (12.0-15.5); IMMATURE GRANULOCYTE % 0.2 % (0-3.0); LYMPH # 2.1 10^3/uL (1.5-4.5); LYMPH % 38.8 % (24.0-44.0); MEAN CORPUSCULAR HEMOGLOBIN 29.6 pg (27.0-33.0); MEAN CORPUSCULAR HGB CONC 34.6 g/dl (32.0-36.5); MEAN CORPUSCULAR VOLUME 85.5 fl (80.0-96.0); MONO # 0.4 10^3/uL (0.0-0.8); MONO % 7.6 % (0.0-5.0); NEUTROPHILS # 2.5 10^3/uL (1.8-7.7); NEUTROPHILS % 45.3 % (36.0-66.0); PLATELET COUNT, AUTOMATED 291 10^3/uL (150-450); RED CELL DISTRIBUTION WIDTH 12.8 % (11.5-14.5); WHITE BLOOD COUNT 5.5 10^3/uL (4.0-10.0)
[2018-02-11 12:57] LABS: ALBUMIN 3.9 GM/DL (3.2-5.2); ALBUMIN/GLOBULIN RATIO 0.91 (1.00-1.93); ALKALINE PHOSPHATASE 68 U/L (45-117); ALT/SGPT 21 U/L (12-78); ANION GAP 8 MEQ/L (8-16); AST/SGOT 19 U/L (7-37); BILIRUBIN,TOTAL 0.3 MG/DL (0.2-1.0); BLOOD UREA NITROGEN 8 MG/DL (7-18); CALCIUM LEVEL 9.5 MG/DL (8.5-10.1); CARBON DIOXIDE LEVEL 27 MEQ/L (21-32); CHLORIDE LEVEL 103 MEQ/L (98-107); CREATININE FOR GFR 0.78 MG/DL (0.55-1.30); GLOMERULAR FILTRATION RATE > 60.0 (>60); GLUCOSE, FASTING 93 MG/DL (70-100); LIPASE 104 U/L (73-393); SODIUM LEVEL 138 MEQ/L (136-145); TOTAL PROTEIN 8.2 GM/DL (6.4-8.2)
== END 2018-02-11 13:27 | disposition left against medical advice (07) ==
LOC: M ED 11:13
DX: Z76.5 Malingerer [conscious simulation] (principal); R10.2 Pelvic and perineal pain; G89.29 Other chronic pain; K21.9 Gastro-esophageal reflux disease without esophagitis; Z98.890 Other specified postprocedural states; Z88.5 Allergy status to narcotic agent; Z88.1 Allergy status to other antibiotic agents; Z88.2 Allergy status to sulfonamides; Z79.899 Other long term (current) drug therapy; Z79.890 Hormone replacement therapy
CPT/HCPCS: J2765

== ENCOUNTER → 2018-03-25 | Outpatient (CLI) | payer OTHER ==
[2018-03-25 09:15] LABS: FREE T4 0.73 NG/DL (0.76-1.46)
[2018-03-29 14:16] LABS: GASTRIN 23 pg/mL (0-115)
[2018-03-29 14:16] LABS: CHROMOGRANIN A 1 nmol/L (0-5)
== END ==
LOC: M LAB 08:19
DX: K58.2 Mixed irritable bowel syndrome (principal)
CPT/HCPCS: 84443

== ENCOUNTER → 2018-03-29 | Outpatient (REF) | payer OTHER | LOC: M LAB REF 12:08 | DX: K58.2 Mixed irritable bowel syndrome (principal) ==

== ENCOUNTER 2018-04-22 12:23 | Day surgery (SDC) | payer OTHER ==
[2018-04-22] MEDS: NS 1,000 ML IV (12:30)
[2018-04-22] MEDS ORDERED: PROPOFOL 200 MG/20 ML VIAL As Ordered (14:22)
[2018-04-22] MEDS ORDERED: LIDOCAINE 2% INJ 100 MG/5 ML SDV (FOR ANES.) As Ordered (14:22)
== END 2018-04-22 15:35 | disposition home or self-care (01) ==
LOC: M OPP 12:23
DX: R10.13 Epigastric pain (principal); R11.0 Nausea; K29.70 Gastritis, unspecified, without bleeding; K29.80 Duodenitis without bleeding; E78.5 Hyperlipidemia, unspecified; Z86.79 Personal history of other diseases of the circulatory system; Z87.19 Personal history of other diseases of the digestive system; K58.9 Irritable bowel syndrome, unspecified; F41.9 Anxiety disorder, unspecified; F32.9 Major depressive disorder, single episode, unspecified; N80.8 Other endometriosis; Z88.8 Allergy status to other drugs, medicaments and biological substances; Z88.2 Allergy status to sulfonamides; Z88.5 Allergy status to narcotic agent; Z79.899 Other long term (current) drug therapy
CPT/HCPCS: 43239

== ENCOUNTER 2018-07-03 23:34 | Emergency (ER) | payer OTHER ==
[2018-07-04] MEDS: METOCLOPRAMIDE INJ 10MG/2ML VIAL (J2765) IV (00:30)
[2018-07-04 00:32] LABS: BASO % 0.4 % (0.0-1.0); EOS # 0.4 10^3/uL (0.0-0.50); EOS % 4.9 % (0.0-3.0); HEMATOCRIT 37.7 % (36.0-47.0); HEMOGLOBIN 12.7 g/dl (12.0-15.5); IMMATURE GRANULOCYTE % 0.1 % (0-3.0); LYMPH # 2.9 10^3/uL (1.5-4.5); LYMPH % 38.8 % (24.0-44.0); MEAN CORPUSCULAR HEMOGLOBIN 29.6 pg (27.0-33.0); MEAN CORPUSCULAR HGB CONC 33.7 g/dl (32.0-36.5); MEAN CORPUSCULAR VOLUME 87.9 fl (80.0-96.0); MONO # 0.6 10^3/uL (0.0-0.8); MONO % 7.6 % (0.0-5.0); NEUTROPHILS # 3.6 10^3/uL (1.8-7.7); NEUTROPHILS % 48.2 % (36.0-66.0); PLATELET COUNT, AUTOMATED 268 10^3/uL (150-450); RED BLOOD COUNT 4.29 10^6/uL (4.00-5.40); RED CELL DISTRIBUTION WIDTH 13.1 % (11.5-14.5); WHITE BLOOD COUNT 7.4 10^3/uL (4.0-10.0)
[2018-07-04] MEDS: KETOROLAC 30 MG/ML VIAL (J1885) IV (00:36)
[2018-07-04 01:05] LABS: ALBUMIN 3.6 GM/DL (3.2-5.2); ALBUMIN/GLOBULIN RATIO 0.95 (1.00-1.93); ALKALINE PHOSPHATASE 58 U/L (45-117); ALT/SGPT 16 U/L (12-78); ANION GAP 9 MEQ/L (8-16); AST/SGOT 15 U/L (7-37); BILIRUBIN,DIRECT < 0.1 MG/DL (0.0-0.2); BILIRUBIN,TOTAL 0.1 MG/DL (0.2-1.0); BLOOD UREA NITROGEN 10 MG/DL (7-18); CALCIUM LEVEL 9.2 MG/DL (8.5-10.1); CARBON DIOXIDE LEVEL 26 MEQ/L (21-32); CHLORIDE LEVEL 105 MEQ/L (98-107); CREATININE FOR GFR 0.88 MG/DL (0.55-1.30); GLOMERULAR FILTRATION RATE > 60.0 (>60); GLUCOSE, FASTING 85 MG/DL (70-100); POTASSIUM SERUM 4.2 MEQ/L (3.5-5.1); SODIUM LEVEL 140 MEQ/L (136-145); TOTAL PROTEIN 7.4 GM/DL (6.4-8.2)
[2018-07-04] MEDS ORDERED: ISOVUE-370 76% 100ML VIAL (Q9967) As Ordered (01:09)
[2018-07-04 01:20] LABS: KETONE, URINE AUTO RFX NEGATIVE (NEGATIVE); LEUKOCYTE ESTERASE UR AUTO RFX NEGATIVE (NEGATIVE); NITRITE, URINE AUTO RFX NEGATIVE (NEGATIVE); RBC, URINE AUTO RFX 0 /HPF (0-3); SPECIFIC GRAVITY UR AUTO RFX 1.012 (1.002-1.035); SQUAM EPITHELIAL CELL UR AURFX 1 /HPF (0-6); WBC, URINE AUTO RFX 0 /HPF (0-3)
== END 2018-07-04 02:38 | disposition home or self-care (01) ==
LOC: M ED 23:34
DX: K52.9 Noninfective gastroenteritis and colitis, unspecified (principal); G89.29 Other chronic pain; R10.2 Pelvic and perineal pain; K21.9 Gastro-esophageal reflux disease without esophagitis; F33.9 Major depressive disorder, recurrent, unspecified; F41.9 Anxiety disorder, unspecified; K58.9 Irritable bowel syndrome, unspecified; K27.9 Peptic ulcer, site unspecified, unspecified as acute or chronic, without hemorrhage or perforation; N80.9 Endometriosis, unspecified; Z79.899 Other long term (current) drug therapy; Z88.5 Allergy status to narcotic agent; Z88.8 Allergy status to other drugs, medicaments and biological substances
CPT/HCPCS: Q9967

== ENCOUNTER → 2018-07-27 | Outpatient (REF) | payer OTHER | LOC: M SFHCLERA 10:59 | DX: M54.9 Dorsalgia, unspecified (principal) | CPT/HCPCS: 87086 ==

== ENCOUNTER → 2018-07-27 | Outpatient (CLI) | payer OTHER | LOC: M LRY 10:43 | DX: M54.9 Dorsalgia, unspecified (principal) | CPT/HCPCS: 74018; 81002 ==

== ENCOUNTER → 2018-08-14 | Outpatient (CLI) | payer OTHER ==
[~2018-08-14] MED LIST changes: +AMIT50TA PO; +CIPR-249 PO; -ESTR2TA PO; +ESTR2TAB2 PO; +HYDR-3713; +HYDR-3713 PO; +IBUP-1022 PO; +LYRI75CA PO; +NAPR-49 PO; +NAPR-885 PO; -NAPR500T PO; +NEUR300C PO; +ONDA4TAB6; +OXYC1TAB15 PO; -PANT40TA2 PO; +PANT40TA3 PO; +PERC10TA26 PO; +PERC5TAB12 PO; +PRED1TABL PO; +PREG100CA; +TIZA2CAP PO; +TRAM50TA2 PO; +TYLE325T5 PO; +ZANT300T PO; +ZOFR4TAB14 PO; -ZOFR4TAB3 PO
--- NOTE | 2018-08-14 10:50 | REP ---
RIGHT RIBS: REASON: Rib pain. The accompanying frontal view of the chest has been compared to previous frontal view of the chest obtained as part of an abdominal series on 04/18/2017. FINDINGS: Five views of the ribs show no acute fracture or destructive osseous lesion. The accompanying frontal view of the chest shows no cardiomegaly, infiltrates, effusions or pneumothoraces. IMPRESSION: Negative rib series. There is no change in appearance of the chest. Electronically Signed by Jg Pena DO 08/14/2018 11:16 A
== END ==
LOC: M LRY 10:15
PROVIDERS: ATTEND Physician Assistant
DX: R07.81 Pleurodynia (principal)

== ENCOUNTER 2018-08-17 08:30 | Emergency (ER) | payer OTHER ==
[2018-08-17] MEDS: NORCO, ANEXSIA 5/325MG TABLET (HYDROcodone/ACETAMINOPHEN) PO (09:17)
== END 2018-08-17 10:28 | disposition home or self-care (01) ==
LOC: M ED 08:30
DX: S20.211A Contusion of right front wall of thorax, initial encounter (principal); V00.311A Fall from snowboard, initial encounter; Y92.830 Public park as the place of occurrence of the external cause; Y93.23 Activity, snow (alpine) (downhill) skiing, snowboarding, sledding, tobogganing and snow tubing; Y99.9 Unspecified external cause status; F41.9 Anxiety disorder, unspecified; F32.9 Major depressive disorder, single episode, unspecified; K21.9 Gastro-esophageal reflux disease without esophagitis; K58.9 Irritable bowel syndrome, unspecified; K27.9 Peptic ulcer, site unspecified, unspecified as acute or chronic, without hemorrhage or perforation; Z87.442 Personal history of urinary calculi; G89.29 Other chronic pain; R10.2 Pelvic and perineal pain; Z79.899 Other long term (current) drug therapy; Z88.5 Allergy status to narcotic agent; Z88.2 Allergy status to sulfonamides; Z88.1 Allergy status to other antibiotic agents
CPT/HCPCS: 71101

== ENCOUNTER 2018-10-08 15:21 | Emergency (ER) | payer OTHER ==
[~2018-10-08] VITALS: Ht 154.9 cm; Wt 76.8 kg
[~2018-10-08 15:21] MED LIST changes: -NAPR-49 PO; +NAPR-50 PO; -ZANT300T PO; +ZANT300T9 PO
[2018-10-08] MEDS ORDERED: NS 1,000 ML IV ONE (15:45)
[2018-10-08] MEDS ORDERED: CIPR500T39 (15:47)
[2018-10-08] MEDS ORDERED: CARA1TAB6 PO (15:47)
[2018-10-08] MEDS ORDERED: METR-201 (15:47)
[2018-10-08] MEDS ORDERED: bentyl PO (15:48)
[2018-10-08 16:08] LABS: BASO % 0.6 % (0.0-1.0); EOS # 0.4 10^3/uL (0.0-0.50); EOS % 8.4 % (0.0-3.0); HEMATOCRIT 38.9 % (36.0-47.0); LYMPH # 1.9 10^3/uL (1.5-4.5); LYMPH % 36.5 % (24.0-44.0); MEAN CORPUSCULAR HEMOGLOBIN 29.7 pg (27.0-33.0); MEAN CORPUSCULAR HGB CONC 33.4 g/dl (32.0-36.5); MEAN CORPUSCULAR VOLUME 88.8 fl (80.0-96.0); MONO # 0.3 10^3/uL (0.0-0.8); MONO % 6.5 % (0.0-5.0); NEUTROPHILS # 2.5 10^3/uL (1.8-7.7); NEUTROPHILS % 47.8 % (36.0-66.0); PLATELET COUNT, AUTOMATED 236 10^3/uL (150-450); RED BLOOD COUNT 4.38 10^6/uL (4.00-5.40); WHITE BLOOD COUNT 5.2 10^3/uL (4.0-10.0)
[2018-10-08 16:21] LABS: INR 1.04; PROTHROMBIN TIME 13.7 SECONDS (12.1-14.4)
[2018-10-08] MEDS: HYDROMORPHONE HCL 0.5 MG/ 0.5 ML SYRINGE (J1170 PER 1) IV PRN ×2 (16:28→18:00)
[2018-10-08 16:43] LABS: ALBUMIN 3.5 GM/DL (3.2-5.2); ALT/SGPT 17 U/L (12-78); AMYLASE 43 U/L (25-115); BILIRUBIN,DIRECT < 0.1 MG/DL (0.0-0.2); BILIRUBIN,TOTAL 0.2 MG/DL (0.2-1.0); BLOOD UREA NITROGEN 8 MG/DL (7-18); CALCIUM LEVEL 8.8 MG/DL (8.5-10.1); CARBON DIOXIDE LEVEL 27 MEQ/L (21-32); CHLORIDE LEVEL 102 MEQ/L (98-107); CREATININE FOR GFR 0.88 MG/DL (0.55-1.30); GLOMERULAR FILTRATION RATE > 60.0 (>60); GLUCOSE, FASTING 122 MG/DL (70-100); LIPASE 91 U/L (73-393); POTASSIUM SERUM 3.7 MEQ/L (3.5-5.1); SODIUM LEVEL 138 MEQ/L (136-145); TOTAL PROTEIN 7.4 GM/DL (6.4-8.2)
[2018-10-08] MEDS ORDERED: ISOVUE-370 76% 100ML VIAL (Q9967) As Ordered ONE (16:53)
--- NOTE | 2018-10-08 18:35 | REP ---
CT ABDOMEN AND PELVIS WITH IV CONTRAST: TECHNIQUE: Axial contrast enhanced images from the lung bases to the pubic symphysis using 100 mL Isovue 370 intravenous contrast material with multiplanar reformations. Visualized lung bases demonstrate minor fibroatelectatic change. The liver demonstrates no mass. There is focal fatty infiltration along the fissure for the ligamentum teres. The patient has had a prior cholecystectomy. There is no biliary dilatation. The spleen, adrenals, pancreas, and kidneys are normal. There is no hydronephrosis. There is no abdominal aortic aneurysm. There is no adenopathy. There is no free air or free fluid. There is no bowel wall thickening. There is no appendicitis. There is no pelvic mass. The patient has had a hysterectomy. Urinary bladder is mildly distended and grossly unremarkable. IMPRESSION: No acute abnormalities identified in the abdomen or pelvis. No free air or free fluid. No bowel wall thickening or appendicitis. Patient is status post cholecystectomy with no biliary dilatation. Electronically Signed by Ab Ballesteros MD 10/08/2018 07:42 P
[2018-10-08] MEDS ORDERED: ONDANSETRON 4MG/2ML VIAL (J2405) IV ONE (19:45)
[2018-10-08] MEDS ORDERED: PERCOCET 5MG/325MG TAB PO ONE (19:45)
[2018-10-08] MEDS ORDERED: OXYC1TAB23 PO (19:49)
[2018-10-08] MEDS ORDERED: ZOFR4TAB16 PO (19:54)
[2018-10-08 20:00] VITALS: BP 114/84
[2018-10-08] MEDS ORDERED: NORCO 5/325MG TABLET (BULK FOR ED) PO ONE (20:00)
== END 2018-10-08 20:09 | disposition home or self-care (01) ==
LOC: M ED 15:21
DX: K92.2 Gastrointestinal hemorrhage, unspecified (principal); K57.32 Diverticulitis of large intestine without perforation or abscess without bleeding; F41.9 Anxiety disorder, unspecified; K58.9 Irritable bowel syndrome, unspecified; Z87.442 Personal history of urinary calculi; Z79.899 Other long term (current) drug therapy; Z88.5 Allergy status to narcotic agent; Z88.2 Allergy status to sulfonamides; Z88.1 Allergy status to other antibiotic agents
CPT/HCPCS: 74177; 80048; 80076; 81001; 82150; 83605; 83690; 85025; 85610; 85730; 86850; 86900; 86901; 87040; 93041; 96361; 96374; 96375; 99284; J1170; J2405; Q9967

== ENCOUNTER 2018-10-13 16:02 | Emergency (ER) | payer OTHER ==
[~2018-10-13] VITALS: Ht 154.9 cm; Wt 76.8 kg
[~2018-10-13 16:02] MED LIST changes: +CIPR500T39; +METR-201; +ZOFR4TAB16 PO; +bentyl PO
[2018-10-13 16:03] VITALS: BP 134/94
[2018-10-13 17:29] LABS: BASO # 0.1 10^3/uL (0.0-0.2); BASO % 0.9 % (0.0-1.0); EOS # 0.4 10^3/uL (0.0-0.50); EOS % 5.8 % (0.0-3.0); HEMATOCRIT 41.6 % (36.0-47.0); HEMOGLOBIN 14.3 g/dl (12.0-15.5); LYMPH # 2.7 10^3/uL (1.5-4.5); LYMPH % 38.6 % (24.0-44.0); MEAN CORPUSCULAR HEMOGLOBIN 29.5 pg (27.0-33.0); MEAN CORPUSCULAR HGB CONC 34.4 g/dl (32.0-36.5); MONO # 0.5 10^3/uL (0.0-0.8); MONO % 6.7 % (0.0-5.0); NEUTROPHILS # 3.4 10^3/uL (1.8-7.7); NEUTROPHILS % 47.9 % (36.0-66.0); PLATELET COUNT, AUTOMATED 317 10^3/uL (150-450); RED BLOOD COUNT 4.84 10^6/uL (4.00-5.40)
[2018-10-13 17:44] LABS: ALBUMIN 4.2 GM/DL (3.2-5.2); ALT/SGPT 19 U/L (12-78); BILIRUBIN,DIRECT < 0.1 MG/DL (0.0-0.2); BILIRUBIN,TOTAL 0.3 MG/DL (0.2-1.0); BLOOD UREA NITROGEN 8 MG/DL (7-18); CALCIUM LEVEL 9.5 MG/DL (8.5-10.1); CARBON DIOXIDE LEVEL 26 MEQ/L (21-32); CHLORIDE LEVEL 101 MEQ/L (98-107); CREATININE FOR GFR 0.88 MG/DL (0.55-1.30); GLOMERULAR FILTRATION RATE > 60.0 (>60); GLUCOSE, FASTING 98 MG/DL (70-100); LIPASE 107 U/L (73-393); SODIUM LEVEL 137 MEQ/L (136-145); TOTAL PROTEIN 8.1 GM/DL (6.4-8.2)
== END 2018-10-13 19:26 | disposition left against medical advice (07) ==
LOC: M ED 16:02
DX: R10.9 Unspecified abdominal pain (principal); R11.10 Vomiting, unspecified; Z53.21 Procedure and treatment not carried out due to patient leaving prior to being seen by health care provider

== ENCOUNTER 2018-10-15 12:40 | Emergency (ER) | payer OTHER ==
[~2018-10-15] VITALS: Ht 154.9 cm; Wt 76.4 kg
[2018-10-15] MEDS ORDERED: GI COCKTAIL 50ML BTL(HYOSCYAMINE/MAALOX/LIDOCAINE VISCOUS)(1:3:1) PO ONE (13:15)
[2018-10-15] MEDS ORDERED: ONDANSETRON 4 MG ORAL DISINTEGRATING TAB (Q0162 PER 1MG) PO ONE (13:15)
[2018-10-15 13:25] LABS: BASO % 0.7 % (0.0-1.0); EOS # 0.4 10^3/uL (0.0-0.50); EOS % 6.3 % (0.0-3.0); HEMATOCRIT 39.1 % (36.0-47.0); HEMOGLOBIN 13.1 g/dl (12.0-15.5); LYMPH # 2.3 10^3/uL (1.5-4.5); LYMPH % 42.2 % (24.0-44.0); MEAN CORPUSCULAR HEMOGLOBIN 29.2 pg (27.0-33.0); MEAN CORPUSCULAR HGB CONC 33.5 g/dl (32.0-36.5); MEAN CORPUSCULAR VOLUME 87.1 fl (80.0-96.0); MONO # 0.4 10^3/uL (0.0-0.8); MONO % 6.5 % (0.0-5.0); NEUTROPHILS # 2.5 10^3/uL (1.8-7.7); NEUTROPHILS % 44.1 % (36.0-66.0); PLATELET COUNT, AUTOMATED 293 10^3/uL (150-450); RED BLOOD COUNT 4.49 10^6/uL (4.00-5.40); WHITE BLOOD COUNT 5.6 10^3/uL (4.0-10.0)
[2018-10-15 13:38] LABS: INR 0.95; PROTHROMBIN TIME 12.8 SECONDS (12.1-14.4)
[2018-10-15 13:52] LABS: ALBUMIN 3.9 GM/DL (3.2-5.2); ALT/SGPT 16 U/L (12-78); BILIRUBIN,DIRECT 0.1 MG/DL (0.0-0.2); BILIRUBIN,TOTAL 0.3 MG/DL (0.2-1.0); BLOOD UREA NITROGEN 10 MG/DL (7-18); CALCIUM LEVEL 9.3 MG/DL (8.5-10.1); CARBON DIOXIDE LEVEL 26 MEQ/L (21-32); CHLORIDE LEVEL 102 MEQ/L (98-107); CREATININE FOR GFR 0.79 MG/DL (0.55-1.30); GLOMERULAR FILTRATION RATE > 60.0 (>60); GLUCOSE, FASTING 86 MG/DL (70-100); LIPASE 134 U/L (73-393); POTASSIUM SERUM 4.2 MEQ/L (3.5-5.1); SODIUM LEVEL 135 MEQ/L (136-145); TOTAL PROTEIN 7.6 GM/DL (6.4-8.2)
--- NOTE | 2018-10-15 14:02 | REP ---
CT of the abdomen pelvis without IV or bowel contrast: Comparison is 10/08/2018 with IV contrast. The visualized lung jessica are unremarkable. The unenhanced hepatic parenchyma, pancreas and spleen are unremarkable. There are surgical clips in the gallbladder fossa. The adrenals, unenhanced kidneys and abdominal aorta are unremarkable. No retroperitoneal adenopathy or mass. No bowel distension or obstruction. The mesentery is unremarkable. Pelvis: The appendix is unremarkable. There is a hysterectomy. Vaginal cuff and adnexa are unremarkable. The bladder is unremarkable. There is no adenopathy or ascites. Impression: There are no inflammatory changes, adenopathy or ascites. No bowel distension or obstruction or wall thickening. Hysterectomy. Cholecystectomy. Electronically Signed by Ab Edmond MD 10/15/2018 01:53 P
[2018-10-15 14:36] VITALS: BP 112/74
== END 2018-10-15 14:38 | disposition home or self-care (01) ==
LOC: M ED 12:40
DX: R10.9 Unspecified abdominal pain (principal); G89.29 Other chronic pain; R19.7 Diarrhea, unspecified; Z88.5 Allergy status to narcotic agent; Z88.1 Allergy status to other antibiotic agents; Z88.2 Allergy status to sulfonamides; Z79.899 Other long term (current) drug therapy
CPT/HCPCS: 36415; 74176; 80048; 80076; 81001; 83690; 85025; 85610; 99283; Q0162

== ENCOUNTER 2018-11-10 06:25 | Emergency (ER) | payer OTHER ==
[~2018-11-10] VITALS: Ht 154.9 cm; Wt 77.3 kg
[2018-11-10] MEDS ORDERED: KETOROLAC 30 MG/ML VIAL (J1885) IV ONE (07:00)
[2018-11-10] MEDS ORDERED: ONDANSETRON 4MG/2ML VIAL (J2405) IV ONE (07:00)
[2018-11-10 07:11] LABS: APPEARANCE, URINE CLEAR (CLEAR); BACTERIA, URINE AUTO 1+ (NEGATIVE); BILIRUBIN, URINE AUTO NEGATIVE (NEGATIVE); BLOOD, URINE BLOOD NEGATIVE (NEGATIVE); COLOR, URINE YELLOW (YELLOW); GLUCOSE, URINE (UA) AUTO NEGATIVE (NEGATIVE); KETONE, URINE AUTO NEGATIVE (NEGATIVE); LEUKOCYTE ESTERASE, URINE AUTO NEGATIVE (NEGATIVE); MUCUS, URINE SMALL (NEGATIVE); NITRITE, URINE AUTO NEGATIVE (NEGATIVE); PROTEIN, URINE AUTO NEGATIVE (NEGATIVE); RBC, URINE AUTO 1 /HPF (0-3); SQUAMOUS EPITHELIAL CELL UR AU 1 /HPF (0-6); UROBILINOGEN, URINE AUTO 0.2 mg/dL (0.0-2.0); WBC, URINE AUTO 1 /HPF (0-3)
[2018-11-10 07:17] LABS: BASO % 0.8 % (0.0-1.0); EOS # 0.5 10^3/uL (0.0-0.50); EOS % 9.3 % (0.0-3.0); HEMATOCRIT 37.5 % (36.0-47.0); HEMOGLOBIN 12.8 g/dl (12.0-15.5); LYMPH # 2.2 10^3/uL (1.5-4.5); LYMPH % 42.9 % (24.0-44.0); MEAN CORPUSCULAR HEMOGLOBIN 29.4 pg (27.0-33.0); MEAN CORPUSCULAR HGB CONC 34.1 g/dl (32.0-36.5); MEAN CORPUSCULAR VOLUME 86.2 fl (80.0-96.0); MONO # 0.4 10^3/uL (0.0-0.8); MONO % 6.9 % (0.0-5.0); NEUTROPHILS % 39.9 % (36.0-66.0); PLATELET COUNT, AUTOMATED 248 10^3/uL (150-450); RED BLOOD COUNT 4.35 10^6/uL (4.00-5.40)
[2018-11-10 07:44] LABS: BLOOD UREA NITROGEN 12 MG/DL (7-18); C REACTIVE PROTEIN QUANTITATIV 0.84 MG/DL (0.00-0.30); CALCIUM LEVEL 8.9 MG/DL (8.5-10.1); CARBON DIOXIDE LEVEL 25 MEQ/L (21-32); CHLORIDE LEVEL 105 MEQ/L (98-107); CREATININE FOR GFR 0.86 MG/DL (0.55-1.30); GLOMERULAR FILTRATION RATE > 60.0 (>60); GLUCOSE, FASTING 91 MG/DL (70-100); POTASSIUM SERUM 3.8 MEQ/L (3.5-5.1); SODIUM LEVEL 139 MEQ/L (136-145)
[2018-11-10] MEDS ORDERED: DILUENT IV ONE (08:00)
[2018-11-10] MEDS ORDERED: KETAMINE IV ONE (08:00)
[2018-11-10] MEDS ORDERED: NACL IV ONE (08:00)
--- NOTE | 2018-11-10 08:25 | REP ---
PELVIC AND ENDOVAGINAL PROBE ULTRASOUND: 11/10/2018. Clinical history: Hysterectomy 2014 with mesh and sling in 2015. Evaluate for pelvic fluid collection or abscess. Left lower quadrant pelvic pain. Comparison: CT 10/15/2018. Findings: Transabdominal and endovaginal probes were utilized for this examination. The bladder measured 6.7 x 3.2 x 4.9 cm. Uterus absent. Vaginal cuff intact. No visible adnexal mass or pelvic fluid collection. No free pelvic fluid. Peristalsing bowel is seen. Impression: 1. Negative transabdominal and endovaginal probe pelvic ultrasound for mass, fluid collection or abscess. No free fluid. 2. Status post hysterectomy and bilateral oophorectomy. No adnexal mass. Vaginal cuff grossly intact. Electronically Signed by Jimbo Johns MD 11/10/2018 09:43 P
[2018-11-10 08:34] VITALS: BP 103/73
[2018-11-10] MEDS ORDERED: KETO10TAB PO (08:34)
[2018-11-10] MEDS ORDERED: ONDA4TAB6 PO (08:34)
== END 2018-11-10 09:26 | disposition home or self-care (01) ==
LOC: M ED 06:25
DX: G89.29 Other chronic pain (principal); R10.2 Pelvic and perineal pain; F33.9 Major depressive disorder, recurrent, unspecified; F41.9 Anxiety disorder, unspecified; K21.9 Gastro-esophageal reflux disease without esophagitis; K58.9 Irritable bowel syndrome, unspecified; K27.9 Peptic ulcer, site unspecified, unspecified as acute or chronic, without hemorrhage or perforation; Z87.19 Personal history of other diseases of the digestive system; Z87.42 Personal history of other diseases of the female genital tract; Z87.442 Personal history of urinary calculi; Z79.899 Other long term (current) drug therapy; Z79.890 Hormone replacement therapy; Z88.1 Allergy status to other antibiotic agents; Z88.2 Allergy status to sulfonamides; Z88.5 Allergy status to narcotic agent
CPT/HCPCS: 36415; 76830; 76857; 80048; 81001; 85025; 86140; 94760; 96365; 96375; 99284; J1885; J2405

== ENCOUNTER 2018-11-29 12:52 | Emergency (ER) | payer OTHER ==
[~2018-11-29] VITALS: Ht 154.9 cm; Wt 84.4 kg
[~2018-11-29 12:52] MED LIST changes: +HYDR-3715 PO; -METR-201; +METR-265; -NAPR-50 PO; +NAPR-837 PO; -NORCOTAB PO; +ONDA4TAB6 PO
[2018-11-29] MEDS ORDERED: CYCL10TA (13:09)
[2018-11-29] MEDS ORDERED: ESTR62CR (13:09)
[2018-11-29] MEDS ORDERED: NS 1,000 ML IV ONE (15:15)
[2018-11-29 15:43] LABS: BASO % 0.5 % (0.0-1.0); EOS # 0.6 10^3/uL (0.0-0.50); EOS % 10.8 % (0.0-3.0); HEMATOCRIT 37.9 % (36.0-47.0); HEMOGLOBIN 12.9 g/dl (12.0-15.5); LYMPH # 2.2 10^3/uL (1.5-4.5); LYMPH % 36.4 % (24.0-44.0); MEAN CORPUSCULAR HEMOGLOBIN 30.1 pg (27.0-33.0); MEAN CORPUSCULAR VOLUME 88.3 fl (80.0-96.0); MONO # 0.4 10^3/uL (0.0-0.8); MONO % 7.1 % (0.0-5.0); NEUTROPHILS # 2.6 10^3/uL (1.8-7.7); NEUTROPHILS % 44.9 % (36.0-66.0); PLATELET COUNT, AUTOMATED 236 10^3/uL (150-450); RED BLOOD COUNT 4.29 10^6/uL (4.00-5.40); WHITE BLOOD COUNT 5.9 10^3/uL (4.0-10.0)
[2018-11-29 15:54] LABS: INR 1.03; PROTHROMBIN TIME 13.6 SECONDS (12.1-14.4)
[2018-11-29 16:16] LABS: ALBUMIN 3.8 GM/DL (3.2-5.2); ALT/SGPT 20 U/L (12-78); BILIRUBIN,DIRECT < 0.1 MG/DL (0.0-0.2); BILIRUBIN,TOTAL 0.3 MG/DL (0.2-1.0); BLOOD UREA NITROGEN 11 MG/DL (7-18); CALCIUM LEVEL 9.2 MG/DL (8.5-10.1); CARBON DIOXIDE LEVEL 25 MEQ/L (21-32); CHLORIDE LEVEL 106 MEQ/L (98-107); CREATININE FOR GFR 0.84 MG/DL (0.55-1.30); GLOMERULAR FILTRATION RATE > 60.0 (>60); GLUCOSE, FASTING 92 MG/DL (70-100); LIPASE 89 U/L (73-393); POTASSIUM SERUM 4.2 MEQ/L (3.5-5.1); SODIUM LEVEL 139 MEQ/L (136-145); TOTAL PROTEIN 7.6 GM/DL (6.4-8.2)
[2018-11-29] MEDS ORDERED: KETOROLAC 30 MG/ML VIAL (J1885) IV ONE (17:00)
[2018-11-29] MEDS ORDERED: ONDANSETRON 4MG/2ML VIAL (J2405) IV ONE (17:00)
[2018-11-29] MEDS ORDERED: DICYCLOMINE 10 MG CAP PO ONE (18:00)
[2018-11-29] MEDS ORDERED: DICY1CAP8 PO (18:28)
[2018-11-29] MEDS ORDERED: ONDA4TAB6 PO (18:28)
[2018-11-29 19:03] VITALS: BP 132/68
== END 2018-11-29 19:05 | disposition home or self-care (01) ==
LOC: M ED 12:52
DX: A04.2 Enteroinvasive Escherichia coli infection (principal); R19.7 Diarrhea, unspecified; Z79.899 Other long term (current) drug therapy; Z88.2 Allergy status to sulfonamides; Z88.5 Allergy status to narcotic agent; Z88.8 Allergy status to other drugs, medicaments and biological substances
CPT/HCPCS: 80048; 80076; 83690; 85025; 85610; 85730; 87507; 96361; 96374; 96375; 99284; J1885; J2405

== ENCOUNTER 2018-12-08 09:19 | Emergency (ER) | payer OTHER ==
[~2018-12-08] VITALS: Ht 154.9 cm; Wt 81.8 kg
[~2018-12-08 09:19] MED LIST changes: +CYCL10TA; +DICY1CAP8 PO; +ESTR62CR
--- NOTE | 2018-12-08 10:35 | REP ---
Right foot four views : There is no fracture or dislocation. Mineralization and joint spaces are normal. There are no calcifications or foreign bodies. Impression: Negative right foot . Electronically Signed by Ab Edmond MD 12/08/2018 10:27 A
[2018-12-08 10:50] VITALS: BP 134/61
== END 2018-12-08 10:51 | disposition home or self-care (01) ==
LOC: M ED 09:19
DX: S90.31XA Contusion of right foot, initial encounter (principal); S90.211A Contusion of right great toe with damage to nail, initial encounter; W20.8XXA Other cause of strike by thrown, projected or falling object, initial encounter; Y92.009 Unspecified place in unspecified non-institutional (private) residence as the place of occurrence of the external cause; Z88.1 Allergy status to other antibiotic agents; Z88.2 Allergy status to sulfonamides; Z88.5 Allergy status to narcotic agent; Z79.818 Long term (current) use of other agents affecting estrogen receptors and estrogen levels; Z79.899 Other long term (current) drug therapy

== ENCOUNTER 2018-12-25 09:38 | Emergency (ER) | payer OTHER ==
[~2018-12-25] VITALS: Ht 154.9 cm; Wt 79.5 kg
[2018-12-25] MEDS ORDERED: CYCL10TA (09:46)
[2018-12-25] MEDS ORDERED: KETO10TAB PO (09:46)
[2018-12-25] MEDS ORDERED: PERCOCET 5MG/325MG TAB PO ONE (10:30)
--- NOTE | 2018-12-25 11:02 | REP ---
TEMPOROMANDIBULAR JOINTS, FIVE VIEWS: HISTORY: Joint symptoms. COMPARISON: 03/25/2017 The examination is limited secondary to position. There is no definite fracture or dislocation. There is no bone lesion. The visualized sinuses are clear. IMPRESSION: Limited examination demonstrating no fracture or dislocation. Electronically Signed by Delvin Gaston MD 12/25/2018 11:04 A
[2018-12-25] MEDS ORDERED: PERC5TAB12 PO (11:24)
[2018-12-25 11:29] VITALS: BP 122/79
== END 2018-12-25 11:32 | disposition home or self-care (01) ==
LOC: M ED 09:38
DX: M26.602 Left temporomandibular joint disorder, unspecified (principal); K21.9 Gastro-esophageal reflux disease without esophagitis; K58.9 Irritable bowel syndrome, unspecified; K27.9 Peptic ulcer, site unspecified, unspecified as acute or chronic, without hemorrhage or perforation; Z79.899 Other long term (current) drug therapy; Z88.1 Allergy status to other antibiotic agents; Z88.2 Allergy status to sulfonamides; Z88.5 Allergy status to narcotic agent

== ENCOUNTER 2019-01-05 02:52 | Emergency (ER) | payer OTHER ==
[~2019-01-05] VITALS: Ht 154.9 cm; Wt 80.9 kg
[2019-01-05] MEDS ORDERED: BUPIVACAINE LIPOSOME/PF 1.3% 20ML VIAL (13.3MG/ML)(EXPAREL)(C9290 PER1MG) INFIL ONE (05:15)
[2019-01-05 06:05] VITALS: BP 135/68
== END 2019-01-05 06:08 | disposition home or self-care (01) ==
LOC: M ED 02:52
DX: M26.623 Arthralgia of bilateral temporomandibular joint (principal); F33.9 Major depressive disorder, recurrent, unspecified; F41.9 Anxiety disorder, unspecified; G89.29 Other chronic pain; R10.2 Pelvic and perineal pain; Z79.899 Other long term (current) drug therapy; Z88.1 Allergy status to other antibiotic agents; Z88.2 Allergy status to sulfonamides; Z88.5 Allergy status to narcotic agent
CPT/HCPCS: 99283; C9290

== ENCOUNTER 2019-02-07 09:20 | Emergency (ER) | payer OTHER ==
[~2019-02-07] VITALS: Ht 154.9 cm; Wt 81.8 kg
[2019-02-07] MEDS ORDERED: BUPIVACAINE HCL 0.5% 10 ML VIAL SC ONE (10:30)
[2019-02-07] MEDS ORDERED: PERC5TAB12 PO (11:08)
[2019-02-07 11:09] VITALS: BP 96/66
== END 2019-02-07 11:18 | disposition home or self-care (01) ==
LOC: M ED 09:20
DX: M26.623 Arthralgia of bilateral temporomandibular joint (principal); Z88.1 Allergy status to other antibiotic agents; Z88.2 Allergy status to sulfonamides; Z88.5 Allergy status to narcotic agent

== ENCOUNTER 2019-02-18 09:02 | Emergency (ER) | payer OTHER ==
[~2019-02-18] VITALS: Ht 154.9 cm; Wt 79.5 kg
[2019-02-18] MEDS ORDERED: IBUP-1022 PO (09:27)
[2019-02-18] MEDS ORDERED: CYCL10TA PO (09:27)
[2019-02-18 10:42] VITALS: BP 114/77
== END 2019-02-18 10:44 | disposition home or self-care (01) ==
LOC: M ED 09:02
DX: M26.601 Right temporomandibular joint disorder, unspecified (principal); K21.9 Gastro-esophageal reflux disease without esophagitis; K57.92 Diverticulitis of intestine, part unspecified, without perforation or abscess without bleeding; K58.9 Irritable bowel syndrome, unspecified; K27.9 Peptic ulcer, site unspecified, unspecified as acute or chronic, without hemorrhage or perforation; F41.9 Anxiety disorder, unspecified; F32.9 Major depressive disorder, single episode, unspecified; Z87.442 Personal history of urinary calculi; R10.2 Pelvic and perineal pain; Z87.42 Personal history of other diseases of the female genital tract; Z79.899 Other long term (current) drug therapy; Z79.890 Hormone replacement therapy; Z90.710 Acquired absence of both cervix and uterus; Z88.5 Allergy status to narcotic agent; Z88.2 Allergy status to sulfonamides; Z88.1 Allergy status to other antibiotic agents